=== PATIENT | male | born 1950 | race Two or more races ===

== ENCOUNTER → 2024-11-04 | Outpatient (CLI) | payer MEDICARE, BC, SELFPAY ==
[2024-11-04 09:49] LABS: Collection Type, Urine Clean Catch; RBC,Urine 0 /hpf (0-3); Squamous Epithelial Cell,Urine 0 /hpf (0-5)
[2024-11-04 10:22] LABS: Basophils # (Auto) 0.1 Thou/mm3 (0.0-0.2); Basophils % (Auto) 2 % (0-2.5); Eosinophils # (Auto) 0.3 Thou/mm3 (0.0-0.5); Eosinophils % (Auto) 14 % (0-10); Hemoglobin 11.8 g/dL (13.5-16.0); Immature Granulocytes % (Auto) 2 % (0-0); Immature Granulocytes Auto 0.04 Thou/mm3 (0.00-0.00); Lymphocytes # (Auto) 0.5 Thou/mm3 (1.0-4.8); Lymphocytes % (Auto) 21 % (10-50); Mean Corpuscular HGB Conc 34.7 g/dl (31.0-37.0); Mean Corpuscular Hemoglobin 30.3 pg (25.0-35.0); Mean Corpuscular Volume 87 fL (80-100); Monocytes # (Auto) 0.3 Thou/mm3 (0.0-0.8); Monocytes % (Auto) 12 % (0-12); Neutrophils # (Auto) 1.2 Thou/mm3 (1.8-7.7); Neutrophils % (Auto) 50 % (37-80); Nucleated Red Blood Cell % 0 /100 WBC (0); Platelet Count 92 Thou/mm3 (140-440); RDW Standard Deviation 45.3 fL (35.1-43.9)
[2024-11-04 10:25] LABS: Bacteria,Urine Rare; Bilirubin,Urine Negative (Negative); Blood,Urine Negative (Negative); Clarity,Urine Clear (Clear/Hazy); Color,Urine Lt-Yellow (Lt Yel-Yel); Glucose, Urine 3+ (Negative); Ketones,Urine Negative (Negative); Leukocyte Esterase,Urine Negative (Negative); Nitrite,Urine Negative (Negative); PH,Urine 5.5 (5.0-7.0); Protein,Urine 1+ (Neg - Trace); Specific Gravity,Urine 1.014 (1.001-1.035); Urobilinogen,Urine Negative mg/dL (0.0-1.0); WBC,Urine 1 /hpf (0-5)
[2024-11-04 10:31] LABS: Glucose Estimated Average 146 mg/dL (80-131); Hemoglobin A1C 6.7 % Hgb (4.8-6.0)
[2024-11-04 10:36] LABS: Creatinine MALB Rnd Ur 99 mg/dL (30-125); Microalbumin Creat Ratio 122 mg/gCrea (<30); Microalbumin, Random Urine 121 mg/L (0-300)
[2024-11-04 10:45] LABS: White Blood Count 2.5 Thou/mm3 (3.8-10.6)
[2024-11-04 11:02] LABS: Alanine Aminotransferase 22 U/L (10-49); Albumin, Serum 4.4 gm/dL (3.4-4.8); Albumin/Globulin Ratio 3.4 (1.2-2.2); Alkaline Phosphatase 105 U/L (46-116); Anion Gap 9 (7-16); Aspartate Amino Transferase 14 U/L (0-34); BUN/Creatinine Ratio 10 Ratio (12-20); Bilirubin,Total 0.5 mg/dL (0.3-1.2); Blood Urea Nitrogen 20 mg/dL (9-23); Calcium 9.1 mg/dL (8.3-10.6); Calcium (Corrected) 9.1 mg/dL (8.5-10.1); Carbon Dioxide 27.1 mMol/L (20.0-31.0); Cardiac Risk Estimate 4.2 RATIO (4.0-6.7); Chloride 105 mMol/L (98-107); Cholesterol 101 mg/dL (132-200); Creatinine (Component) 2.1 mg/dL (0.6-1.3); Globulin 1.3 gm/dL (2.3-3.5); Glucose 110 mg/dL (74-106); HDL Cholesterol 24 mg/dL (40-60); LDL Cholesterol,Calculated 42 mg/dL (0-130); Osmolality,Calculated 284 (275-295); Phosphorous 3.7 mg/dL (2.4-5.1); Potassium 4.4 mMol/L (3.4-5.1); Sodium 141 mMol/L (136-145); Total Protein 5.7 gm/dL (5.7-8.2); Triglycerides 176 mg/dL (30-150); eGFR 33 See Note
== END | disposition home or self-care (01) ==
LOC: COPL 08:42
PROVIDERS: PCP Family Medicine; Referring Provider Internal Medicine; Visit Provider Internal Medicine
DX: E11.22 Type 2 diabetes mellitus with diabetic chronic kidney disease (principal); N18.30 Chronic kidney disease, stage 3 unspecified; E11.65 Type 2 diabetes mellitus with hyperglycemia; E78.1 Pure hyperglyceridemia
CPT/HCPCS: 36415; 80053; 80061; 81001; 82043; 82570; 83036; 84100; 85025

== ENCOUNTER → 2025-03-17 | Outpatient (CLI) | payer MEDICARE, BC, SELFPAY ==
[2025-03-17 08:12] LABS: Collection Type, Urine Clean Catch
[2025-03-17 08:36] LABS: Basophils # (Auto) 0.1 Thou/mm3 (0.0-0.2); Basophils % (Auto) 2 % (0-2.5); Eosinophils # (Auto) 0.3 Thou/mm3 (0.0-0.5); Eosinophils % (Auto) 9 % (0-10); Hematocrit 32.9 % (41.0-53.0); Hemoglobin 11.4 g/dL (13.5-16.0); Immature Granulocytes % (Auto) 20 % (0-0); Immature Granulocytes Auto 0.61 Thou/mm3 (0.00-0.00); Lymphocytes # (Auto) 0.5 Thou/mm3 (1.0-4.8); Lymphocytes % (Auto) 16 % (10-50); Mean Corpuscular HGB Conc 34.7 g/dl (31.0-37.0); Mean Corpuscular Hemoglobin 30.8 pg (25.0-35.0); Mean Corpuscular Volume 89 fL (80-100); Monocytes # (Auto) 0.3 Thou/mm3 (0.0-0.8); Monocytes % (Auto) 8 % (0-12); Neutrophils # (Auto) 1.4 Thou/mm3 (1.8-7.7); Neutrophils % (Auto) 45 % (37-80); Nucleated Red Blood Cell % 0 /100 WBC (0); Platelet Count 95 Thou/mm3 (140-440); RDW Standard Deviation 48.5 fL (35.1-43.9); White Blood Count 3.1 Thou/mm3 (3.8-10.6)
[2025-03-17 08:50] LABS: Parathyroid Hormone Intact 122.9 pg/ml (18.5-88.0)
[2025-03-17 08:53] LABS: Creatinine MALB Rnd Ur 58 mg/dL (30-125); Microalbumin Creat Ratio 228 mg/gCrea (<30); Microalbumin, Random Urine 132 mg/L (0-300)
[2025-03-17 08:54] LABS: Albumin, Serum 3.9 gm/dL (3.4-4.8); Anion Gap 7 (7-16); BUN/Creatinine Ratio 11 Ratio (12-20); Blood Urea Nitrogen 27 mg/dL (9-23); Calcium 8.7 mg/dL (8.3-10.6); Calcium (Corrected) 8.8 mg/dL (8.5-10.1); Carbon Dioxide 25.8 mMol/L (20.0-31.0); Chloride 103 mMol/L (98-107); Creatinine (Component) 2.4 mg/dL (0.6-1.3); Glucose 173 mg/dL (74-106); Osmolality,Calculated 281 (275-295); Phosphorous 3.4 mg/dL (2.4-5.1); Potassium 4.1 mMol/L (3.4-5.1); Sodium 136 mMol/L (136-145); eGFR 28 See Note
[2025-03-17 08:55] LABS: Bacteria,Urine Rare; Bilirubin,Urine Negative (Negative); Blood,Urine Trace (Negative); Clarity,Urine Clear (Clear/Hazy); Color,Urine Lt-Yellow (Lt Yel-Yel); Glucose, Urine 3+ (Negative); Ketones,Urine Negative (Negative); Leukocyte Esterase,Urine Negative (Negative); Nitrite,Urine Negative (Negative); Protein,Urine Trace (Neg - Trace); RBC,Urine < 1 /hpf (0-3); Specific Gravity,Urine 1.011 (1.001-1.035); Squamous Epithelial Cell,Urine < 1 /hpf (0-5); Urobilinogen,Urine Negative mg/dL (0.0-1.0); WBC,Urine < 1 /hpf (0-5)
== END | disposition home or self-care (01) ==
LOC: COPL 07:21
PROVIDERS: PCP Family Medicine; Referring Provider Internal Medicine; Visit Provider Internal Medicine
DX: N17.9 Acute kidney failure, unspecified (principal); E11.9 Type 2 diabetes mellitus without complications
CPT/HCPCS: 36415; 80069; 81001; 82043; 82570; 83970; 85025

== ENCOUNTER → 2025-05-18 | Outpatient (CLI) | payer MEDICARE, SELFPAY ==
[2025-05-18 08:06] LABS: Collection Type, Urine Clean Catch
[2025-05-18 08:40] LABS: Basophils % (Auto) 2 % (0-2.5); Eosinophils # (Auto) 0.3 Thou/mm3 (0.0-0.5); Eosinophils % (Auto) 12 % (0-10); Hematocrit 30.2 % (41.0-53.0); Hemoglobin 10.8 g/dL (13.5-16.0); Immature Granulocytes % (Auto) 1 % (0-0); Immature Granulocytes Auto 0.02 Thou/mm3 (0.00-0.00); Lymphocytes # (Auto) 0.6 Thou/mm3 (1.0-4.8); Lymphocytes % (Auto) 28 % (10-50); Mean Corpuscular HGB Conc 35.8 g/dl (31.0-37.0); Mean Corpuscular Hemoglobin 32.3 pg (25.0-35.0); Mean Corpuscular Volume 90 fL (80-100); Monocytes # (Auto) 0.3 Thou/mm3 (0.0-0.8); Monocytes % (Auto) 14 % (0-12); Neutrophils # (Auto) 0.9 Thou/mm3 (1.8-7.7); Neutrophils % (Auto) 43 % (37-80); Nucleated Red Blood Cell % 0 /100 WBC (0); Platelet Count 85 Thou/mm3 (140-440); RDW Standard Deviation 50.3 fL (35.1-43.9); Red Blood Count 3.34 Miln/mm3 (4.50-5.90)
[2025-05-18 08:49] LABS: White Blood Count 2.1 Thou/mm3 (3.8-10.6)
[2025-05-18 08:52] LABS: Glucose Estimated Average 137 mg/dL (80-131); Hemoglobin A1C 6.4 % Hgb (4.8-6.0)
[2025-05-18 08:58] LABS: Parathyroid Hormone Intact 122.2 pg/ml (18.5-88.0)
[2025-05-18 09:00] LABS: Bilirubin,Urine Negative (Negative); Blood,Urine Trace (Negative); Clarity,Urine Clear (Clear/Hazy); Color,Urine Lt-Yellow (Lt Yel-Yel); Glucose, Urine 4+ (Negative); Ketones,Urine Negative (Negative); Leukocyte Esterase,Urine Negative (Negative); Nitrite,Urine Negative (Negative); PH,Urine 6.5 (5.0-7.0); Protein,Urine 1+ (Neg - Trace); RBC,Urine 2 /hpf (0-3); Specific Gravity,Urine 1.019 (1.001-1.035); Squamous Epithelial Cell,Urine 2 /hpf (0-5); Urobilinogen,Urine Negative mg/dL (0.0-1.0); WBC,Urine 1 /hpf (0-5)
[2025-05-18 09:02] LABS: Anion Gap 8 (7-16); BUN/Creatinine Ratio 11 Ratio (12-20); Blood Urea Nitrogen 26 mg/dL (9-23); Calcium 8.7 mg/dL (8.3-10.6); Calcium (Corrected) 8.7 mg/dL (8.5-10.1); Carbon Dioxide 26.8 mMol/L (20.0-31.0); Chloride 106 mMol/L (98-107); Creatinine (Component) 2.4 mg/dL (0.6-1.3); Glucose 262 mg/dL (74-106); Osmolality,Calculated 294 (275-295); Phosphorous 3.2 mg/dL (2.4-5.1); Potassium 4.9 mMol/L (3.4-5.1); Sodium 141 mMol/L (136-145); eGFR 28 See Note
[2025-05-18 09:13] LABS: Creatinine MALB Rnd Ur 66 mg/dL (30-125); Microalbumin Creat Ratio 286 mg/gCrea (<30); Microalbumin, Random Urine 189 mg/L (0-300)
[2025-05-18 12:44] LABS: Path Review Blood Smear Sent to Pathologist
== END | disposition home or self-care (01) ==
PROVIDERS: PCP Family Medicine; Referring Provider Internal Medicine; Visit Provider Internal Medicine
DX: N17.9 Acute kidney failure, unspecified (principal); E11.9 Type 2 diabetes mellitus without complications
CPT/HCPCS: 36415; 80069; 81001; 82043; 82570; 83036; 83970; 85025

== ENCOUNTER → 2025-05-26 | Outpatient (CLI) | payer MEDICARE, BC, SELFPAY ==
--- NOTE | 2025-05-26 14:52 | XR_ITS ---
Examination: Abdomen AP single view Technique: AP portable supine abdomen, single view Exam date and time: May 26, 2025 1354 hours INDICATIONS: Epigastric pain beginning 2 weeks ago. FINDINGS: Abundant stool throughout the colon No free air No abnormal renal or ureteral calculi Severe osteopenia IMPRESSION: Large amounts of stool throughout the colon, no obstruction
== END | disposition home or self-care (01) ==
LOC: CDIM 14:39
PROVIDERS: PCP Family Medicine; Referring Provider Family Medicine; Visit Provider Family Medicine
DX: K59.00 Constipation, unspecified (principal)
CPT/HCPCS: 74018

== ENCOUNTER → 2025-06-10 | Outpatient (CLI) | payer MEDICARE, BC, SELFPAY ==
--- NOTE | 2025-06-10 11:30 | XR_ITS ---
Examination: Abdomen sonogram, complete Date and time of exam: June 10, 2025 1117 hours INDICATIONS: Epigastric pain beginning 3 weeks ago. Technique: Multiple real-time grayscale transabdominal sonographic images of the abdomen have been obtained. Findings: Normal gallbladder Normal common bile duct 0.4 cm Pancreatic head 2.3 cm Aorta not enlarged. Liver 15.8 cm with mildly irregular contour Normal hepatopedal portal venous oh Patent IVC Right kidney 9.3 cm cortex 1.8 cm Left kidney 10.4 cm cortex 2.1 cm Mild renal parenchymal scar formation, no hydronephrosis Splenomegaly 16 cm IMPRESSION: Normal gallbladder Primary hepatocellular disease versus cirrhosis Significant splenomegaly Mild renal parenchymal scar formation
== END | disposition home or self-care (01) ==
PROVIDERS: PCP Family Medicine; Referring Provider Family Medicine; Visit Provider Family Medicine
DX: K76.9 Liver disease, unspecified (principal); R16.1 Splenomegaly, not elsewhere classified; N28.89 Other specified disorders of kidney and ureter
CPT/HCPCS: 76700

== ENCOUNTER → 2025-08-12 | Outpatient (CLI) | payer MEDICARE, BC, SELFPAY ==
[2025-08-12 10:04] LABS: Glucose Estimated Average 134 mg/dL (80-131); Hemoglobin A1C 6.3 % Hgb (4.8-6.0)
[2025-08-12 10:10] LABS: Parathyroid Hormone Intact 127.6 pg/ml (18.5-88.0)
[2025-08-12 10:24] LABS: Albumin, Serum 4.0 gm/dL (3.4-4.8); Anion Gap 9 (7-16); BUN/Creatinine Ratio 9 Ratio (12-20); Blood Urea Nitrogen 20 mg/dL (9-23); Calcium 8.6 mg/dL (8.3-10.6); Calcium (Corrected) 8.6 mg/dL (8.5-10.1); Carbon Dioxide 25.7 mMol/L (20.0-31.0); Chloride 108 mMol/L (98-107); Creatinine (Component) 2.2 mg/dL (0.6-1.3); Glucose 161 mg/dL (74-106); Osmolality,Calculated 290 (275-295); Phosphorous 2.9 mg/dL (2.4-5.1); Potassium 3.6 mMol/L (3.4-5.1); Sodium 143 mMol/L (136-145); eGFR 31 See Note
== END | disposition home or self-care (01) ==
LOC: COPL 08:46
PROVIDERS: PCP Internal Medicine; Referring Provider Internal Medicine; Visit Provider Internal Medicine
DX: I12.9 Hypertensive chronic kidney disease with stage 1 through stage 4 chronic kidney disease, or unspecified chronic kidney disease (principal); E11.22 Type 2 diabetes mellitus with diabetic chronic kidney disease; N18.32 Chronic kidney disease, stage 3b
CPT/HCPCS: 36415; 80069; 83036; 83970

== ENCOUNTER → 2025-10-27 | Outpatient (CLI) | payer MEDICARE, BC, SELFPAY ==
[2025-10-27 09:57] LABS: Basophils # (Auto) 0.1 Thou/mm3 (0.0-0.2); Basophils % (Auto) 2 % (0-2.5); Eosinophils # (Auto) 0.3 Thou/mm3 (0.0-0.5); Eosinophils % (Auto) 7 % (0-10); Hematocrit 30.8 % (41.0-53.0); Hemoglobin 10.6 g/dL (13.5-16.0); Immature Granulocytes Auto 0.26 Thou/mm3 (0.00-0.00); Lymphocytes # (Auto) 0.8 Thou/mm3 (1.0-4.8); Lymphocytes % (Auto) 20 % (10-50); Mean Corpuscular HGB Conc 34.4 g/dl (31.0-37.0); Mean Corpuscular Hemoglobin 33.1 pg (25.0-35.0); Mean Corpuscular Volume 96 fL (80-100); Monocytes # (Auto) 0.3 Thou/mm3 (0.0-0.8); Monocytes % (Auto) 6 % (0-12); Neutrophils # (Auto) 2.4 Thou/mm3 (1.8-7.7); Neutrophils % (Auto) 60 % (37-80); Nucleated Red Blood Cell # 0.00 Thou/mm3 (0.00-0.00); Nucleated Red Blood Cell % 0 /100 WBC (0); Platelet Count 82 Thou/mm3 (140-440); RDW Standard Deviation 53.0 fL (35.1-43.9); Red Blood Count 3.20 Miln/mm3 (4.50-5.90); White Blood Count 4.1 Thou/mm3 (3.8-10.6)
[2025-10-27 10:15] LABS: Parathyroid Hormone Intact 113.5 pg/ml (18.5-88.0)
[2025-10-27 10:17] LABS: Albumin, Serum 4.3 gm/dL (3.4-4.8); Anion Gap 13 (7-16); BUN/Creatinine Ratio 10 Ratio (12-20); Blood Urea Nitrogen 24 mg/dL (9-23); Calcium 8.9 mg/dL (8.3-10.6); Calcium (Corrected) 8.9 mg/dL (8.5-10.1); Carbon Dioxide 23.6 mMol/L (20.0-31.0); Chloride 109 mMol/L (98-107); Creatinine (Component) 2.4 mg/dL (0.6-1.3); Glucose 149 mg/dL (74-106); Osmolality,Calculated 297 (275-295); Phosphorous 3.7 mg/dL (2.4-5.1); Potassium 4.1 mMol/L (3.4-5.1); Sodium 146 mMol/L (136-145); eGFR 28 See Note
[2025-10-27 10:20] LABS: Glucose Estimated Average 131 mg/dL (80-131); Hemoglobin A1C 6.2 % Hgb (4.8-6.0)
[2025-10-27 10:28] LABS: Collection Type, Urine Clean Catch
[2025-10-27 11:07] LABS: Bilirubin,Urine Negative (Negative); Blood,Urine 1+ (Negative); Clarity,Urine Clear (Clear/Hazy); Color,Urine Lt-Yellow (Lt Yel-Yel); Glucose, Urine 2+ (Negative); Ketones,Urine Negative (Negative); Leukocyte Esterase,Urine Negative (Negative); Nitrite,Urine Negative (Negative); PH,Urine 6.0 (5.0-7.0); Protein,Urine 1+ (Neg - Trace); RBC,Urine 2 /hpf (0-3); Specific Gravity,Urine 1.018 (1.001-1.035); Squamous Epithelial Cell,Urine 1 /hpf (0-5); Urobilinogen,Urine Negative mg/dL (0.0-1.0); WBC,Urine 1 /hpf (0-5)
[2025-10-27 11:25] LABS: Creatinine MALB Rnd Ur 93 mg/dL (30-125); Microalbumin Creat Ratio 317 mg/gCrea (<30); Microalbumin, Random Urine 295 mg/L (0-300)
== END | disposition home or self-care (01) ==
LOC: COPL 08:43
PROVIDERS: PCP Family Medicine; Referring Provider Internal Medicine; Visit Provider Internal Medicine
DX: E11.22 Type 2 diabetes mellitus with diabetic chronic kidney disease (principal); I12.9 Hypertensive chronic kidney disease with stage 1 through stage 4 chronic kidney disease, or unspecified chronic kidney disease; N18.32 Chronic kidney disease, stage 3b
CPT/HCPCS: 36415; 80069; 81001; 82043; 82570; 83036; 83970; 85025

== ENCOUNTER → 2025-11-10 | Outpatient (CLI) | payer MEDICARE, BC, SELFPAY ==
--- NOTE | 2025-11-10 12:30 | XR_ITS ---
Examination: MRI abdomen without contrast Date and time of exam: November 10, 2025, 1315 hours INDICATIONS: Epigastric pain abdominal pain discomfort 2 months, abdomen sonogram June 10, 2025 primary parasite or disease versus cirrhosis Technique: Multiple MRI axial and sagittal sections abdomen Sagittal T2-weighted images, TR 3500, TE 118 T1 weighted transverse sections, TR 688 T8.5, T2-weighted sagittal sections T1 weighted sagittal sections TR 621, TE 30 T2 axial sections, TR 4, 190, TE 84. 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
== END | disposition home or self-care (01) ==
PROVIDERS: PCP Family Medicine; Referring Provider Family Medicine; Visit Provider Family Medicine
DX: K76.89 Other specified diseases of liver (principal); R16.1 Splenomegaly, not elsewhere classified
CPT/HCPCS: 74181

== ENCOUNTER 2025-11-13 09:40 | Inpatient (IN) | payer MEDICARE, SELFPAY ==
[2025-11-13] VITALS (70 sets, daily range): BP systolic 77–141; BP diastolic 30–73; PULSE 27–94; RESP 5–29; TEMP 36.4–37.1; O2SAT 80–100; BMI 25.1
--- NOTE | 2025-11-13 09:48 | EDNOTE_ITS ---
ED SOB =RME/HPI General Chief Complaint: Weakness Stated Complaint: WEAKNESS Time Seen by Provider: 11/13/25 09:49 Arrival date/time: 11/13/25 09:40 RME / HPI RME / HPI Narrative: See MDM for Dr. Cristobal's HPI documentation. Related Data Home Medications ?Medication ?Instructions ?Recorded ?Confirmed acyclovir 400 mg tablet 400 mg PO BID 11/14/2211/13 allopurinol 300 mg tablet 300 mg PO QDAY 11/14/2210/25 Held on 11/16/25. Instructions: Resume on 11/30/25. Hold until you see Dr. Lal atorvastatin 40 mg tablet (Lipitor) 40 mg PO .QHS 10/2511/13/25 folic acid 1 mg tablet 1 mg PO QDAY 11/14/22 glipizide 10 mg tablet 10 mg PO BIDAC 11/14/2210/25 pantoprazole 40 mg tablet,delayed 40 mg PO QDAY 11/13/25 release (Protonix) pen needle, diabetic 32 gauge x 11/14/22 11/13/25/ (BD Ultra-Fine Jenny Pen Needle) sennosides 8.6 mg capsule (senna) 8.6 mg PO PRN PRN Co nstipation 11/14/22 11/13/25 benazepril 5 mg tablet 5 mg PO QDAY 11/13/25 Held on 11/16/25. Instructions: Resume on 11/30/25. Hold until you see PCP. You were in ICU with Cardiogenic shock calcitriol 0.25 mcg capsule 0.25 mcg PO QDAY 11/13/25 11/13/25 cholecalciferol (vitamin D3) 10 10 mcg PO QDAY 5 11/13/25 mcg (400 unit) tablet (Vitamin D3) [id number] 300 mcg/0.5 mL 300 mcg .Route .COMPLEX 11/13/25 11/13/25 injection syringe (Zarxio) insulin degludec 100 unit/mL (3 24 unit subcut QAM 11/13/25 mL) subcutaneous pen (Tresiba FlexTouch U-100 insulin) lenalidomide 10 mg capsule 10 mg PO .COMPLEX 11/13/25 11/13/25 (Revlimid) Held on 11/16/25. Instructions: Resume on 11/30/25. Hold until You follow with Dr. Lal multivitamin (Daily Multi-Vitamin 1 tab PO QDAY 11/13/25 tablet) sulfamethoxazole 800 1 tab PO .3x a week 11/13/25 11/13/25 mg-trimethoprim 160 mg tablet Held on 11/16/25. Instructions: Resume on 11/30/25. Hold until You follow with Dr. Lal zanubrutinib 160 mg tablet 320 mg PO QDAY 11/13/25 (Brukinsa) Held on 11/16/25. Instructions: Resume on 11/30/25. Hold until You follow with Dr. Lal Previous Rx's ?Medication ?Instructions ?Recorded aspirin 81 mg capsule 81 mg PO QDAY #30 caps 09/29 amlodipine 5 mg tablet 5 mg PO QDAY 30 days #30 tab s 11/16/25 Allergies Allergy/AdvReac Type Severity Reaction Status Date / Time No Known Allergies Allergy Verified 11/13/25 10:11 Review of Systems Review of Systems Systems Reviewed: All systems reviewed, normal except as documented ED Exam Narrative Physical exam: See MDM for Dr. Cristobal's physical exam documentation. Course Course Course Narrative: CXR is ordered for determining the etiology of shortness of breath. Quality Measures none Orders Category Date Time Status Bedside COVID-19 Antigen Test NOW Care 11/13/25 09:50 Completed Bedside Influenza A&B Antigen Test NOW Care 11/13/25 09:50 Completed Bladder Scan NEEDED Care 11/13/25 11:54 Completed COVID-19 Screening Questionnaire NOW Care 11/13/25 11:45 Completed Decision to Admit X1 Care 11/13/25 11:45 Completed EKG (ED ONLY) *Do not use* NOW Care 11/13/25 09:51 Completed EKG (ED ONLY) *Do not use* NOW Care 11/13/25 11:45 Completed Dugan [Urinary Catheter] QS Care 11/13/25 11:47 Completed Saline [Insert IV] NOW Care 11/13/25 09:50 Completed Straight [In and Out Catheter] X1 Care 11/13/25 09:50 Completed Consult to Cardiology Stat Cons 11/13/25 10:41 Ordered Referral Physical Therapy Stat Cons 11/13/25 09:50 Completed CA echo doppler complete Stat Exams 11/13/25 11:49 Completed EKG (ED Only) Stat Exams 11/13/25 09:51 Draft EKG (ED Only) Stat Exams 11/13/25 11:45 Ordered XR chest 1V portable Stat Exams 11/13/25 09:51 Completed ABG [Arterial Blood Gas] Stat Lab 11/13/25 10:10 Completed Alcohol, Blood Medical Stat Lab 11/13/25 10:05 Completed Ammonia Stat Lab 11/13/25 10:14 Completed Amylase Stat Lab 11/13/25 10:05 Completed BNP [B-Type Natriuretic Peptide] Stat Lab 11/13/25 10:14 Completed Beta Hydroxybutyrate Stat Lab 11/13/25 10:05 Completed Bilirubin,Direct Stat Lab 11/13/25 10:05 Completed Blood Culture (Lab) Stat Lab 11/13/25 10:00 Completed CBC Stat Lab 11/13/25 10:05 Completed CMP [Comprehensive Metabolic Panel] Stat Lab 11/13/25 10:05 Completed CRP [C-Reactive Protein] Stat Lab 11/13/25 10:05 Completed D-Dimer Stat Lab 11/13/25 10:14 Completed Drug Screen,Urine Stat Lab 11/13/25 12:10 Completed ESR [Sed Rate (ESR)] Stat Lab 11/13/25 10:05 Completed Hemoglobin A1C [Glycohemoglobin w (eAG)] Stat Lab 11/13/25 10:14 Completed Lactate (Lactic Acid) Stat Lab 11/13/25 10:05 Completed Lipase Stat Lab 11/13/25 10:05 Completed Magnesium Stat Lab 11/13/25 10:05 Completed Phosphorous Stat Lab 11/13/25 10:14 Completed Procalcitonin Stat Lab 11/13/25 10:05 Completed TSH [Thyroid Stimulating Hormone] Stat Lab 11/13/25 10:05 Completed Troponin I Stat Lab 11/13/25 10:05 Completed UA, C/S IF [Urinalysis, C/S if Indicated] Stat Lab 11/13/25 12:18 Completed Uric Acid Stat Lab 11/13/25 10:14 Completed Albuterol/Ipratr Rt Mariela [Duoneb Rt Mariela] Med 11/13/25 09:50 Discontinued 3 ml INH X1 ONE Azithromycin Inj [Zithromax Inj] 500 mg Med 11/13/25 11:02 Discontinued Sodium Chloride 0.9% 250 ml [Ns] 250 ml IV X1 DOPamine/D5w 400 MG IVPB [Intropin in D5w Ivpb] Med 11/13/25 10:07 Discontinued 400 mg in 250 ml IV 5 mcg/kg/min Furosemide Inj [Lasix Inj] Med 11/13/25 11:31 Discontinued 40 mg IVP X1 ONE Magnesium Sulfate 2 GM Ivpb [Magnesium Sulfate Ivpb] Med 11/13/25 11:19 Discontinued 2 gm in 50 ml IV X1 Magnesium Sulfate 4 GM Ivpb [Magnesium Sulfate Ivpb] Med 11/13/25 11:21 Discontinued 4 gm in 50 ml IV X1 MethylPREDNISolone.* [SoluMEDROL Inj] Med 11/13/25 09:50 Discontinued 125 mg IVP X1 ONE Morphine* Inj Med 11/13/25 11:31 Discontinued 2 mg IV X1 ONE Nitroglycerin Oint 2% [Nitro-paste Oint 2%] Med 11/13/25 11:31 Discontinued 1 inch TOP X1 ONE cefTRIAXone/D5w 1gm IV premix [Rocephin/D5w 1gm IV Med 11/13/25 11:02 Discontinued premix] 1 gm in 50 ml IV X1 BiPAP / CPAP NOW RT 11/13/25 09:50 Completed Vital Signs Vital signs: Vital Signs Temperature 98.7 F 11/13/25 10:05 Pulse Rate 27 L 11/13/25 10:05 Respiratory Rate 14 11/13/25 10:05 Blood Pressure 122/41 L 11/13/25 10:05 Pulse Oximetry (%) 90 L 11/13/25 10:05 Oxygen Delivery Method Oxy Mask 11/13/25 10:05 Oxygen Flow Rate 15 11/13/25 10:05 Shortness of Breath / Dyspnea MDM Narrative MDM Narrative:: This section includes all my notes and documentations, including HPI, PE, and ED course. Luis Cristobal MD HPI: 75-year-old male with lymphoma here with worsening weakness and shortness of breath and cough and fever. ROS: All negative except as documented in HPI. Neuro: Alert and oriented X 3. Physical Exam: General: Alert and oriented. No acute distress. Hypoxia noted. In respiratory distress. Eyes: Conjunctivae and lids clear. EOMI. PERRL. ENT: No nasal congestion. Pharynx normal. Tympanic membrane normal bilaterally. Neck: Supple. No carotid bruit. No JVD. Heart: Severe bradycardia noted. Lungs: No respiratory distress. Decreased air movement with rales. Abdomen: Soft and nontender. Legs: No clubbing, cyanosis, edema. Skin: Warm and dry. Neuro: Alert and oriented X 3. Cranial Nerves II-XII grossly intact. No peripheral motor deficits. Musculoskeletal: All major joints and bones are not tender with no limited ROM. I reviewed EMS notes. I reviewed all diagnostic test results: My interpretation of the EKG: Complete heart block (26 bpm). My interpretation of the chest x-ray is pneumonia in right lower field. Blood tests and urine tests remarkable for D-Dimer 2020, Cr 4.1, Mg 1.4 Glu 281, Trop 0.319, LA 8.2, Procalcitonin 4.62, CRP 6.8, hydroxybutyrate 0.9, and BNP 738. ABG showed pH 7.41, pCO2 25, pHCO3 16. Covid positive. At this point, diagnoses include: Complete heart block Acute respiratory failure with hypoxia Sepsis Pneumonia NSTEMI Hypomagnesemia CHF Treatment here included: BiPAP Dopamine drip DuoNeb Solumedrol 125 mg IV Lasix 40 mg IV Topical NTG Morphine 2 mg IV MgSO4 4 gram IV Zithromax 500 mg IV Rocephin 1 gram IV Patient remained stable. I discussed the case with our ICU team. About the presentation and exam and diagnostics and treatments here. And need of further care in the hospital. Agreed to accept the patient. Luis Cristobal MD Patient data External records reviewed:: [facility] previous records (Per chart review, patient was seen here on 04/13/24 for diffuse large B cell lymphoma.) and EMS form Clinical information provided by:: patient and EMS Social determinants that could affect healthcare access:: none Patient has the following chronic illnesses:: diffuse large B-cell lymphoma status postchemotherapy 2017 in remission, status postcraniotomy 2021, HTN, HLD, DM How is presenting disease/condition affected by chronic disease/condition?: exacerbated by Evaluation data The following diagnostics were reviewed and interpreted by me:: lab results, radiology exam(s) and EKG tracing(s) (My interpretation of the EKG: Complete heart block (26 bpm). Luis Cristobal MD) Lab and/or radiology exams considered but not ordered:: none Interpretation Summary: I reviewed all diagnostic test results: My interpretation of the EKG: Complete heart block (26 bpm). My interpretation of the chest x-ray is pneumonia in right lower field. Blood tests and urine tests remarkable for D-Dimer 2020, Cr 4.1, Mg 1.4 Glu 281, Trop 0.319, LA 8.2, Procalcitonin 4.62, CRP 6.8, hydroxybutyrate 0.9, and BNP 738. ABG showed pH 7.41, pCO2 25, pHCO3 16. Covid positive. Medications / Prescriptions Medications or Prescriptions considered but not ordered:: none Medication administrations:: Medication Administration History Discontinued Medications Acetaminophen (Acetaminophen 325 Mg Tablet) 650 mg PO Q6HR PRN PRN Reason: pain 1-3 or temp>100.2 Stop: 12/13/25 12:18 Albuterol/Ipratropium (Albuterol/Ipratropium (Duoneb) Rt Mariela 3 Ml Nebu) 3 ml INH X1 ONE Stop: 11/13/25 09:51 Last Admin: 11/13/25 10:13 Dose: 3 ml Documented By: MARGOTH Albuterol/Ipratropium (Albuterol/Ipratropium (Duoneb) Rt Mariela 3 Ml Nebu) 3 ml INH Q6HRRT PRN PRN Reason: wheezing or SOB Stop: 12/13/25 18:59 Amlodipine Besylate (Amlodipine Besylate 5 Mg Tablet) 5 mg PO QDAY ANG Stop: 12/16/25 08:59 Last Admin: 11/16/25 09:22 Dose: 5 mg Documented By: NANY Atorvastatin Calcium (Atorvastatin Calcium 20 Mg Tablet) 40 mg PO HS ANG Stop: 12/13/25 20:59 Last Admin: 11/15/25 20:17 Dose: 40 mg Documented By: Admin: 11/14/25 21:59 Dose: 40 mg Documented By: Admin: 11/13/25 20:14 Dose: 40 mg Documented By: Dextrose (Dextrose 50%-Water Inj 50 Ml Syringe) 25 ml IV Q15MIN PRN PRN Reason: BG 50-70 responsive npo pt Stop: 12/13/25 15:04 Dextrose (Dextrose 50%-Water Inj 50 Ml Syringe) 50 ml IV Q15MIN PRN PRN Reason: BG <50 OR BG <70 & pt unresponsive Stop: 12/13/25 15:04 Famotidine (Famotidine Inj 10 Mg/Ml Vial 2 Ml) 20 mg IVP BID ANG Stop: 12/13/25 20:59 Last Admin: 11/16/25 09:22 Dose: 20 mg Documented By: Admin: 11/15/25 20:17 Dose: 20 mg Documented By: Admin: 11/15/25 09:17 Dose: 20 mg Documented By: Admin: 11/14/25 22:01 Dose: 20 mg Documented By: Admin: 11/14/25 08:18 Dose: 20 mg Documented By: Admin: 11/13/25 20:18 Dose: 20 mg Documented By: Furosemide (Furosemide Inj 10 Mg/Ml 4ml Vial) 40 mg IVP X1 ONE Stop: 11/13/25 11:32 Last Admin: 11/13/25 11:56 Dose: Not Given Documented By: MAURICIO Non-Admin Reason: Cancelled by Provider Comments: PER MD AT BEDSIDE Glucagon (Glucagon Inj 1 Mg Vial) 1 mg IM Q15MIN PRN PRN Reason: BG <70, and no IV access Dopamine HCl/Dextrose (Intropin In D5w Ivpb) 400 mg in 250 mls @ 15.309 mls/hr IV .[id number] [facility]; Protocol Stop: 12/13/25 10:06 Last Titration: 11/13/25 19:00 Dose: Infused Documented By: Titration: 11/13/25 18:00 Dose: 8.5 mcg/kg/min, 26.025 mls/hr Documented By: Titration: 11/13/25 17:15 Dose: 8.5 mcg/kg/min, 26.025 mls/hr Documented By: Titration: 11/13/25 17:00 Dose: 7.5 mcg/kg/min, 22.963 mls/hr Documented By: Titration: 11/13/25 16:55 Dose: 7.5 mcg/kg/min, 22.963 mls/hr Documented By: Titration: 11/13/25 16:00 Dose: 10 mcg/kg/min, 30.618 mls/hr Documented By: Titration: 11/13/25 15:30 Dose: 10 mcg/kg/min, 30.618 mls/hr Documented By: Titration: 11/13/25 15:25 Dose: 7.5 mcg/kg/min, 22.963 mls/hr Documented By: Titration: 11/13/25 10:55 Dose: 11 mcg/kg/min, 33.679 mls/hr Documented By: Titration: 11/13/25 10:45 Dose: 11 mcg/kg/min, 33.679 mls/hr Documented By: Titration: 11/13/25 10:35 Dose: 9 mcg/kg/min, 27.556 mls/hr Documented By: Titration: 11/13/25 10:25 Dose: 7 mcg/kg/min, 21.432 mls/hr Documented By: Admin: 11/13/25 10:15 Dose: 5 mcg/kg/min, 15.309 mls/hr Documented By: VL Ceftriaxone Sodium/Dextrose (Rocephin/D5w 1gm Iv Premix) 1 gm in 50 mls @ 100 mls/hr IV X1 ONE Stop: 11/13/25 11:31 Last Infusion: 11/13/25 12:48 Dose: Infused Documented By: Admin: 11/13/25 12:18 Dose: 100 mls/hr Documented By: TM Azithromycin 500 mg/ Sodium (Chloride) 250 mls @ 250 mls/hr IV X1 ONE Stop: 11/13/25 12:01 Last Admin: 11/13/25 12:23 Dose: 250 mls/hr Documented By: TM Magnesium Sulfate (Magnesium Sulfate Ivpb) 2 gm in 50 mls @ 25 mls/hr IV X1 ONE Stop: 11/13/25 13:18 Last Admin: 11/13/25 17:17 Dose: Not Given Documented By: Non-Admin Reason: Discontinued Magnesium Sulfate (Magnesium Sulfate Ivpb) 4 gm in 50 mls @ 12.5 mls/hr IV X1 ONE Stop: 11/13/25 15:20 Last Admin: 11/13/25 12:21 Dose: 12.5 mls/hr Documented By: TM Ceftriaxone Sodium/Dextrose (Rocephin/D5w 1gm Iv Premix) 1 gm in 50 mls @ 100 mls/hr IV QDAY ANG Stop: 11/21/25 08:59 Last Admin: 11/14/25 08:16 Dose: 100 mls/hr Documented By: CONCEPCION Azithromycin 500 mg/ Sodium (Chloride) 250 mls @ 250 mls/hr IV QDAY ANG Stop: 11/15/25 08:59 Last Admin: 11/14/25 08:17 Dose: 250 mls/hr Documented By: CONCEPCION Dopamine HCl/Dextrose (Intropin In D5w Ivpb) 400 mg in 250 mls @ 15.309 mls/hr IV .[id number] ANG; Protocol Stop: 12/13/25 10:06 Last Admin: 11/14/25 20:32 Dose: Not Given Documented By: BELÉN Non-Admin Reason: Discontinued Titration: 11/14/25 07:55 Dose: 0 mcg/kg/min, 0 mls/hr Documented By: Titration: 11/14/25 07:00 Dose: 2.5 mcg/kg/min, 7.654 mls/hr Documented By: Titration: 11/14/25 06:00 Dose: 2.5 mcg/kg/min, 7.654 mls/hr Documented By: Titration: 11/14/25 05:00 Dose: 2.5 mcg/kg/min, 7.654 mls/hr Documented By: Titration: 11/14/25 04:15 Dose: 4.5 mcg/kg/min, 13.778 mls/hr Documented By: Titration: 11/14/25 04:00 Dose: 6.5 mcg/kg/min, 19.901 mls/hr Documented By: Titration: 11/14/25 03:00 Dose: 6.5 mcg/kg/min, 19.901 mls/hr Documented By: Titration: 11/14/25 02:00 Dose: 6.5 mcg/kg/min, 19.901 mls/hr Documented By: Titration: 11/14/25 01:00 Dose: 6.5 mcg/kg/min, 19.901 mls/hr Documented By: Titration: 11/14/25 00:00 Dose: 8.5 mcg/kg/min, 26.025 mls/hr Documented By: Titration: 11/13/25 23:00 Dose: 8.5 mcg/kg/min, 26.025 mls/hr Documented By: Titration: 11/13/25 22:00 Dose: 8.5 mcg/kg/min, 26.025 mls/hr Documented By: Titration: 11/13/25 21:00 Dose: 8.5 mcg/kg/min, 26.025 mls/hr Documented By: Titration: 11/13/25 20:00 Dose: 8.5 mcg/kg/min, 26.025 mls/hr Documented By: Admin: 11/13/25 19:31 Dose: 8.5 mcg/kg/min, 26.025 mls/hr Documented By: Calcium Gluconate/Sodium Chloride (Calcium Gluc/Ns 1000mg Ivpb) 1,000 mg in 50 mls @ 50 mls/hr IV X1 ONE Stop: 11/13/25 18:17 Last Infusion: 11/13/25 19:09 Dose: Infused Documented By: Admin: 11/13/25 18:08 Dose: 50 mls/hr Documented By: CONCEPCION Lactated Ringer's (Lactated Ringers) 1,000 mls @ 80 mls/hr IV .[id number] ONE Stop: 11/14/25 20:44 Last Admin: 11/14/25 08:18 Dose: 80 mls/hr Documented By: CONCEPCION Doxycycline Hyclate 100 mg/ (Sodium Chloride) 100 mls @ 100 mls/hr IV BID ANG Stop: 11/21/25 20:59 Last Admin: 11/16/25 09:22 Dose: 100 mls/hr Documented By: Infusion: 11/15/25 21:17 Dose: Infused Documented By: Admin: 11/15/25 20:17 Dose: 100 mls/hr Documented By: Infusion: 11/15/25 10:16 Dose: Infused Documented By: Admin: 11/15/25 09:16 Dose: 100 mls/hr Documented By: Infusion: 11/14/25 23:00 Dose: Infused Documented By: Admin: 11/14/25 22:00 Dose: 100 mls/hr Documented By: BELÉN Sodium Chloride (Ns) 1,000 mls @ 80 mls/hr IV .[id number] ANG Stop: 12/15/25 10:05 Last Admin: 11/15/25 23:14 Dose: 80 mls/hr Documented By: XIAO Comments: Previous bag was still running. Infusion: 11/15/25 23:14 Dose: Infused Documented By: Admin: 11/15/25 11:21 Dose: 80 mls/hr Documented By: NANY Insulin Degludec (Insulin Degludec 5 Unit/0.05 Ml (Per 5 Units)) 18 unit SC QDAY@0600 [facility] Stop: 12/14/25 05:59 Insulin Degludec (Insulin Degludec 5 Unit/0.05 Ml (Per 5 Units)) 18 unit SC HS ANG Stop: 12/13/25 20:59 Insulin Degludec (Insulin Degludec 5 Unit/0.05 Ml (Per 5 Units)) 18 unit SC HS [facility] Stop: 12/13/25 20:59 Last Admin: 11/13/25 21:17 Dose: 18 unit Documented By: Co-signed By: GERMAN Insulin Degludec (Insulin Degludec 5 Unit/0.05 Ml (Per 5 Units)) 25 unit SC HS [facility] Stop: 12/14/25 20:59 Last Admin: 11/15/25 20:24 Dose: 25 unit Documented By: XIAO Co-signed By: GERMAN Admin: 11/14/25 22:00 Dose: 25 unit Documented By: BELÉN Co-signed By: GERMAN Insulin Degludec (Insulin Degludec 5 Unit/0.05 Ml (Per 5 Units)) 7 unit SC X1 ONE Stop: 11/14/25 07:34 Last Admin: 11/14/25 08:17 Dose: 7 unit Documented By: CONCEPCION Co-signed By: MALGORZATA Insulin Human Lispro (Insulin Lispro (Admelog) 1 Unit/0.01 Ml Unit) 0 unit SC Q6HR [facility]; Protocol Stop: 12/13/25 17:59 Last Admin: 11/15/25 19:58 Dose: Not Given Documented By: XIAO Non-Admin Reason: Discontinued Insulin Human Lispro (Insulin Lispro (Admelog) 1 Unit/0.01 Ml Unit) 0 unit SC Q6HR [facility]; Protocol Stop: 12/13/25 17:59 Insulin Human Lispro (Insulin Lispro (Admelog) 1 Unit/0.01 Ml Unit) 0 unit SC ACHS [facility]; Protocol Stop: 12/13/25 18:44 Last Admin: 11/16/25 12:10 Dose: Not Given Documented By: NANY Non-Admin Reason: Per Protocol Admin: 11/16/25 07:29 Dose: Not Given Documented By: NANY Non-Admin Reason: Per Protocol Admin: 11/15/25 20:25 Dose: 3 unit Documented By: XIAO Co-signed By: GERMAN Admin: 11/15/25 17:49 Dose: Not Given Documented By: NANY Non-Admin Reason: Per Protocol Admin: 11/15/25 11:50 Dose: 3 unit Documented By: NANY Co-signed By: margoth Admin: 11/15/25 07:36 Dose: Not Given Documented By: NANY Non-Admin Reason: Per Protocol Admin: 11/14/25 22:00 Dose: 3 unit Documented By: BELÉN Co-signed By: GERMAN Admin: 11/14/25 17:52 Dose: Not Given Documented By: CONCEPCION Non-Admin Reason: bg 124 Admin: 11/14/25 11:21 Dose: 4 unit Documented By: CONCEPCION Co-signed By: MALGORZATA Admin: 11/14/25 08:17 Dose: 4 unit Documented By: CONCEPCION Co-signed By: MALGORZATA Admin: 11/13/25 21:19 Dose: 6 unit Documented By: Co-signed By: Admin: 11/13/25 18:44 Dose: 1 unit Documented By: CONCEPCION Co-signed By: RH Insulin Human Lispro (Insulin Lispro (Admelog) 1 Unit/0.01 Ml Unit) 8 unit SC AC [facility] Stop: 12/13/25 18:39 Last Admin: 11/15/25 07:36 Dose: Not Given Documented By: NANY Non-Admin Reason: Per Protocol Admin: 11/14/25 17:53 Dose: Not Given Documented By: CONCEPCION Non-Admin Reason: BG 124 Admin: 11/14/25 11:22 Dose: 8 unit Documented By: CONCEPCION Co-signed By: MALGORZATA Admin: 11/14/25 08:34 Dose: Not Given Documented By: CONCEPCION Non-Admin Reason: held per Admin: 11/13/25 18:45 Dose: 8 unit Documented By: CONCEPCION Co-signed By: RH Insulin Human Lispro (Insulin Lispro (Admelog) 1 Unit/0.01 Ml Unit) 5 unit SC TIDWM ANG Stop: 12/15/25 11:59 Last Admin: 11/16/25 12:10 Dose: Not Given Documented By: NANY Non-Admin Reason: Per Protocol Admin: 11/16/25 07:29 Dose: Not Given Documented By: NANY Non-Admin Reason: Per Protocol Admin: 11/15/25 17:49 Dose: Not Given Documented By: NANY Non-Admin Reason: Per Protocol Admin: 11/15/25 11:50 Dose: 5 unit Documented By: NANY Co-signed By: margoth Insulin Human Regular (Insulin Hum Regular 1 Unit/0.01 Ml (Per Unit)) 10 unit IV X1 ONE Stop: 11/13/25 17:12 Last Admin: 11/13/25 17:40 Dose: 10 unit Documented By: CONCEPCION Co-signed By: Melatonin (Melatonin 3 Mg Tablet) 3 mg PO HS [facility] Stop: 12/15/25 20:59 Last Admin: 11/15/25 20:17 Dose: 3 mg Documented By: XIAO Methylprednisolone Sodium Succinate (Methylprednisolone Sod Succ 62.5 Mg/Ml 2ml Vial) 125 mg IVP X1 ONE Stop: 11/13/25 09:51 Last Admin: 11/13/25 10:10 Dose: 125 mg Documented By: MAURICIO Morphine Sulfate (Morphine Sulf Inj 4 Mg/Ml Vial) 2 mg IV X1 ONE Stop: 11/13/25 11:32 Last Admin: 11/13/25 11:56 Dose: Not Given Documented By: MAURICIO Non-Admin Reason: Cancelled by Provider Nitroglycerin (Nitroglycerin Oint 2% 1 Inch Packet) 1 inch TOP X1 ONE Stop: 11/13/25 11:32 Last Admin: 11/13/25 12:17 Dose: Not Given Documented By: TM Non-Admin Reason: Cancelled by Provider Ondansetron HCl (Ondansetron Inj 2 Mg/Ml Inj 2 Ml) 4 mg IVP Q6H PRN; Protocol PRN Reason: NAUSEA OR VOMITING Stop: 12/13/25 12:03 Sennosides (Senna/Docusate Sod 1 Tab Tablet) 1 tab PO QDAY [facility]; Protocol Stop: 12/15/25 08:59 Last Admin: 11/16/25 09:23 Dose: Not Given Documented By: NANY Non-Admin Reason: Patient Refused Admin: 11/15/25 09:17 Dose: 1 tab Documented By: NANY Sodium Chloride (Sodium Chloride Rt 10% 15 Ml Nebu) 5 ml INH X1 ONE Stop: 11/14/25 16:47 Last Admin: 11/14/25 22:18 Dose: Not Given Documented By: BELÉN Non-Admin Reason: previous shift Treatment here ROM ME included: BiPAP Dopamine drip DuoNeb Solumedrol 125 mg IV Lasix 40 mg IV Topical NTG Morphine 2 mg IV MgSO4 4 gram IV Zithromax 500 mg IV Rocephin 1 gram IV Consultations Consultation(s) initiated? (list below): Yes Consultation #1 (Physician, Specialty, Details): I discussed the case with our ICU team. About the presentation and exam and diagnostics and treatments here. And need of further care in the hospital. Will accept the patient. Diagnosis Shortness of Breath Differential Diagnosis: acute exacerbation of chronic obstructive airways disease, congestive heart failure, community acquired pneumonia, asthma with exacerbation and pulmonary embolism Most likely diagnosis given after review of the tests above:: Complete heart block Acute respiratory failure with hypoxia Sepsis Pneumonia NSTEMI Hypomagnesemia CHF Admission Indicated Admission indicated?: indicated Explain why admission is indicated or not indicated:: Complete heart block Acute respiratory failure with hypoxia Sepsis Pneumonia NSTEMI Hypomagnesemia CHF Admission Request Was there a request for admission?: Yes Admission Attestation Admission request attestation: Discussed case with ICU service regarding admission. Discussed patients ED course, exam findings, labs, and radiology results. Agreed to accept the patient for admission. Disposition Plan Disposition Plan: Admit Critical Care Time Critical Care Time Critical Care Time: Yes Total Critical Care Time (min.): 45 Attestation: Due to a high probability of clinically significant, life threatening deterioration, the patient required my highest level of preparedness to intervene emergently and I personally spent this critical care time directly and personally managing the patient. This critical care time included obtaining a history; examining the patient; ordering and review of studies; arranging urgent treatment with development of a management plan; evaluation of patient's response to treatment; frequent reassessment; and discussions with family and other providers. It was exclusive of separately billable procedures and treating other patients and teaching time. Luis Cristobal MD Discharge Plan Plan Patient Disposition: Admit Acute Care w/in Hospital Patient condition on transfer: Stable and Benefits outweigh risks Problem List Clinical Impression: Complete heart block, Acute respiratory failure with hypoxia, Sepsis, Pneumonia, Non-ST elevation myocardial infarction (NSTEMI), Hypomagnesemia, CHF (congestive heart failure)
--- NOTE | 2025-11-13 09:51 | XR_ITS ---
EXAMINATION: AP chest single view TECHNIQUE: Portable sitting AP chest single view Date and time: November 13, 2025, 1019 hours, comparison January 26, 2024 INDICATIONS: Shortness of breath today. FINDINGS: Significant right lung pneumonia Mild associated heart failure with enlarged cardiac contour and prominent vascular congestion Moderate osteopenia IMPRESSION: Significant right lung pneumonia Mild associated heart failure
--- NOTE | 2025-11-13 09:51 | EKG_ITS ---
[facility] Test Date: 2025-11-13 Pat Name: SAIRA ROSSI Department: Room: - Gender: Male Accessioner: : 1950 Requested By: Luis Glover Order Number: [id number] Reading MD: Luis Glover Measurements Intervals Liberty Rate: 26 P: OR: QRS: 37 QRSD: 95 T: 45 QT: 647 QTc: 429 Interpretive Statements SUPRAVENTRICULAR BRADYCARDIA INDETERMINATE AXIS INCOMPLETE RIGHT BUNDLE BRANCH BLOCK [90+ ms QRS DURATION, TERMINAL R IN V1/V2, 40+ ms S IN I/aVL/V4/V5/V6] ST DEPRESSION, CONSIDER SUBENDOCARDIAL INJURY [0.1+ mV ST DEPRESSION] PROLONGED QT INTERVAL CRITICAL TEST RESULT Compared to ECG 09/28/2023 13:38:37 Indeterminate axis now present Incomplete right bundle-branch block now present ST (T wave) deviation now present Prolonged QT interval now present Sinus bradycardia no longer present /store/S0/[id number].pdf
[2025-11-13] MEDS: MethylPREDNISolone SOD SUCC 62.5 MG/ML 2ML VIAL 125 MG IVP (10:10)
[2025-11-13 10:13] LABS: Base Excess -7 (-3-3); HCO3 16 mEq/L (20-26); Inspired O2, VO2 Liters 15 L/min; Inspired Oxygen, FIO2 21 %; O2 Saturation 88 % (91-98); PCO2 25 mmHg (32.0-48.0); pH, Arterial 7.41 (7.35-7.45)
[2025-11-13] MEDS: ALBUTEROL/IPRATROPIUM (Duoneb) RT SOL 3 ML NEBU INH (10:13)
[2025-11-13] MEDS: DOPamine/D5w 400 MG IVPB 400 MG/250 ML BAG 15.309 MG IV (10:15)
[2025-11-13 10:31] LABS: Beta Hydroxybutyrate 0.9 mmol/L (<0.6)
[2025-11-13 10:37] LABS: Basophils # (Auto) 0.1 Thou/mm3 (0.0-0.2); Basophils % (Auto) 1 % (0-2.5); Eosinophils # (Auto) 0.0 Thou/mm3 (0.0-0.5); Eosinophils % (Auto) 0 % (0-10); Hematocrit 36.8 % (41.0-53.0); Hemoglobin 12.4 g/dL (13.5-16.0); Immature Granulocytes Auto 0.36 Thou/mm3 (0.00-0.00); Lymphocytes # (Auto) 1.1 Thou/mm3 (1.0-4.8); Lymphocytes % (Auto) 11 % (10-50); Mean Corpuscular HGB Conc 33.7 g/dl (31.0-37.0); Mean Corpuscular Hemoglobin 32.3 pg (25.0-35.0); Mean Corpuscular Volume 96 fL (80-100); Monocytes # (Auto) 0.9 Thou/mm3 (0.0-0.8); Monocytes % (Auto) 9 % (0-12); Neutrophils # (Auto) 7.9 Thou/mm3 (1.8-7.7); Neutrophils % (Auto) 76 % (37-80); Nucleated Red Blood Cell # 0.00 Thou/mm3 (0.00-0.00); Nucleated Red Blood Cell % 0 /100 WBC (0); Platelet Count 104 Thou/mm3 (140-440); RDW Standard Deviation 53.5 fL (35.1-43.9); Red Blood Count 3.84 Miln/mm3 (4.50-5.90); White Blood Count 10.4 Thou/mm3 (3.8-10.6)
[2025-11-13 10:50] LABS: Ammonia < 10 uMol/L (11-32)
[2025-11-13 10:51] LABS: D-Dimer 2020 ng/mL (<600)
[2025-11-13 10:52] LABS: Allen Test Performed/OK; PO2 53 mmHg (83-108); Puncture Site Right Radial
[2025-11-13 10:55] LABS: Lactate (Lactic Acid) 8.2 mMol/L (0.4-2.0)
[2025-11-13 11:01] LABS: Sed Rate (ESR) 3 mm/hr (0-20)
[2025-11-13 11:10] LABS: Alanine Aminotransferase 37 U/L (10-49); Albumin, Serum 4.5 gm/dL (3.4-4.8); Albumin/Globulin Ratio 2.5 (1.2-2.2); Alcohol, Blood Medical < 3.0 mg/dL (0-10.0); Alkaline Phosphatase 85 U/L (46-116); Amylase 48 U/L (30-118); Anion Gap 19 (7-16); Aspartate Amino Transferase 33 U/L (0-34); BUN/Creatinine Ratio 8 Ratio (12-20); Bilirubin,Direct 0.6 mg/dL (0.0-0.3); Bilirubin,Total 1.4 mg/dL (0.3-1.2); Blood Urea Nitrogen 32 mg/dL (9-23); C-Reactive Protein 6.8 mg/dL (0.0-0.9); Calcium 8.9 mg/dL (8.3-10.6); Calcium (Corrected) 8.9 mg/dL (8.5-10.1); Carbon Dioxide 17.2 mMol/L (20.0-31.0); Chloride 103 mMol/L (98-107); Creatinine (Component) 4.1 mg/dL (0.6-1.3); Estimated Creatinine Clearance 17.1 mL/min (>60); Globulin 1.8 gm/dL (2.3-3.5); Glucose 281 mg/dL (74-106); Lipase 24 U/L (12-53); Magnesium 1.4 mg/dL (1.6-2.6); Osmolality,Calculated 294 (275-295); Potassium 4.8 mMol/L (3.4-5.1); Procalcitonin 4.62 ng/ml (0.0-0.49); Sodium 139 mMol/L (136-145); Thyroid Stimulating Hormone 1.92 uIU/mL (0.55-4.78); Total Protein 6.3 gm/dL (5.7-8.2); eGFR 15 See Note
[2025-11-13 11:13] LABS: Troponin I 0.319 ng/mL (0.0-0.045)
[2025-11-13 11:24] LABS: B-Type Natriuretic Peptide 738 pg/mL (0-100)
--- NOTE | 2025-11-13 11:49 | ECHO_ITS ---
Patient Info Name: Geremias Melendrez Age: 75 years : 1950 Gender: Male Ht: 180 cm Wt: 82 kg BSA: 2.03 m2 BP: 110 / 53 mmHg Exam Date: 11/13/2025 5:08 PM Admit Date: 11/13/2025 Site: [facility] Patient Status: I Exam Type: CA echo doppler complete Rail Car Repairman: Gladys Yee Ordering Physician: Jesus Brannon Study Info Indications HF - Primary Location: S2SX Left Ventricular Outflow Tract Name Value Normal LVOT 2D LVOT Diameter 2.0 cm LVOT Doppler LVOT Peak Velocity 100 cm/s LVOT Mean Gradient 2 mmHg LVOT VTI 19 cm LVOT VTI/AV VTI Ratio 0.7 LVOT Stroke Volume 60 ml Pulmonic Valve Name Value Normal PV Doppler PV Peak Velocity 157 cm/s Mitral Valve Name Value Normal MV Doppler MV Mean Gradient 1 mmHg MV Area (Cont Eq VTI) 2.5 cm2 MV Annular TDI MV Septal e' Velocity 5.0 cm/s MV Lateral e' Velocity 6.0 cm/s MV e' Average 5.49 cm/s Tricuspid Valve Name Value Normal TV Regurgitation Doppler TR Peak Velocity 202 cm/s Estimated PAP/RSVP RA Pressure 3 mmHg <=5 PA Systolic Pressure 19 mmHg <36 RV Systolic Pressure 19 mmHg <36 Aortic Valve Name Value Normal AV 2D/MM AV Cusp Sep (MM) 1.5 cm AV Doppler AV Peak Velocity 141 cm/s AV Mean Gradient 5 mmHg AV VTI 27 cm AV Area (Cont Eq VTI) 2.3 cm2 >=3.0 AV Area (Cont Eq Ino) 2.2 cm2 AV DI (Ino) 0.71 AV Regurgitation 2D LVOT Area 3.1 cm2 Ventricles Name Value Normal LV Dimensions 2D/MM IVS Diastolic Thickness (2D) 1.1 cm 0.6-1.0 LVID Diastole (2D) 4.1 cm 4.2-5.8 LVIW Diastolic Thickness (2D) 1.5 cm 0.6-1.0 LVID Systole (2D) 2.5 cm 2.5-4.0 LVOT Diameter 2.0 cm LV Mass (2D Cubed) 193.49 g 88.00-224.00 LV Mass Index (2D Cubed) 95 g/m2 49-115 Relative Wall Thickness (2D) 0.73 <=0.42 IVS/LVIW Diastolic Thickness (2D) 0.73 0.00-1.50 LV Fractional Shortening/Ejection Fraction 2D/MM LV Fractional Shortening (2D) 39 % 25-43 LV EF (2D Teichholz) 70 % Atria Name Value Normal LA Dimensions LA Volume (4C A-L) 43 ml LA Volume (BP A-L) 44 ml Left Ventricle Left ventricular chamber dimension is normal. Left ventricular systolic function is normal with visually estimated ejection fraction of 55-60%. There is mild concentric hypertrophy noted in the left ventricle. Left ventricular segmental wall motion is normal. There is grade I diastolic dysfunction in the left ventricle. Right Ventricle Right ventricular chamber dimension is normal. Right ventricular systolic function is normal. Left Atrium Left atrial chamber dimension is normal. Right Atrium Right atrial chamber dimension is normal. Aortic Valve The aortic valve is trileaflet. There is mild aortic valve sclerosis. There is no aortic valve stenosis with a peak velocity of 141 cm/s, mean gradient of 5 mmHg, and aortic valve area of 2.3 cm2. There is mild aortic valve regurgitation. Pulmonic Valve The pulmonic valve is normal. There is no pulmonic valve stenosis. There is no pulmonic regurgitation. Mitral Valve The mitral valve has thickened leaflets. There is no mitral valve stenosis. There is trace mitral valve regurgitation. Tricuspid Valve The tricuspid valve leaflets are normal. There is no tricuspid valve stenosis. There is trace tricuspid valve regurgitation. No pulmonary hypertension, estimated pulmonary arterial systolic pressure is 19 mmHg and systemic blood pressure of 110 mmHg in systole. Pericardium/Pleural There is trivial pericardial effusion with no tamponade. Pleural effusion visualized. Inferior Vena Cava Not well visualized inferior vena cava with >50% collapse upon inspiration consistent with normal right atrial pressure, 3 mmHg. Aorta The aortic measurements are indexed to age and body surface area. The aortic root at the sinus of Valsalva is not well visualized. The prox ascending aorta is not well visualized. Summary 1. Left ventricle size is normal and systolic function is normal. Estimated ejection fraction is 55-60%. There is grade I diastolic dysfunction. There is mild concentric hypertrophy noted. 2. Right ventricle chamber size is normal and systolic function is normal. Estimated RVSP is 19 mmHg. 3. There is mild aortic valve sclerosis with no stenosis and mild regurgitation. 4. There is trace mitral and tricuspid valve regurgitation. Mild MAC. 5. There is trivial pericardial effusion with no tamponade. 6. Pleural effusion visualized. Report Signatures Finalized by Lino Collins on 11/13/2025 07:51 PM
[2025-11-13] MEDS: cefTRIAXone/D5w 1gm IV premix 1 GM/50 ML BAG IV (12:18)
--- NOTE | 2025-11-13 12:18 | ESHP_ITS ---
<Statement entered by Ady Wang MD - 11/13/25 18:51> I have reviewed the note and agree with the resident's assessment & plan with exceptions as below. I have personally reviewed labs, imaging, home meds/prior records, examined the patient, formulated and discussed management plan with the IM team. Patient examined at bedside today. Patient coming in for evaluation of generalized weakness and fever. It was noted that patient was recently started with Bactrim, reason unknown at this time, However unsure if it is prophylactic medicine or for antibiotic purposes. Transformer Tester is Dr. Rico. 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 Lal. Takes Brukinsa, Acyclovir (prophylaxis), Lenalidoamide. Unsure why patient went into cardiogenic shock, could mediation induced, however, there may be cardiomyopathy related to chemo medicines. Patient may have 3rd degree heart block, however, will continue with Dopamine drip 7.5 for now. Lactic acidosis likely related to type A, perfusion related, decreased from 8 to ~2 with dopamine drip. Expected PCO2 to be 35-39, Delta Delta ~0.4 could have underlying NAGMA. Will maintain SBP above 90 with dopamine drip. Will order repeat Echo, cardiology consulted. Pt remains to have 50 cc/hr UOP, however patient may need hemodialysis if patient becomes anuric. Pt given hyperkalemic cocktail. Given patient additional insulin for hyperglycemia, resumed home long acting Tresiba, and also ordered step III sliding scale. Ordered FeUrea and Cr, shows 36.2 -> Intrinsic Renal Disease. Pt could have ATN likely related to shock. Continue with serial renal panels and Lactate. Repeat hematology and chemistry in AM. Morning ABG ordered. Will perform Vexus scan and NICOM. #Cardiogenic Shock #? 3rd degree heart block #CHF Exacerbation #NSTEMI type II, likaly related to demand ischemia #CAP #Tachypnea 2/2 respiratory alkalosis #Hyperbilirubinemia #Acute renal failure #Hx of CKD #? 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 He states that he had some nausea and vomiting and was unable to keep the food that he ate yesterday down. He reports having some small amounts of diarrhea, and night sweats. he states that his feeling of weakness is what prompted him to come to the ED with his daughter in law. MEDS: apap 325, amlodipine 5 mg, asa 81, allopurinol 300mg qd, acyclovir, atorvastatin 40, folic acid 1mg , glipizide 10 mg , degludec 36 units qam, lenalidomide 10 mg, multivitamin , pantoprazole 40 mg, bactrim 800-160 three times a week, Zanubrutinib 320mg qd ED Course: patient was hypotensive, started on dopamine drip, cards was consulted, louis, labs notable for trop 0.3, hgb 12.4, wbc 10.4 (patient takes filgastram), d dimer 2020, hco3 17, Cr 4.4 with baseline 2.4, Lactic acid 8 downtrended to 2.4, uric acid 4.6, Phos wnl, mag 1.4, T miri 1.4, D miri 0.6, uncongugated miri 0.8, BNP 738,, UA with proteinuria, and glucosuria, otherwise bland, utox negative, Betahydroxybuyrate 0.9. Tx given solumedrol 125, nitroglycerine was started, 5 gm magnesium, 40 IV lasix, 2 iv morphine, ceftriaxone and azythromycin. Exam Vital Signs Temp Pulse Resp BP Pulse Ox O2 Del Method O2 Flow Rate 98.7 F 62 29 H 141/46 H 95 Oxy Mask 15 11/13/25 10:05 11/13/25 10:55 11/13/25 10:34 11/13/25 10:55 11/13/25 10:34 11/13/25 10:05 11/13/25 10:14 FiO2 60 12/21/25 10:34 Narrative Exam GENERAL: no acute distress, AAO x3, comfortably laying in bed HEENT: Head AT/ NC. Mucous membranes moist. PERRL. NECK: Supple, no lymphadenopathy, no carotid bruits. CARDIOVASCULAR: RRR. Normal S1/S2, No m/r/g. trace edema bilaterally . RESPIRATORY: decreased breath sounds on the R mid lung aceves and, right mid to low lung aceves with crackles. no wheezing noted on exam , on bipap during exam satting well GASTROINTESTINAL: Abdomen soft, non tender no palpable masses. Bowel sounds present MUSCULOSKELETAL:? No cyanosis or edema, no visible joint swelling. NEUROLOGICAL: CN II-XII grossly intact. No focal deficits. Sensation intact, symmetric. PSYCHIATRIC: Awake and alert, not agitated, normal mood and affect. SKIN: No obvious rashes, no jaundice, normal turgor. Lines R radial A line , PIV, fuller catheter, Results: Labs 11/14/25 05:41 11/14/25 09:04 Labs: Short CBC 11/13/25 Range/Units 10:05 WBC 10.4 (3.8-10.6) Thou/mm3 Hgb 12.4 L (13.5-16.0) g/dL Hct 36.8 L (41.0-53.0) % Plt Count 104 L D (140-440) Thou/mm3 BMP 11/13/25 10:05 Sodium 139 Potassium 4.8 Chloride 103 Carbon Dioxide 17.2 L BUN 32 H Creatinine 4.1 H* Glucose 281 H Calcium 8.9 Cardiac Enzymes 11/13/25 Range/Units 10:05 Troponin I 0.319 H* (0.0-0.045) ng/mL Liver Function 11/13/25 Range/Units 10:05 Total Bilirubin 1.4 H (0.3-1.2) mg/dL Direct Bilirubin 0.6 H (0.0-0.3) mg/dL AST 33 (0-34) U/L ALT 37 (10-49) U/L Alkaline Phosphatase 85 (46-116) U/L Albumin 4.5 (3.4-4.8) gm/dL ABG Interpretation ABG results: 11/13/25 10:10 ABG pH 7.41 ABG pCO2 25 L ABG pO2 53 L* ABG HCO3 16 L ABG O2 Saturation 88 L ABG Base Excess -7 L Quality Measures Quality Measures VTE prophylaxis Advance care planning discussed with:: patient Medications Home Medications and Allergies Home Medications ?Medication ?Instructions ?Recorded ?Confirmed ?Type acyclovir 400 mg tablet 400 mg PO BID 11/14/2211/13 History allopurinol 300 mg tablet 300 mg PO QDAY 11/14/2210/25 History atorvastatin 40 mg tablet (Lipitor) 40 mg PO .QHS 10/2511/13/25 History folic acid 1 mg tablet 1 mg PO QDAY 11/14/22 History glipizide 10 mg tablet 10 mg PO BIDAC 11/14/2210/25 History pantoprazole 40 mg tablet,delayed 40 mg PO QDAY 11/13/25 History release (Protonix) pen needle, diabetic 32 gauge x 11/14/22 11/13/25 His tory (BD Ultra-Fine Jenny Pen Needle) sennosides 8.6 mg capsule (senna) 8.6 mg PO PRN PRN Co nstipation 11/14/22 11/13/25 History enalapril maleate 10 mg tablet 10 mg PO BID 09/29/23 1 01/14/25 History (Vasotec) amlodipine 10 mg tablet 10 mg PO QDAY 11/13/2511/13 History benazepril 5 mg tablet 5 mg PO QDAY 11/13/25 History calcitriol 0.25 mcg capsule 0.25 mcg PO QDAY 11/13/25 11/13/25 History cholecalciferol (vitamin D3) 10 10 mcg PO QDAY 5 11/13/25 History mcg (400 unit) tablet (Vitamin D3) filgrastim-sndz 300 mcg/0.5 mL 300 mcg .Route .COMPLEX 11/13/25 11/13/25 History injection syringe (Zarxio) insulin degludec 100 unit/mL (3 24 unit subcut QAM 11/13/25 History mL) subcutaneous pen (Tresiba FlexTouch U-100 insulin) lenalidomide 10 mg capsule 10 mg PO .COMPLEX 11/13/25 11/13/25 History (Revlimid) multivitamin (Daily Multi-Vitamin 1 tab PO QDAY 11/13/25 History tablet) sulfamethoxazole 800 1 tab PO .3x a week 11/13/25 11/13/25 History mg-trimethoprim 160 mg tablet zanubrutinib 160 mg tablet 320 mg PO QDAY 11/13/25 History (Brukinsa) Allergies Allergy/AdvReac Type Severity Reaction Status Date / Time No Known Allergies Allergy Verified 11/13/25 10:11 Visit Medications Dopamine HCl/Dextrose (Intropin In D5w Ivpb) 400 mg in 250 mls @ 15.309 mls/hr IV .[id number] ANG; Protocol Stop: 12/13/25 10:06 Last Titration: 11/13/25 10:55 Dose: 11 mcg/kg/min, 33.679 mls/hr Magnesium Sulfate (Magnesium Sulfate Ivpb) 4 gm in 50 mls @ 12.5 mls/hr IV X1 ONE Stop: 11/13/25 15:20 Ceftriaxone Sodium/Dextrose (Rocephin/D5w 1gm Iv Premix) 1 gm in 50 mls @ 100 mls/hr IV QDAY ANG Stop: 11/21/25 08:59 Azithromycin 500 mg/ Sodium (Chloride) 250 mls @ 250 mls/hr IV QDAY ANG Stop: 11/21/25 08:59 Ondansetron HCl (Ondansetron Inj 2 Mg/Ml Inj 2 Ml) 4 mg IVP Q6H PRN; Protocol PRN Reason: NAUSEA OR VOMITING Stop: 12/13/25 12:03 Discontinued Medications Albuterol/Ipratropium (Albuterol/Ipratropium (Duoneb) Rt Mariela 3 Ml Nebu) 3 ml INH X1 ONE Stop: 11/13/25 09:51 Last Admin: 11/13/25 10:13 Dose: 3 ml Furosemide (Furosemide Inj 10 Mg/Ml 4ml Vial) 40 mg IVP X1 ONE Stop: 11/13/25 11:32 Ceftriaxone Sodium/Dextrose (Rocephin/D5w 1gm Iv Premix) 1 gm in 50 mls @ 100 mls/hr IV X1 ONE Stop: 11/13/25 11:31 Azithromycin 500 mg/ Sodium (Chloride) 250 mls @ 250 mls/hr IV X1 ONE Stop: 11/13/25 12:01 Magnesium Sulfate (Magnesium Sulfate Ivpb) 2 gm in 50 mls @ 25 mls/hr IV X1 ONE Stop: 11/13/25 13:18 Methylprednisolone Sodium Succinate (Methylprednisolone Sod Succ 62.5 Mg/Ml 2ml Vial) 125 mg IVP X1 ONE Stop: 11/13/25 09:51 Last Admin: 11/13/25 10:10 Dose: 125 mg Morphine Sulfate (Morphine Sulf Inj 4 Mg/Ml Vial) 2 mg IV X1 ONE Stop: 11/13/25 11:32 Nitroglycerin (Nitroglycerin Oint 2% 1 Inch Packet) 1 inch TOP X1 ONE Stop: 11/13/25 11:32 Assessment & Plan Plan Mr Melendrez is a 75 year old gentleman with a history of diffuse large B-cell lymphoma status postchemotherapy 2017 in remission, status postcraniotomy 2021, hypertension, hyperlipidemia, type 2 diabetes insulin-dependent who presented with hypotension, who was admitted to the ICU for cardiogenic shock, on dopamine drip. Neuro No active problems CV Shock Ddx Cardiogenic shock Dx not fluid responsive on nicom. patient perfusion is improved with the dopamine, lactic acid downtrending, Consider cardiogenic toxic meds, ie BTK inhibitors are associated with a >4-fold increase in AF and other arrhythmias when compared with patients not exposed to BTK inhibitor therapy, with some unique cardiotoxic mechanisms, patient takes zanubrutinib, for his lymphoma maintenance. Rx dopamine drip (goal maintain sbp > 90) will continue to monitor perfusion status with regular capillary refill checks, if > 3 sec, notify . Pulm Acute hypoxic Resporatory Failure 2/2 Pneumonia Ddx CAP Dx patient may not be able to mount a big immune response given his hx of lymphoma his wbc 10 (he takes filgastrim injections every week), Rx Azithro 500 for 3 day course IV (11/13- ) Cefriaxone 1 gm 5 day course ( 11/13- ) Rxx GI Nausea and vomiting - Zofran PRN No active problems Renal Metabolic Acidosis Lactic Acidosis Mildly elevated Betahydroxybutrate Ddx lactic acidosis in setting of cardiogenic shock Dx Lactic 8 on admission, downtrending to 2.4, bhb 0.9 and he did not take his insulin this morning. Consider saturnino tinoco, Abg on admission with pco2 25 and bicarb 19, Rx treat underlying infection, on dopamine drip for cardiogenic shock, GRADY on CKD stage IV Oliguria Ddx: prerenal vs intrarenal Dx: Cr 4.4 from baseline 2.4. suspect in setting of cardiogenic shock and poor perfusion. his urine output is 50cc/hr and fuller catheter is in place. despite lasix 40 given in the ed. Nephrology consulted, Trisha, follows outpatient, consider intrarenal given patient takes protonix, allopurinol, and was on a chronic course of bactrim. Rx: fluid restriction, received 40 lasix x1 in the ED, and treat cardiogenic shock. Avoid nephrotoxic agents, strict ins and outs, fuller cath placed. Rxx: if renal fxn worsens and decreased urine function consider HD. ENDO Insulin dependent Type 2 DM- well controlled Hyperglycemia Glucosuria Dx A1c 5.7, glucosuria 2/2 ckd, Rx Insulin SSI step 3, Q6hr blood sugar checks, restart degludec 1/2 his home dose of 36 at 18 units q hs . gave 10 units regular insulin for hyperglycemia 400s, and sliding scale on top. Rxx Consider insulin drip if refractory to short acting vs regular insulin. HEME/ONC Diffuse B cell Lymphoma in remission Home meds: allopurinol 300mg qd (to prevent tumor lysis), acyclovir 400 (to prevent for CMV), lenalidomide 10 mg, Zanubrutinib 320mg qd Rx: monitor renal panel for signs of tumor lysis syndrome, ie elevated K and phos and mag, and elevated uric acid. MSK No active problems. Dispo:Admitted to ICU for cardiogenic shock, on dopamine drip with goal sbp>90. Diet: cardiac diet, with fluid restriction 1000 Lines: R a line, fuller catheter VTE ppx: heparin 5000 q12 GI ppx: famotidine 20 bid, Bowel Reg: holding for diarrhea Code status: FULL Case disclosed with my senior resident Dr. Wang and my Attending Dr. Kathrin Crawford MD PGY1 Attending Provider Attestation/Addendum Patient seen and examined with above resident, Sarita Crawford MD. I agree with the findings, assessment, and plan of care as document except for any differences below. Patient seen in emergency department, notably in cardiogenic shock with bradycardia arrhythmia. Cardiology also assessed the patient at the same time. In agreement that this is likely related to electro abnormalities in the setting of acute kidney injury. Chest imaging suggestive of potential pneumonia though favor development of pulmonary edema. Patient placed on BiPAP appropriately for ventilatory support and oxygenation. With initiation of dopamine patient was placed on high dose, this was titrated back down to ensure adequate beta agonism without stimulating alpha receptors and leading to increased afterload. Patient was given Lasix by emergency department with brisk urine output over the first 2 hours. Patient with significant acute kidney injury likely in setting of shock, and expect LFTs to be elevated tomorrow in the setting of shock/ischemic hepatitis. Patient given antibiotic dosing x 1 now. Will reassess need for continued antibiotic course based on clinical status. I favor elevation in lactate due to poor perfusion from cardiac dysfunction not related to distributive shock. Will remain fluid conservative at this point. Notably after arterial line placement there is no pulse pressure variation suggest the patient will not be responsive to volume along with confirmatory minutes of cardiac output by bioimpedance testing using the [place]et[place]. Fuller is in place continue to monitor output along with his mentation. Capillary refill is normal now. Repeat lactic acidosis as drop down to 2. No need to target MAP at this point. Systolic blood pressure above 90 along with clinical signs of adequate perfusion will remain getting light overnight. Patient and family were updated on plan of care at bedside. Total critical care time: Personally spent 50 minutes for review of physiologic parameters, directing plan of care for today, coordination of care with other specialist, and counseling the patient and his family at bedside. This is exclusive of time spent teaching on staff performing a separate billable procedures. Patient required critical care services for cardiogenic shock, acute kidney injury failure, hyperkalemia, acute hypoxic respiratory failure, and community-acquired pneumonia. Patient remains at significant risk for further morbidity and mortality warranting care only available in the ICU.
[2025-11-13] MEDS: Magnesium Sulfate 4 GM Ivpb 4 GM/50 ML BAG IV (12:21)
[2025-11-13] MEDS: AZITHROMYCIN INJ 500 MG in SODIUM CHLORIDE 0.9% 250 ML 250 ML 250 MG IV (12:23)
[2025-11-13 12:43] LABS: Collection Type, Urine Clean Catch
[2025-11-13 12:52] LABS: Phosphorous 3.8 mg/dL (2.4-5.1); Uric Acid 4.6 mg/dL (3.7-9.2)
--- NOTE | 2025-11-13 12:54 | ESCONSULT_ITS ---
<Statement entered by Herber Álvarez MD - 11/14/25 08:22> Patient was seen and examined by me personally. I have reviewed the below documentation by the team resident and agree with its findings. Mr. Melendrez is a 75-year-old male with past medical history of large B-cell lymphoma status postchemotherapy 2018 currently on IVIG treatments at [facility] follows Dr. Lal, lymphoma of brain status post craniotomy 2021, hypertension, hyperlipidemia, insulin-dependent type 2 diabetes mellitus and TIA who presented to [facility] emergency department with a chief complaint of malaise and weakness, patient has been receiving IVIG at [facility], last treatment was on November 02: Patient has been having flulike symptoms since November 10, using acetaminophen for the same, eventually last night patient had episodes of nausea and vomiting with some diarrhea and night sweats: Was seen by [id number] noted to have SpO2 ~80s and heart rate in 30s when she called the EMS. EKG in ER shows complete heart block, dissociation between P waves and QRS noted, rate 26 bradycardic, atrial rate faster than ventricular rate. Patient was placed on pads and started on dopamine gtt. electrolytes revealed severe acute kidney injury on CKD with creatinine 4.1, magnesium 1.4. MAP greater than 65 at bedside on dopamine gtt. Underlying etiology of patient's shock likely cardiogenic versus distributive vs less likely hypovolemic, patient started on IV antibiotics suspicion of pneumonia, Pro-Bruce 4.62, nephrology consulted. Patient's underlying conduction disturbance thought to be secondary to acute kidney injury, is on Bactrim prophylaxis versus prerenal, management of GRADY per nephrology/critical care team. Patient does have underlying CKD, follows nephrology outpatient. Continue dopamine gtt., treat underlying infection and electrolyte abnormalities, place pads, continue monitoring closely. Will follow echocardiogram results. Previous echo showed EF 55 to 60% mild LVH from September 2023. Thank you for the consult and allowing to participate in the care of the patient. Cardiology will continue to follow. Case discussed with Attending Physician Dr. Lino Álvarez MD Internal Medicine PGY-2 Disclaimer: This note was dictated by speech recognition. Minor errors in transit clerk may be present due to voice recognition software. HPI Data of Consult Requesting Physician: Jack Pinon MD Admitting Provider: Jack Pinon MD Attending Provider: Jack Pinon MD Primary Care Provider: Chivo Julio MD Consult Narrative History of present illness: History of Present Illness: Mr Geremias Melendrez is 75yM with PMH of diffuse large B-cell lymphoma status postchemotherapy 2017 in remission, status postcraniotomy 2021, hypertension, hyperlipidemia, type 2 diabetes insulin-dependent, presented to the ED on 11/13/2025 due to progressive malaise and generalized weakness. According to the patient, he developed flu like symptoms on friday (11/11), including myalgias and low grade fever. He took tylenol at home with minimal relief. His symptoms subsequently progressed to include nausea, muntiple episodes of vomiting, and several episodes of diarrhea. He also reports an episode of hypoxia at home during which is O2sat dropped to 79% and HR 70s. Patient received IVIG at [facility] last week friday. 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 In the ED, patient's HI dropped to 27, RR 29, and BP dropped to 77/45 and Oxymask of 15L to maintain 90%O2 sat. Patient was admitted to ICU for possibility of cardiogenic shock and Cardiology consulted complete AV block. In ED: Vitals: Temp: 98.7F, HI:27, RR:14, BP:122/41, O2sat 90% on Oxymask 15L Labs: WBC: 4.1, Hgb:10.6, Hct:30.8, Plt: 82, D-Dimer: 2020, ABG pH: 7.41, ABG pCO2: 25, A, BUN: 32, Cr: 4.1, eGFR:15, Glucose 281, Lactic acid: 8.2, Troponin 0.319, CRP: 6.8, BNP: 738, Procal: 4.62 CXR: Significant right lung pneumonia, Mild associated heart failure In ED, patient received Duoneb 3ml INH x1, Dopamine drip, IV Methylprednisolone 125 mg x1, Medical history: As stated above Surgical history: Craniotomy in 2021 at [facility] Allergies: NKDA Medications: apap 325, amlodipine 5 mg, asa 81, allopurinol 300mg qd, acyclovir, atorvastatin 40, folic acid 1mg , glipizide 10 mg , degludec 36 units qam, lenalidomide 10 mg, multivitamin , pantoprazole 40 mg, bactrim 800-160 three times a week, Zanubrutinib 320mg qd Family history: Noncontributory Social history: Denies smoking cigarettes, drinking alcohol or using other illicit drugs, 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 Patient has symptomatic bradycardia with EKG showing complete heart block. In the ED, patient's HI dropped to 27, RR 29, and BP dropped to 77/45 and Oxymask of 15L to maintain 90%O2 sat. Received dopamin drip in ED. Current BP is 110/52, HI:88. Pt has underlying metabolite imbalance, including hypomagnesemia. Correct electrolyte abnormalities. Ordered repeat EKG, and keep pads on patient, continue to monitor rhythm. ECHO is taken pending read. cc:: cc: Jack Pinon MD Review of Systems Review of Systems Narrative Review of Systems: All 12 systems assessed and the patient denies unless otherwise stated in HPI Exam Vital Signs Temp Pulse Resp BP Pulse Ox O2 Del Method O2 Flow Rate 98.7 F 74 24 H 90/34 L 98 Oxy Mask 15 11/13/25 10:05 11/13/25 12:40 11/13/25 12:40 11/13/25 12:40 11/13/25 12:40 11/13/25 10:05 11/13/25 10:14 FiO2 60 11/13/25 10:34 Narrative Exam General: No acute distress, well nourished, AAO x3 Eye: PERRL, EOMI, normal conjunctiva, no scleral icterus HENT: Normocephalic, atraumatic, hearing intact to conversation at normal volume, moist oral mucosa Neck: Supple, non-tender, no JVD, no lymphadenopathy Lungs: Non-labored respirations, symmetric chest rise, Clear to auscultate bilaterally, No wheezing, rhonchi, crackles Heart: Peripheral pulses intact bilaterally, Regular Rate and Rhythm. Abdomen: Soft, non-tender, non-distended, no palpable masses Musculoskeletal: No cyanosis or edema, No visible joint swelling Skin: Skin is warm, dry, no rashes or lesions. Psychiatric: Cooperative, appropriate mood and affect, Awake and alert, not agitated Neuro: Cranial nerves II-XII grossly intact. Sensations intact to light touch. Results Labs 11/15/25 05:13 11/15/25 05:13 Labs: Short CBC 11/13/25 Range/Units 10:05 WBC 10.4 (3.8-10.6) Thou/mm3 Hgb 12.4 L (13.5-16.0) g/dL Hct 36.8 L (41.0-53.0) % Plt Count 104 L D (140-440) Thou/mm3 BMP 11/13/25 10:05 Sodium 139 Potassium 4.8 Chloride 103 Carbon Dioxide 17.2 L BUN 32 H Creatinine 4.1 H* Glucose 281 H Calcium 8.9 Cardiac Enzymes 11/13/25 Range/Units 10:05 Troponin I 0.319 H* (0.0-0.045) ng/mL Liver Function 11/13/25 Range/Units 10:05 Total Bilirubin 1.4 H (0.3-1.2) mg/dL Direct Bilirubin 0.6 H (0.0-0.3) mg/dL AST 33 (0-34) U/L ALT 37 (10-49) U/L Alkaline Phosphatase 85 (46-116) U/L Albumin 4.5 (3.4-4.8) gm/dL ABG Interpretation ABG results: 11/13/25 10:10 ABG pH 7.41 ABG pCO2 25 L ABG pO2 53 L* ABG HCO3 16 L ABG O2 Saturation 88 L ABG Base Excess -7 L Quality Measures Quality Measures VTE prophylaxis Advance care planning discussed with:: patient and other Medications Home Medications and Allergies Home Medications ?Medication ?Instructions ?Recorded ?Confirmed ?Type acyclovir 400 mg tablet 400 mg PO BID 11/14/2211/13 History allopurinol 300 mg tablet 300 mg PO QDAY 11/14/2210/25 History atorvastatin 40 mg tablet (Lipitor) 40 mg PO .QHS 10/2511/13/25 History folic acid 1 mg tablet 1 mg PO QDAY 11/14/22 History glipizide 10 mg tablet 10 mg PO BIDAC 11/14/2210/25 History pantoprazole 40 mg tablet,delayed 40 mg PO QDAY 11/13/25 History release (Protonix) pen needle, diabetic 32 gauge x 11/14/22 11/13/25 His tory (BD Ultra-Fine Jenny Pen Needle) sennosides 8.6 mg capsule (senna) 8.6 mg PO PRN PRN Co nstipation 11/14/22 11/13/25 History enalapril maleate 10 mg tablet 10 mg PO BID 09/29/23 1 01/14/25 History (Vasotec) amlodipine 10 mg tablet 10 mg PO QDAY 11/13/2511/13 History benazepril 5 mg tablet 5 mg PO QDAY 11/13/25 History calcitriol 0.25 mcg capsule 0.25 mcg PO QDAY 11/13/25 11/13/25 History cholecalciferol (vitamin D3) 10 10 mcg PO QDAY 5 11/13/25 History mcg (400 unit) tablet (Vitamin D3) [id number] 300 mcg/0.5 mL 300 mcg .Route .COMPLEX 11/13/25 11/13/25 History injection syringe (Zarxio) insulin degludec 100 unit/mL (3 24 unit subcut QAM 11/13/25 History mL) subcutaneous pen (Tresiba FlexTouch U-100 insulin) lenalidomide 10 mg capsule 10 mg PO .COMPLEX 11/13/25 11/13/25 History (Revlimid) multivitamin (Daily Multi-Vitamin 1 tab PO QDAY 11/13/25 History tablet) sulfamethoxazole 800 1 tab PO .3x a week 11/13/25 11/13/25 History mg-trimethoprim 160 mg tablet zanubrutinib 160 mg tablet 320 mg PO QDAY 11/13/25 History (Brukinsa) Allergies Allergy/AdvReac Type Severity Reaction Status Date / Time No Known Allergies Allergy Verified 11/13/25 10:11 Visit Medications Acetaminophen (Acetaminophen 325 Mg Tablet) 650 mg PO Q6HR PRN PRN Reason: pain 1-3 or temp>100.2 Stop: 12/13/25 12:18 Famotidine (Famotidine Inj 10 Mg/Ml Vial 2 Ml) 20 mg IVP BID ANG Stop: 12/13/25 20:59 Dopamine HCl/Dextrose (Intropin In D5w Ivpb) 400 mg in 250 mls @ 15.309 mls/hr IV .[id number] [facility]; Protocol Stop: 12/13/25 10:06 Last Titration: 11/13/25 10:55 Dose: 11 mcg/kg/min, 33.679 mls/hr Magnesium Sulfate (Magnesium Sulfate Ivpb) 4 gm in 50 mls @ 12.5 mls/hr IV X1 ONE Stop: 11/13/25 15:20 Last Admin: 11/13/25 12:21 Dose: 12.5 mls/hr Ceftriaxone Sodium/Dextrose (Rocephin/D5w 1gm Iv Premix) 1 gm in 50 mls @ 100 mls/hr IV QDAY [facility] Stop: 11/21/25 08:59 Azithromycin 500 mg/ Sodium (Chloride) 250 mls @ 250 mls/hr IV QDAY [facility] Stop: 11/21/25 08:59 Ondansetron HCl (Ondansetron Inj 2 Mg/Ml Inj 2 Ml) 4 mg IVP Q6H PRN; Protocol PRN Reason: NAUSEA OR VOMITING Stop: 12/13/25 12:03 Discontinued Medications Albuterol/Ipratropium (Albuterol/Ipratropium (Duoneb) Rt Mariela 3 Ml Nebu) 3 ml INH X1 ONE Stop: 11/13/25 09:51 Last Admin: 11/13/25 10:13 Dose: 3 ml Furosemide (Furosemide Inj 10 Mg/Ml 4ml Vial) 40 mg IVP X1 ONE Stop: 11/13/25 11:32 Last Admin: 11/13/25 11:56 Dose: Not Given Ceftriaxone Sodium/Dextrose (Rocephin/D5w 1gm Iv Premix) 1 gm in 50 mls @ 100 mls/hr IV X1 ONE Stop: 11/13/25 11:31 Last Admin: 11/13/25 12:18 Dose: 100 mls/hr Azithromycin 500 mg/ Sodium (Chloride) 250 mls @ 250 mls/hr IV X1 ONE Stop: 11/13/25 12:01 Last Admin: 11/13/25 12:23 Dose: 250 mls/hr Magnesium Sulfate (Magnesium Sulfate Ivpb) 2 gm in 50 mls @ 25 mls/hr IV X1 ONE Stop: 11/13/25 13:18 Methylprednisolone Sodium Succinate (Methylprednisolone Sod Succ 62.5 Mg/Ml 2ml Vial) 125 mg IVP X1 ONE Stop: 11/13/25 09:51 Last Admin: 11/13/25 10:10 Dose: 125 mg Morphine Sulfate (Morphine Sulf Inj 4 Mg/Ml Vial) 2 mg IV X1 ONE Stop: 11/13/25 11:32 Last Admin: 11/13/25 11:56 Dose: Not Given Nitroglycerin (Nitroglycerin Oint 2% 1 Inch Packet) 1 inch TOP X1 ONE Stop: 11/13/25 11:32 Last Admin: 11/13/25 12:17 Dose: Not Given Assessment & Plan Plan Mr Geremias Melendrez is 75yM with PMH of diffuse large B-cell lymphoma status postchemotherapy 2017 in remission, status postcraniotomy 2021, hypertension, hyperlipidemia, type 2 diabetes insulin-dependent, presented to the ED on 11/13/2025 due to progressive malaise and generalized weakness. Patient was admitted to ICU for possibility of cardiogenic shock and Cardiology consulted for EKG showing complete AV block. #Symptomatic Bradycardia #Third Degree AV block - transient -Ddx: GRADY 2/2 CKD 2/2 Bactrim VS Extensive Pnuemonia -Patient has active infection -CXR showing active pneumonia. -Procal: 4.62, Lactic acid: 8.2 -Possible shock secondary to bradycardia. In the ED, patient's HI dropped to 27, RR 29, and BP dropped to 77/45 and Oxymask of 15L to maintain 90%O2 sat. -Metabolic workup showed pt has acute on CKD with Cr elevated to 4.1 -Patient was on dopamin drip in ED. Current BP is 110/52, HI:88 -Pt has underlying metabolite imbalance, including hypomagnesemia. -On EKG, HR was 26. Severe bradycardia AV dissociation on EKG. Pt has complete 3rd degree heart block on EKG with Atrial rate faster than ventricle rate. -Past ECHO (09/28/2023) showed: Normal LV size and function. Mild LVH. Estimated EF 55-60%, Normal RV size and function. Mild MAC. Trace MR. Mild AV sclerosis without stenosis. Moderate AI Trace TR. Negative bubble study. No evidence of PFO or ASD. Plan: -Patient presented with severe bradycardia with heart rate of 26 bpm with A-V dissociation on the EKG concerning for complete heart block with a narrow complex junctional escape rhythm. Possible etiology mostly secondary to the acute kidney injury with BUN in the 80s and creatinine of greater than 4 in the setting of lactic acidosis, infection as well as Bactrim. -Started the patient on dopamine drip as patient was also hypotensive and patient heart rate did improve to 88 and expect the patient to improve secondary to the reversible causes mentioned above. -No need of any urgent pacemaker unless patient is hemodynamically unstable and would continue to treat the primary cause -Correct electrolyte abnormalities, Mg>2, K>4 -Ordered repeat EKG -ECHO taken pending read -Keep pads on patient #Mild Vascular congestion-rule out CHF -CXR showed mild vascular congestion -On examination, No Lower extremity edema noted -Troponin 0.319, CRP: 6.8, BNP: 738 -Past ECHO (09/28/2023) showed: Normal LV size and function. Mild LVH. Estimated EF 55-60%, Normal RV size and function. Mild MAC. Trace MR. Mild AV sclerosis without stenosis. Moderate AI Trace TR. Negative bubble study. No evidence of PFO or ASD. -patient does not have chest pain or palpation Plan: -Continue to monitor BNP. If elevated, consider dieurisis depending on ECHO result. -ECHO taken pending read -Trend troponin -Keep pads on -Continue to monitor rhyhm -Consider resuming dopamine drip as needed. #CAP #Tachypnea 2/2 respiratory alkalosis #Hyperbilirubinemia #Acute renal failure #Hx of CKD #? 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 Geremias Melendrez. Cardiology will continue to follow Assessment and plan discussed with my attending physician Dr. Collins and Dr. Álvarez (PGY-2) Dr. Brannon (PGY-1) - Internal medicine resident There is a high probability of sudden, clinically significant or life threatening deterioration in the patient condition which required the highest level of physician preparedness to intervene urgently. I have personally spent 65 minutes of critical care time, exclusive of time spent on any procedures, in evaluation and management of this critically ill patient. Attending Provider Attestation/Addendum I have personally seen and examined the patient separately on the above date of service and discussed the plan of care with the resident. I reviewed the resident Dr. Jesus Brannon / Herber Álvarez consultation progress note and agree with the resident findings and plan in the note above and have also edited the documentation to reflect my findings and plan. Lino Collins M.D. Interventional Cardiology
[2025-11-13 13:11] LABS: Bilirubin,Urine Negative (Negative); Blood,Urine 2+ (Negative); Clarity,Urine Clear (Clear/Hazy); Color,Urine Yellow (Lt Yel-Yel); Culture Indicated,Urine Not Indicated; Glucose, Urine 3+ (Negative); Ketones,Urine Negative (Negative); Leukocyte Esterase,Urine Negative (Negative); Nitrite,Urine Negative (Negative); PH,Urine 6.0 (5.0-7.0); Protein,Urine 2+ (Neg - Trace); RBC,Urine 4 /hpf (0-3); Specific Gravity,Urine 1.020 (1.001-1.035); Squamous Epithelial Cell,Urine < 1 /hpf (0-5); Urobilinogen,Urine Negative mg/dL (0.0-1.0); WBC,Urine 3 /hpf (0-5)
[2025-11-13 13:18] LABS: Glucose Estimated Average 117 mg/dL (80-131); Hemoglobin A1C 5.7 % Hgb (4.8-6.0)
[2025-11-13 13:19] LABS: Reflex Lactate? Y
[2025-11-13 14:49] LABS: Amphetamine/Methamp Scrn,U Negative (Negative); Barbiturate Screen,Urine Negative (Negative); Benzodiazepines Screen,Urine Negative (Negative); Benzoylecgonine Screen, Ur Negative (Negative); Fentanyl Screen,Urine Negative (Negative); Opiate Screen,Urine Negative (Negative); THC Screen,Urine Negative (Negative)
[2025-11-13 15:04] LABS: Lactic Acid, 3 HR 2.4 mMol/L (0.4-2.0)
[2025-11-13 15:36] LABS: Creatinine,Random Urine 120 mg/dL (30-125); Urea Nitrogen, Random Urine 474.0 mg/dL (350.0-1000.0)
--- NOTE | 2025-11-13 15:42 | PC.NURSE ---
pt transferred upstairs by this rn w/RT and DIVISION CHIEF w/o issue connected to tele. ICU RNs at bedside to assume care.
[2025-11-13 16:10] LABS: Base Excess -4 (-3-3); HCO3 20 mEq/L (20-26); Inspired O2, VO2 Liters 4 L/min; Inspired Oxygen, FIO2 21 %; O2 Saturation 95 % (91-98); PCO2 32 mmHg (32.0-48.0); PO2 87 mmHg (83-108); pH, Arterial 7.40 (7.35-7.45)
[2025-11-13 16:12] LABS: Puncture Site Arterial Line
[2025-11-13 16:36] LABS: Albumin, Serum 4.1 gm/dL (3.4-4.8); Anion Gap 14 (7-16); BUN/Creatinine Ratio 11 Ratio (12-20); Blood Urea Nitrogen 48 mg/dL (9-23); Calcium 8.3 mg/dL (8.3-10.6); Calcium (Corrected) 8.3 mg/dL (8.5-10.1); Carbon Dioxide 19.2 mMol/L (20.0-31.0); Chloride 103 mMol/L (98-107); Creatinine (Component) 4.4 mg/dL (0.6-1.3); Estimated Creatinine Clearance 15.9 mL/min (>60); Magnesium 1.7 mg/dL (1.6-2.6); Phosphorous 2.7 mg/dL (2.4-5.1); Potassium 5.8 mMol/L (3.4-5.1); Sodium 136 mMol/L (136-145); eGFR 13 See Note
[2025-11-13 16:39] LABS: Glucose 398 mg/dL (74-106); Osmolality,Calculated 301 (275-295); Troponin I 0.304 ng/mL (0.0-0.045)
[2025-11-13] MEDS: INSULIN HUM REGULAR 1 UNIT/0.01 ML (PER UNIT) 10 UNIT IV (17:40)
[2025-11-13] MEDS: CALCIUM GLUC/NS 1000MG IVPB 1,000 MG/50 ML BAG 50 MG IV (18:08)
[2025-11-13 18:20] LABS: Albumin, Serum 4.0 gm/dL (3.4-4.8); Anion Gap 13 (7-16); BUN/Creatinine Ratio 9 Ratio (12-20); Blood Urea Nitrogen 41 mg/dL (9-23); Calcium 8.8 mg/dL (8.3-10.6); Calcium (Corrected) 8.8 mg/dL (8.5-10.1); Carbon Dioxide 20.7 mMol/L (20.0-31.0); Chloride 102 mMol/L (98-107); Creatinine (Component) 4.5 mg/dL (0.6-1.3); Estimated Creatinine Clearance 15.6 mL/min (>60); Magnesium 1.8 mg/dL (1.6-2.6); Osmolality,Calculated 301 (275-295); Phosphorous 2.9 mg/dL (2.4-5.1); Potassium 5.0 mMol/L (3.4-5.1); Sodium 136 mMol/L (136-145); eGFR 13 See Note
[2025-11-13 18:21] LABS: Glucose 434 mg/dL (74-106)
[2025-11-13] MEDS: INSULIN LISPRO (AdmeLOG) 1 UNIT/0.01 ML UNIT SC ×2 (18:44→21:19)
[2025-11-13] MEDS: INSULIN LISPRO (AdmeLOG) 1 UNIT/0.01 ML UNIT 8 UNIT SC (18:45)
[2025-11-13] MEDS: DOPamine/D5w 400 MG IVPB 400 MG/250 ML BAG 26.025 MG IV (19:31)
[2025-11-13] MEDS: ATORVASTATIN CALCIUM 20 MG TABLET 40 MG PO (20:14)
[2025-11-13] MEDS: FAMOTIDINE INJ 10 MG/ML VIAL 2 ML 20 MG IVP (20:18)
[2025-11-13 20:40] LABS: Albumin, Serum 4.1 gm/dL (3.4-4.8); Anion Gap 13 (7-16); BUN/Creatinine Ratio 11 Ratio (12-20); Blood Urea Nitrogen 50 mg/dL (9-23); Calcium 9.2 mg/dL (8.3-10.6); Calcium (Corrected) 9.2 mg/dL (8.5-10.1); Carbon Dioxide 20.5 mMol/L (20.0-31.0); Chloride 103 mMol/L (98-107); Creatine Kinase 301 U/L (34-171); Creatinine (Component) 4.4 mg/dL (0.6-1.3); Estimated Creatinine Clearance 15.9 mL/min (>60); Glucose 365 mg/dL (74-106); Magnesium 1.8 mg/dL (1.6-2.6); Osmolality,Calculated 300 (275-295); Phosphorous 2.5 mg/dL (2.4-5.1); Potassium 4.2 mMol/L (3.4-5.1); Sodium 136 mMol/L (136-145); eGFR 13 See Note
[2025-11-13] MEDS: INSULIN DEGLUDEC 5 UNIT/0.05 ML (PER 5 UNITS) 18 UNIT SC (21:17)
[2025-11-13 23:07] LABS: Lactate (Lactic Acid) 2.0 mMol/L (0.4-2.0)
[2025-11-14] VITALS (79 sets, daily range): BP systolic 83–147; BP diastolic 36–69; PULSE 53–67; RESP 13–181; TEMP 36.1–36.3; O2SAT 82–100; BMI 25.4
[2025-11-14 00:43] LABS: Sodium,Urine Random 28.1 mMol/L (20.0-110.0)
[2025-11-14 00:59] LABS: Albumin, Serum 4.2 gm/dL (3.4-4.8); Anion Gap 12 (7-16); BUN/Creatinine Ratio 11 Ratio (12-20); Blood Urea Nitrogen 45 mg/dL (9-23); Calcium 8.9 mg/dL (8.3-10.6); Calcium (Corrected) 8.9 mg/dL (8.5-10.1); Carbon Dioxide 21.7 mMol/L (20.0-31.0); Chloride 103 mMol/L (98-107); Creatinine (Component) 4.0 mg/dL (0.6-1.3); Estimated Creatinine Clearance 17.5 mL/min (>60); Glucose 275 mg/dL (74-106); Magnesium 1.8 mg/dL (1.6-2.6); Osmolality,Calculated 295 (275-295); Phosphorous 2.6 mg/dL (2.4-5.1); Potassium 4.4 mMol/L (3.4-5.1); Sodium 137 mMol/L (136-145); eGFR 15 See Note
[2025-11-14 04:30] LABS: Base Excess -2 (-3-3); HCO3 22 mEq/L (20-26); Inspired Oxygen, FIO2 21 %; PCO2 36 mmHg (32.0-48.0); PO2 148 mmHg (83-108); pH, Arterial 7.40 (7.35-7.45)
[2025-11-14 04:45] LABS: Allen Test Performed/OK; O2 Saturation 100 % (91-98); Puncture Site Arterial Line
[2025-11-14 06:01] LABS: Lactate (Lactic Acid) 0.9 mMol/L (0.4-2.0)
[2025-11-14 06:33] LABS: Basophils # (Auto) 0.0 Thou/mm3 (0.0-0.2); Basophils % (Auto) 1 % (0-2.5); Eosinophils # (Auto) 0.0 Thou/mm3 (0.0-0.5); Eosinophils % (Auto) 0 % (0-10); Hematocrit 29.6 % (41.0-53.0); Hemoglobin 10.5 g/dL (13.5-16.0); Immature Granulocytes Auto 0.32 Thou/mm3 (0.00-0.00); Lymphocytes # (Auto) 0.4 Thou/mm3 (1.0-4.8); Lymphocytes % (Auto) 8 % (10-50); Mean Corpuscular HGB Conc 35.5 g/dl (31.0-37.0); Mean Corpuscular Hemoglobin 33.0 pg (25.0-35.0); Mean Corpuscular Volume 93 fL (80-100); Monocytes # (Auto) 0.4 Thou/mm3 (0.0-0.8); Monocytes % (Auto) 9 % (0-12); Neutrophils # (Auto) 3.3 Thou/mm3 (1.8-7.7); Neutrophils % (Auto) 75 % (37-80); Nucleated Red Blood Cell # 0.00 Thou/mm3 (0.00-0.00); Nucleated Red Blood Cell % 0 /100 WBC (0); Platelet Count 91 Thou/mm3 (140-440); RDW Standard Deviation 50.6 fL (35.1-43.9); Red Blood Count 3.18 Miln/mm3 (4.50-5.90); White Blood Count 4.4 Thou/mm3 (3.8-10.6)
[2025-11-14 06:40] LABS: Alanine Aminotransferase 29 U/L (10-49); Albumin, Serum 3.8 gm/dL (3.4-4.8); Albumin/Globulin Ratio 1.8 (1.2-2.2); Alkaline Phosphatase 65 U/L (46-116); Anion Gap 13 (7-16); Aspartate Amino Transferase 29 U/L (0-34); BUN/Creatinine Ratio 13 Ratio (12-20); Bilirubin,Total 0.5 mg/dL (0.3-1.2); Blood Urea Nitrogen 52 mg/dL (9-23); Calcium 9.2 mg/dL (8.3-10.6); Calcium (Corrected) 9.4 mg/dL (8.5-10.1); Carbon Dioxide 20.3 mMol/L (20.0-31.0); Chloride 104 mMol/L (98-107); Creatinine (Component) 4.0 mg/dL (0.6-1.3); Estimated Creatinine Clearance 17.5 mL/min (>60); Globulin 2.1 gm/dL (2.3-3.5); Glucose 230 mg/dL (74-106); Magnesium 1.9 mg/dL (1.6-2.6); Osmolality,Calculated 294 (275-295); Phosphorous 3.9 mg/dL (2.4-5.1); Potassium 4.4 mMol/L (3.4-5.1); Sodium 137 mMol/L (136-145); Total Protein 5.9 gm/dL (5.7-8.2); eGFR 15 See Note
--- NOTE | 2025-11-14 07:07 | PD.NEPHCONS ---
History of Present Illness Data of Consult Consult date: 11/14/25 Requesting Physician: Jack Pinon MD Primary Care Provider: Chivo Julio MD Consult Narrative Reason for consult: GRADY History of present illness: Mr Melendrez is a 75 year old gentleman with a history of diffuse large B-cell lymphoma status postchemotherapy 2017( at [facility]-currently on acyclovir, allopurinol,zarxio, folic acid, Revlimid, Bactrim, Brukinsa, IV IG qm) status postcraniotomy 2021, hypertension, hyperlipidemia, type 2 diabetes insulin-dependent, presented to the emergency department with nausea, vomiting, malaise and weakness. Has decreased p.o. intake for the last couple of days along with diarrhea. Patient was brought by his . In the ED he was noted to be very hypotensive, heart rate in less than 30. Patient was started on dopamine drip and transferred to ICU. HOME MEDS: apap 325, amlodipine 5 mg, asa 81, allopurinol 300mg qd, acyclovir, atorvastatin 40, folic acid 1mg , glipizide 10 mg , degludec 36 units qam, lenalidomide 10 mg, multivitamin , pantoprazole 40 mg, bactrim 800-160 three times a week, Zanubrutinib 320mg qd ED Course: patient was hypotensive, started on dopamine drip, cards was consulted, louis, labs notable for trop 0.3, hgb 12.4, wbc 10.4 (patient takes filgastram), d dimer 2020, hco3 17, Cr 4.4 with baseline 2.4, Lactic acid 8 downtrended to 2.4, uric acid 4.6, Phos wnl, mag 1.4, T miri 1.4, D miri 0.6, uncongugated miri 0.8, BNP 738,, UA with proteinuria, and glucosuria, otherwise bland, utox negative, Betahydroxybuyrate 0.9. Tx given solumedrol 125, nitroglycerine was started, 5 gm magnesium, 40 IV lasix, 2 iv morphine, ceftriaxone and azythromycin. 11/14/2025 renal consultation requested for GRADY. Patient is one of my CKD patients. PCP-Dr. Julio Currently seen in ICU. On dopamine drip. Denies any chest pain, shortness of breath. Did receive 1 dose of IV Lasix. ICU team at bedside cc:: cc: Jack Pinon MD Review of Systems Review of Systems Narrative Review of Systems: CONSTITUTIONAL: Patient denies any fever, chills. Complaining of fatigue HEENT: Denies any visual disturbances or hearing problems. CARDIOVASCULAR: Patient denies any chest pain, shortness of breath, swelling in the lower extremities. PULMONARY: Patient denies any shortness of breath, cough. GASTROINTESTINAL: Patient denies any abdominal pain, constipation, nausea, vomiting, diarrhea. Decreased p.o. intake GENITOURINARY: Patient denies any urinary symptoms of burning or frequency or hematuria, denies any form in the urine. SKIN: Denies any rash. MUSCULOSKELETAL: Denies any muscular skeletal problems of joint pains. NEUROLOGICAL: Denies any neurological problems of strokes, seizures or confusion. Denies any memory problems. PSYCHIATRIC: Denies any depression or anxiety. LYMPHATICS : No lymphadenopathy Past Medical History Past Medical History NEUROLOGIC: Negative Neurological Disorders, Cerebrovascular Accident, Transient Ischemic Attacks (TIA), Dementia, Seizures or Paralysis CARDIAC: Positive Hypercholesterolemia and Hypertension; Negative Cardiac Disorders, Myocardial Infarction, Cardiac Arrhythmia, Atrial Fibrillation, Congestive Heart Failure, Edema, Cellulitis or Varicose Veins RESPIRATORY: Positive Pneumonia; Negative Chronic Obstructive Pulmonary Disease (COPD), Asthma or Bronchitis GASTROINTESTINAL: Positive Gastroesophageal Reflux Disease; Negative Gastrointestinal Disorders, Hepatitis, Gastrointestinal Bleed, Ulcer or Hemorrhoids GENITOURINARY: Positive Kidney Stones; Negative Genitourinary Disorders or Renal Disease REPRODUCTIVE: Negative Breast Cancer or Testicular Cancer MUSCULOSKELETAL: Positive Musculoskeletal Disorders, Bone Cancer, Gout and Fractures; Negative Arthritis, Osteoporosis or Fibromyalgia ENT: Positive Cataracts and Deafness; Negative Glaucoma, Blind or Ear Infection ENDOCRINE: Positive Endocrine Disorders and Diabetes Mellitus Type 2; Negative Diabetes Mellitus Type 1, Hyperthyroidism or Hypothyroidism HEMATOLOGIC: Negative Blood Disorders, Anemia, Leukemia, Hemophilia, Thalassemia, Sickle Cell Disease or Clotting Problems PSYCHO/SOCIAL: Negative Recreational Drug Use, Depression or Anxiety OTHER HISTORY: Positive Chemotherapy and Cancer; Negative Hospitalization, Autoimmune Disease, Shingles, Falls, Blood Transfusions, Anesthesia Reactions, Organ Transplant, Radiation Therapy, MRSA, Human Immunodeficiency Virus (HIV), Chicken Pox, Measles, Mumps, Rubella ([place] Measles), Pertussis, Clostridium Difficile, Breast Cancer or Testicular Cancer Family History FAMILY HISTORY: Positive Family Cardiac Disorders, Family Cancer, Family Surgery and Family Anesthesia Reaction; Negative Family Psychiatric Problems, Family Respiratory Disorders or Family Gastrointestinal Problems Surgical History SURGICAL: Negative Cardiac Surgery, Pacemaker, Endocrine Surgery, Ear Surgery, Abdominal Surgery, Nephrectomy, Joint Replacement, Neurologic Surgery or Organ Transplant Social History SMOKING STATUS: Never smoker Meds Home Medications and Allergies Home Medications ?Medication ?Instructions ?Recorded ?Confirmed ?Type acyclovir 400 mg tablet 400 mg PO BID 11/14/22 11/13/25 History allopurinol 300 mg tablet 300 mg PO QDAY 11/14/22 11/13/25 History atorvastatin 40 mg tablet (Lipitor) 40 mg PO .QHS 11/14/22 11/13/25 History folic acid 1 mg tablet 1 mg PO QDAY 11/14/22 11/13/25 History glipizide 10 mg tablet 10 mg PO BIDAC 11/14/22 11/13/25 History pantoprazole 40 mg tablet,delayed 40 mg PO QDAY 11/14/22 11/13/25 History release (Protonix) pen needle, diabetic 32 gauge x 11/14/22 11/13/25 History (BD Ultra-Fine Jenny Pen Needle) sennosides 8.6 mg capsule (senna) 8.6 mg PO PRN PRN Constipation 11/14/22 11/13/25 History enalapril maleate 10 mg tablet 10 mg PO BID 09/29/23 11/13/25 History (Vasotec) amlodipine 10 mg tablet 10 mg PO QDAY 11/13/25 11/13/25 History benazepril 5 mg tablet 5 mg PO QDAY 11/13/25 11/13/25 History calcitriol 0.25 mcg capsule 0.25 mcg PO QDAY 11/13/25 11/13/25 History cholecalciferol (vitamin D3) 10 10 mcg PO QDAY 11/13/25 11/13/25 History mcg (400 unit) tablet (Vitamin D3) filgrastim-sndz 300 mcg/0.5 mL 300 mcg .Route .COMPLEX 11/13/25 11/13/25 History injection syringe (Zarxio) insulin degludec 100 unit/mL (3 24 unit subcut QAM 11/13/25 11/13/25 History mL) subcutaneous pen (Tresiba FlexTouch U-100 insulin) lenalidomide 10 mg capsule 10 mg PO .COMPLEX 11/13/25 11/13/25 History (Revlimid) multivitamin (Daily Multi-Vitamin 1 tab PO QDAY 11/13/25 11/13/25 History tablet) sulfamethoxazole 800 1 tab PO .3x a week 11/13/25 11/13/25 History mg-trimethoprim 160 mg tablet zanubrutinib 160 mg tablet 320 mg PO QDAY 11/13/25 11/13/25 History (Brukinsa) Allergies Allergy/AdvReac Type Severity Reaction Status Date / Time No Known Allergies Allergy Verified 11/13/25 10:11 Exam Vital Signs Temp Pulse Resp BP Pulse Ox O2 Del Method O2 Flow Rate 36.2 C 61 16 123/59 L 100 BiPAP 2 11/14/25 04:00 11/14/25 06:00 11/14/25 06:00 11/14/25 06:00 11/14/25 06:00 11/14/25 04:00 11/13/25 20:00 FiO2 45 11/14/25 04:00 Narrative Exam GENERAL APPEARANCE: Patient seems to be comfortable, adequately hydrated and nourished. HEENT: EOMI, PERRLA NECK: Neck supple, no JVD or bruit CARDIOVASCULAR: Heart regular, no murmurs LUNGS/CHEST: Chest clear to auscultation. No rales, rhonchi, wheezing ABDOMEN: Soft, nontender, nondistended. No masses. Normal bowel sounds. EXTREMITIES: No edema, clubbing or cyanosis. SKIN: Skin exam normal without any rashes MUSCULOSKELETAL: Musculoskeletal exam normal PSYCHIATRIC: Normal mood, affect LYMPHATICS: No lymphadenopathy noted NEUROLOGICAL : No neurological deficits Results Labs 11/15/25 05:13 11/15/25 05:13 Labs: Short CBC 11/13/25 11/14/25 Range/Units 10:05 05:41 WBC 10.4 4.4 D (3.8-10.6) Thou/mm3 Hgb 12.4 L 10.5 L (13.5-16.0) g/dL Hct 36.8 L 29.6 L (41.0-53.0) % Plt Count 104 L D 91 L (140-440) Thou/mm3 BMP 11/13/25 11/13/25 11/13/25 10:05 14:55 17:28 Sodium 139 136 136 Potassium 4.8 5.8 H D 5.0 D Chloride 103 103 102 Carbon Dioxide 17.2 L 19.2 L 20.7 BUN 32 H 48 H 41 H Creatinine 4.1 H* 4.4 H* 4.5 H* Glucose 281 H 398 H D 434 H* Calcium 8.9 8.3 8.8 11/13/25 11/14/25 11/14/25 19:57 00:15 05:41 Sodium 136 137 137 Potassium 4.2 D 4.4 4.4 Chloride 103 103 104 Carbon Dioxide 20.5 21.7 20.3 BUN 50 H 45 H 52 H Creatinine 4.4 H* 4.0 H 4.0 H Glucose 365 H D 275 H D 230 H Calcium 9.2 8.9 9.2 Cardiac Enzymes 11/13/25 11/13/25 11/13/25 Range/Units 10:05 14:55 19:57 Total Creatine Kinase 301 H (34-171) U/L Troponin I 0.319 H* 0.304 H* (0.0-0.045) ng/mL Liver Function 11/13/25 11/13/25 11/13/25 Range/Units 10:05 14:55 17:28 Total Bilirubin 1.4 H (0.3-1.2) mg/dL Direct Bilirubin 0.6 H (0.0-0.3) mg/dL AST 33 (0-34) U/L ALT 37 (10-49) U/L Alkaline Phosphatase 85 (46-116) U/L Albumin 4.5 4.1 4.0 (3.4-4.8) gm/dL 11/13/25 11/14/25 11/14/25 Range/Units 19:57 00:15 05:41 Total Bilirubin 0.5 D (0.3-1.2) mg/dL Direct Bilirubin (0.0-0.3) mg/dL AST 29 (0-34) U/L ALT 29 (10-49) U/L Alkaline Phosphatase 65 D (46-116) U/L Albumin 4.1 4.2 3.8 (3.4-4.8) gm/dL Urine 11/13/25 Range/Units 12:18 Urine Color Yellow (Lt Yel-Yel) Urine Clarity Clear (Clear/Hazy) Urine pH 6.0 (5.0-7.0) Ur Specific [place] 1.020 (1.001-1.035) Urine Protein 2+ A (Neg - Trace) Urine Glucose (UA) 3+ A (Negative) ABG Interpretation ABG results: 11/13/25 11/13/25 11/14/25 10:10 16:04 04:22 ABG pH 7.41 7.40 7.40 ABG pCO2 25 L 32 36 ABG pO2 53 L* 87 D 148 H D ABG HCO3 16 L 20 22 ABG O2 Saturation 88 L 95 100 H ABG Base Excess -7 L -4 L -2 Assessment & Plan Assessment and plan (1) GRADY (acute kidney injury): Status: Acute Assessment and plan: GRADY on CKD stage III. Most likely related to prerenal azotemia from decreased p.o. intake versus med related. Patient also noted to have hypotension and complete heart block on admission. Question related to viral illness. Clinically patient looks rather hypovolemic. Will give gentle IV fluids today. Heart rate in 59. Hold off on all nephrotoxic medications. Underlying CKD-probably related to the chemotherapy which she received and also IVIG which she has been getting q. monthly. Did talk to [facility] leukemia specialist-Dr. Lal-will hold off on current medications for now. She will follow him as an outpatient. Renal ultrasound showed no hydronephrosis (2) Sepsis: Status: Acute Assessment and plan: Low blood pressure, low heart rate rule out sepsis. Pending cultures. On antibiotics. (3) Complete heart block: Status: Acute Assessment and plan: Probably related to a viral illness. Recovered with a dopamine drip (4) B-cell lymphoma: Status: Acute Assessment and plan: High-grade B-cell lymphoma-underwent [facility] clinical trial. Multiple medications. Mets to brain. Patient currently on Brukinsa, IVIG, Revlimid (5) Diabetes mellitus: Status: Acute Assessment and plan: 1. Check blood sugars twice daily, log them and bring them back with the next visit. 2. is blood sugars above 400 or less than 80, call M.D. 3. Stay active and physically fit 4. Comply with diet and medications 5. Low carbohydrate diet Additional Assessment & Plan Additional Plan: Care discussed with ICU team Thank you Dr. Pinon for allowing me to participate in the care of Mr. Melendrez
[2025-11-14] MEDS: cefTRIAXone/D5w 1gm IV premix 1 GM/50 ML BAG IV (08:16)
[2025-11-14] MEDS: INSULIN LISPRO (AdmeLOG) 1 UNIT/0.01 ML UNIT SC ×3 (08:17→22:00)
[2025-11-14] MEDS: INSULIN DEGLUDEC 5 UNIT/0.05 ML (PER 5 UNITS) 7 UNIT SC (08:17)
[2025-11-14] MEDS: AZITHROMYCIN INJ 500 MG in SODIUM CHLORIDE 0.9% 250 ML 250 ML 250 MG IV (08:17)
[2025-11-14] MEDS: RINGERS LACTATED 1000 ML 1,000 ML 80 ML IV (08:18)
[2025-11-14] MEDS: FAMOTIDINE INJ 10 MG/ML VIAL 2 ML 20 MG IVP ×2 (08:18→22:01)
--- NOTE | 2025-11-14 09:21 | PD.RESPROC ---
PROCEDURES: Procedure Date / Time 11/13/25 1030 Procedure Narrative Procedure Narrative: Attending Attestation: I was present for entire procedure. Patient tolerated procedure well with no immediate complications. Minimal blood loss. Line was sutured in place. Arterial Line Indication(s): frequent arterial line sampling and shock Informed consent obtained: from patient Time out done, and the following verified: correct patient, side and site, procedure, patient position and implants and/or equipment Size (Gauge): 18 Technique used: direct puncture technique Post-Procedure: line sutured into place and dry sterile dressing placed Patient tolerated procedure: well and no complications EBL(ml): 5 Complications: none Site: right and radial Procedure comment: A time-out was completed verifying correct patient, procedure, site, positioning, and special equipment if applicable. Michael?s test was performed to ensure adequate perfusion. The patient?s right wrist was prepped and draped in sterile fashion. 1%?Lidocaine was used to anesthetize the area.?A?18G [place] arterial line was introduced into the radial artery. The catheter was threaded over the guide wire and the needle was removed with appropriate pulsatile?blood return. The catheter was then sutured in place to the skin and a sterile dressing applied. Perfusion to the extremity distal to the point of catheter insertion was checked and found to be adequate. Attending was present for the entire procedure. Case disclosed with my Attending Dr. Kathrin Crawford MD PGY1
--- NOTE | 2025-11-14 09:29 | ESPR_ITS ---
<Statement entered by Ady Wang MD - 11/14/25 15:03> I have reviewed the note and agree with the resident's assessment & plan with exceptions as below. I have personally reviewed labs, imaging, home meds/prior records, examined the patient, formulated and discussed management plan with the IM team. Pt examined at bedside today. No acute overnight events. Patient weaned down to 2.5 of dopamine which would not be a cardiogenic shock dose and would just provide renal perfusion. Turned off dopamine drip and patient's MAP and heart rate maintaining. Patient's urine output remains to be 15 to 20 cc an hour at this time. Kidney function with creatinine downtrending and slightly improving however is still 4. Nephrology on consult, Dr. Rico. At this time GRADY looking like a prerenal picture despite FEUrea indicating there may be intrinsic disease. Will give patient 1 L of lactated Ringer's for improvement. Patient does appear to be clinically dry on physical exam. It is unsure if there was GRADY with multiple nephrotoxic agents including Bactrim, acyclovir, allopurinol, however it was discovered that patient is on IVIG, however this was slightly reduced recently to 25 on their last visit. Patient's blood sugars continue to improve, however will add additional 7 units of Tresiba now and will give new adjusted dose. Spoke with cardiology, no plans for pacemaker at this time as this was all likely related to GRADY and okay with downgrade at this time. Patient did have concern for pneumonia on the right side, was on ceftriaxone and azithromycin, however with repeat chest x-ray today, x-ray does look improved, patient likely does not have pneumonia at this time. Will keep azithromycin on and will discontinue ceftriaxone. Removed patient's arterial line. Patient cleared for downgrade to hospitalist team. #Cardiogenic shock, resolved #Third degree heart block, ruled out #Acute Hypoxic Respiratory Failure - improved #2/2 Pneumonia #Nausea and vomiting - resolved #GRADY on CKD stage IV- improving #Oliguria, resolved #Metabolic Acidosis - resolved #Lactic Acidosis - resolved #Mildly elevated Betahydroxybutrate- resolved #Insulin dependent Type 2 DM- well controlled #Hyperglycemia, improving #Glucosuria #Diffuse B cell Lymphoma in remission #Tumor lysis syndrome, resolved Ady Wang, PGY-2 Internal Medicine Documentation for date of: 11/14/25 Subjective Subjective Interval history: History of present illness: Mr Melendrez is a 75 year old gentleman with a history of diffuse large B-cell lymphoma status postchemotherapy 2017 in remission, status postcraniotomy 2021, hypertension, hyperlipidemia, type 2 diabetes insulin-dependent, who came to the emergency department with a chief complaint of malaise and weakness, he reports that on 11/11 he felt fluish for which he took apap. He states that he had some nausea and vomiting and was unable to keep the food that he ate yesterday down. He reports having some small amounts of diarrhea, and night sweats. he states that his feeling of weakness is what prompted him to come to the ED with his daughter in law. 11/13/2025: Patient admitted to the ICU for cardiogenic shock, Cardiology was consulted with Dr. Collins, he was initiated on dopamine drip, with goal of SBP>90, Art line was placed. Nephrology was consulted given GRADY on CKD, follows closely with [facility]rew outpatient, was seen 1 week ago and was at his baseline, but on presntation cr 4.5. 11/14/2025: Patient seen and examined at bedside. In the AM dopamine drip was discontinued given his good perfusion and maintained sbp, Nephrology assessed patient and recommended 1 bag LR given concern for prerenal etiology of GRADY, he continues to make urine 25-50cc, and fluid restriction was removed, Cr downtrending to 3.8 will reasess post 1 bag of LR. CXR shows decreased vascular congestion (patient recieved x1 lasix in the ED), and R sided PNA, on exam he has ronchi more notable in the R lung aceves. Exam Vital Signs Temp Pulse Resp BP Pulse Ox O2 Del Method O2 Flow Rate 97.2 F 58 L 18 123/59 L 100 BiPAP 2 11/14/25 04:00 11/14/25 07:20 11/14/25 07:20 11/14/25 06:00 11/14/25 07:20 11/14/25 04:00 11/13/25 20:00 FiO2 45 11/14/25 07:20 Narrative Exam GENERAL: no acute distress, AAO x3, comfortably laying in bed HEENT: Head AT/ NC. Mucous membranes moist. PERRL. NECK: Supple, no lymphadenopathy, no carotid bruits. CARDIOVASCULAR: RRR. Normal S1/S2, No m/r/g. trace edema bilaterally . RESPIRATORY: decreased breath sounds on the R mid lung aceves and, right mid to low lung aceves with coarse ronchi, intermittent coughing. satting well on NC. GASTROINTESTINAL: Abdomen soft, non tender no palpable masses. Bowel sounds present MUSCULOSKELETAL:? No cyanosis or edema, no visible joint swelling. NEUROLOGICAL: CN II-XII grossly intact. No focal deficits. Sensation intact, symmetric. PSYCHIATRIC: Awake and alert, not agitated, normal mood and affect. SKIN: No obvious rashes, no jaundice, normal turgor. Lines R radial A line , PIV, fuller catheter, Objective Labs 11/16/25 04:53 11/16/25 04:53 Labs: Laboratory Results - last 24 hr 11/13/25 11/13/25 11/13/25 10:05 10:10 10:14 WBC 10.4 RBC 3.84 L Hgb 12.4 L Hct 36.8 L MCV 96 MCH 32.3 MCHC 33.7 RDW Std Deviation 53.5 H Plt Count 104 L D Neut % (Auto) 76 Lymph % (Auto) 11 [place] % (Auto) 9 Eos % (Auto) 0 Baso % (Auto) 1 Neut # (Auto) 7.9 H Lymph # (Auto) 1.1 [place] # (Auto) 0.9 H Eos # (Auto) 0.0 Baso # (Auto) 0.1 Immature Gran # (Auto) 0.36 H Absolute Nucleated RBC 0.00 Immature Gran % 4 H Nucleated RBC % 0 ESR 3 D-Dimer 2020 H Puncture Site Right Radial ABG pH 7.41 ABG pCO2 25 L ABG pO2 53 L* ABG HCO3 16 L ABG O2 Saturation 88 L ABG Base Excess -7 L Oxygen Liter Flow 15 FiO2 21 Sodium 139 Potassium 4.8 Chloride 103 Carbon Dioxide 17.2 L Anion Gap 19 H BUN 32 H Creatinine 4.1 H* Estim Creat Clear Calc 17.1 L eGFR 15 L BUN/Creatinine Ratio 8 L Glucose [address] Glu mg/dL 117 Hemoglobin A1c 5.7 Calculated Osmolality 294 Lactic Acid 8.2 H* Uric Acid 4.6 Calcium 8.9 Corrected Calcium 8.9 Phosphorus 3.8 Magnesium 1.4 L Total Bilirubin 1.4 H Direct Bilirubin 0.6 H AST 33 ALT 37 Alkaline Phosphatase 85 Ammonia < 10 L Total Creatine Kinase Troponin I 0.319 H* C-Reactive Prot, Quant 6.8 H B-Natriuretic Peptide 738 H* Total Protein 6.3 Albumin 4.5 Globulin 1.8 L Albumin/Globulin Ratio 2.5 H Amylase 48 Lipase 24 Beta-Hydroxybutyrate/Acetoacetate 0.9 H Procalcitonin 4.62 H TSH 1.92 Ur Collection Type Urine Color Urine Clarity Urine pH Ur Specific [place] Urine Protein Urine Glucose (UA) Urine Ketones Urine Blood Urine Nitrite Urine Bilirubin Urine Urobilinogen (Auto) Ur Leukocyte Esterase Urine RBC Urine WBC Ur Squamous Epith Cells Urine Bacteria Ur Culture Indicated? Ur Random Creatinine Ur Random Sodium Ur Random Urea Nitrogn Urine Opiates Screen Urine Fentanyl Screen Ur Barbiturates Screen U Amphetamin/Meth Scrn U Benzodiazepines Scrn U Cocaine Metab Screen U Marijuana (THC) Screen Ethyl Alcohol < 3.0 11/13/25 11/13/25 11/13/25 12:10 12:18 14:55 WBC RBC Hgb Hct MCV MCH MCHC RDW Std Deviation Plt Count Neut % (Auto) Lymph % (Auto) [place] % (Auto) Eos % (Auto) Baso % (Auto) Neut # (Auto) Lymph # (Auto) [place] # (Auto) Eos # (Auto) Baso # (Auto) Immature Gran # (Auto) Absolute Nucleated RBC Immature Gran % Nucleated RBC % ESR D-Dimer Puncture Site ABG pH ABG pCO2 ABG pO2 ABG HCO3 ABG O2 Saturation ABG Base Excess Oxygen Liter Flow FiO2 Sodium 136 Potassium 5.8 H D Chloride 103 Carbon Dioxide 19.2 L Anion Gap 14 BUN 48 H Creatinine 4.4 H* Estim Creat Clear Calc 15.9 L eGFR 13 L* BUN/Creatinine Ratio 11 L Glucose [address] Glu mg/dL Hemoglobin A1c Calculated Osmolality 301 H Lactic Acid 2.4 H Uric Acid Calcium 8.3 Corrected Calcium 8.3 L Phosphorus 2.7 Magnesium 1.7 Total Bilirubin Direct Bilirubin AST ALT Alkaline Phosphatase Ammonia Total Creatine Kinase Troponin I 0.304 H* C-Reactive Prot, Quant B-Natriuretic Peptide Total Protein Albumin 4.1 Globulin Albumin/Globulin Ratio Amylase Lipase Beta-Hydroxybutyrate/Acetoacetate Procalcitonin TSH Ur Collection Type Clean Catch Urine Color Yellow Urine Clarity Clear Urine pH 6.0 Ur Specific [place] 1.020 Urine Protein 2+ A Urine Glucose (UA) 3+ A Urine Ketones Negative Urine Blood 2+ A Urine Nitrite Negative Urine Bilirubin Negative Urine Urobilinogen (Auto) Negative Ur Leukocyte Esterase Negative Urine RBC 4 H Urine WBC 3 Ur Squamous Epith Cells < 1 Urine Bacteria None Ur Culture Indicated? Not Indicated Ur Random Creatinine 120 Ur Random Sodium Ur Random Urea Nitrogn 474.0 Urine Opiates Screen Negative Urine Fentanyl Screen Negative Ur Barbiturates Screen Negative U Amphetamin/Meth Scrn Negative U Benzodiazepines Scrn Negative U Cocaine Metab Screen Negative U Marijuana (THC) Screen Negative Ethyl Alcohol 11/13/25 11/13/25 11/13/25 16:04 17:28 19:57 WBC RBC Hgb Hct MCV MCH MCHC RDW Std Deviation Plt Count Neut % (Auto) Lymph % (Auto) [place] % (Auto) Eos % (Auto) Baso % (Auto) Neut # (Auto) Lymph # (Auto) [place] # (Auto) Eos # (Auto) Baso # (Auto) Immature Gran # (Auto) Absolute Nucleated RBC Immature Gran % Nucleated RBC % ESR D-Dimer Puncture Site Arterial Line ABG pH 7.40 ABG pCO2 32 ABG pO2 87 D ABG HCO3 20 ABG O2 Saturation 95 ABG Base Excess -4 L Oxygen Liter Flow 4 FiO2 21 Sodium 136 136 Potassium 5.0 D 4.2 D Chloride 102 103 Carbon Dioxide 20.7 20.5 Anion Gap 13 13 BUN 41 H 50 H Creatinine 4.5 H* 4.4 H* Estim Creat Clear Calc 15.6 L 15.9 L eGFR 13 L* 13 L* BUN/Creatinine Ratio 9 L 11 L Glucose 434 H* [address] Glu mg/dL Hemoglobin A1c Calculated Osmolality 301 H 300 H Lactic Acid Uric Acid Calcium 8.8 9.2 Corrected Calcium 8.8 9.2 Phosphorus 2.9 2.5 Magnesium 1.8 1.8 Total Bilirubin Direct Bilirubin AST ALT Alkaline Phosphatase Ammonia Total Creatine Kinase 301 H Troponin I C-Reactive Prot, Quant B-Natriuretic Peptide Total Protein Albumin 4.0 4.1 Globulin Albumin/Globulin Ratio Amylase Lipase Beta-Hydroxybutyrate/Acetoacetate Procalcitonin TSH Ur Collection Type Urine Color Urine Clarity Urine pH Ur Specific [place] Urine Protein Urine Glucose (UA) Urine Ketones Urine Blood Urine Nitrite Urine Bilirubin Urine Urobilinogen (Auto) Ur Leukocyte Esterase Urine RBC Urine WBC Ur Squamous Epith Cells Urine Bacteria Ur Culture Indicated? Ur Random Creatinine Ur Random Sodium Ur Random Urea Nitrogn Urine Opiates Screen Urine Fentanyl Screen Ur Barbiturates Screen U Amphetamin/Meth Scrn U Benzodiazepines Scrn U Cocaine Metab Screen U Marijuana (THC) Screen Ethyl Alcohol 11/13/25 11/13/25 11/14/25 21:00 22:50 00:15 WBC RBC Hgb Hct MCV MCH MCHC RDW Std Deviation Plt Count Neut % (Auto) Lymph % (Auto) [place] % (Auto) Eos % (Auto) Baso % (Auto) Neut # (Auto) Lymph # (Auto) [place] # (Auto) Eos # (Auto) Baso # (Auto) Immature Gran # (Auto) Absolute Nucleated RBC Immature Gran % Nucleated RBC % ESR D-Dimer Puncture Site ABG pH ABG pCO2 ABG pO2 ABG HCO3 ABG O2 Saturation ABG Base Excess Oxygen Liter Flow FiO2 Sodium 137 Potassium 4.4 Chloride 103 Carbon Dioxide 21.7 Anion Gap 12 BUN 45 H Creatinine 4.0 H Estim Creat Clear Calc 17.5 L eGFR 15 L BUN/Creatinine Ratio 11 L Glucose [address] Glu mg/dL Hemoglobin A1c Calculated Osmolality 295 Lactic Acid 2.0 Uric Acid Calcium 8.9 Corrected Calcium 8.9 Phosphorus 2.6 Magnesium 1.8 Total Bilirubin Direct Bilirubin AST ALT Alkaline Phosphatase Ammonia Total Creatine Kinase Troponin I C-Reactive Prot, Quant B-Natriuretic Peptide Total Protein Albumin 4.2 Globulin Albumin/Globulin Ratio Amylase Lipase Beta-Hydroxybutyrate/Acetoacetate Procalcitonin TSH Ur Collection Type Urine Color Urine Clarity Urine pH Ur Specific [place] Urine Protein Urine Glucose (UA) Urine Ketones Urine Blood Urine Nitrite Urine Bilirubin Urine Urobilinogen (Auto) Ur Leukocyte Esterase Urine RBC Urine WBC Ur Squamous Epith Cells Urine Bacteria Ur Culture Indicated? Ur Random Creatinine Ur Random Sodium 28.1 Ur Random Urea Nitrogn Urine Opiates Screen Urine Fentanyl Screen Ur Barbiturates Screen U Amphetamin/Meth Scrn U Benzodiazepines Scrn U Cocaine Metab Screen U Marijuana (THC) Screen Ethyl Alcohol 11/14/25 11/14/25 04:22 05:41 WBC 4.4 D RBC 3.18 L Hgb 10.5 L Hct 29.6 L MCV 93 MCH 33.0 MCHC 35.5 RDW Std Deviation 50.6 H Plt Count 91 L Neut % (Auto) 75 Lymph % (Auto) 8 L [place] % (Auto) 9 Eos % (Auto) 0 Baso % (Auto) 1 Neut # (Auto) 3.3 Lymph # (Auto) 0.4 L [place] # (Auto) 0.4 Eos # (Auto) 0.0 Baso # (Auto) 0.0 Immature Gran # (Auto) 0.32 H Absolute Nucleated RBC 0.00 Immature Gran % 7 H Nucleated RBC % 0 ESR D-Dimer Puncture Site Arterial Line ABG pH 7.40 ABG pCO2 36 ABG pO2 148 H D ABG HCO3 22 ABG O2 Saturation 100 H ABG Base Excess -2 Oxygen Liter Flow FiO2 21 Sodium 137 Potassium 4.4 Chloride 104 Carbon Dioxide 20.3 Anion Gap 13 BUN 52 H Creatinine 4.0 H Estim Creat Clear Calc 17.5 L eGFR 15 L BUN/Creatinine Ratio 13 Glucose [address] Glu mg/dL Hemoglobin A1c Calculated Osmolality 294 Lactic Acid 0.9 Uric Acid Calcium 9.2 Corrected Calcium 9.4 Phosphorus 3.9 Magnesium 1.9 Total Bilirubin 0.5 D Direct Bilirubin AST 29 ALT 29 Alkaline Phosphatase 65 D Ammonia Total Creatine Kinase Troponin I C-Reactive Prot, Quant B-Natriuretic Peptide Total Protein 5.9 Albumin 3.8 Globulin 2.1 L Albumin/Globulin Ratio 1.8 Amylase Lipase Beta-Hydroxybutyrate/Acetoacetate Procalcitonin TSH Ur Collection Type Urine Color Urine Clarity Urine pH Ur Specific [place] Urine Protein Urine Glucose (UA) Urine Ketones Urine Blood Urine Nitrite Urine Bilirubin Urine Urobilinogen (Auto) Ur Leukocyte Esterase Urine RBC Urine WBC Ur Squamous Epith Cells Urine Bacteria Ur Culture Indicated? Ur Random Creatinine Ur Random Sodium Ur Random Urea Nitrogn Urine Opiates Screen Urine Fentanyl Screen Ur Barbiturates Screen U Amphetamin/Meth Scrn U Benzodiazepines Scrn U Cocaine Metab Screen U Marijuana (THC) Screen Ethyl Alcohol ABG Interpretation ABG results: 11/13/25 11/13/25 11/14/25 10:10 16:04 04:22 ABG pH 7.41 7.40 7.40 ABG pCO2 25 L 32 36 ABG pO2 53 L* 87 D 148 H D ABG HCO3 16 L 20 22 ABG O2 Saturation 88 L 95 100 H ABG Base Excess -7 L -4 L -2 Quality Measures Quality Measures VTE prophylaxis Advance care planning discussed with:: patient and spouse Assessment & Plan Assessment Current Active Medications: Generic Name Dose Route Start Last Admin Trade Name Freq PRN Reason Stop Dose Admin Acetaminophen 650 mg 11/13/25 12:19 Acetaminophen 325 Mg Tablet PO 12/13/25 12:18 Q6HR PRN pain 1-3 or temp>100.2 Albuterol/Ipratropium 3 ml 11/13/25 18:45 Albuterol/Ipratropium (Duoneb) Rt Mariela 3 Ml Nebu INH 12/13/25 18:59 Q6HRRT PRN wheezing or SOB Atorvastatin Calcium 40 mg 11/13/25 21:00 11/13/25 20:14 Atorvastatin Calcium 20 Mg Tablet PO 12/13/25 20:59 40 mg HS ANG Administration Dextrose 25 ml 11/13/25 15:05 Dextrose 50%-Water Inj 50 Ml Syringe IV 12/13/25 15:04 Q15MIN PRN BG 50-70 responsive npo pt Dextrose 50 ml 11/13/25 15:05 Dextrose 50%-Water Inj 50 Ml Syringe IV 12/13/25 15:04 Q15MIN PRN BG <50 OR BG <70 & pt unresponsive Famotidine 20 mg 11/13/25 21:00 11/14/25 08:18 Famotidine Inj 10 Mg/Ml Vial 2 Ml IVP 12/13/25 20:59 20 mg BID ANG Administration Glucagon 1 mg 11/13/25 15:05 Glucagon Inj 1 Mg Vial IM Q15MIN PRN BG <70, and no IV access Ceftriaxone Sodium/Dextrose 1 gm in 50 mls @ 100 mls/hr 11/14/25 09:00 11/14/25 08:16 Rocephin/D5w 1gm Iv Premix IV 11/21/25 08:59 100 mls/hr QDAY ANG Administration Azithromycin 500 mg/ Sodium 250 mls @ 250 mls/hr 11/14/25 09:00 11/14/25 08:17 Chloride IV 11/15/25 08:59 250 mls/hr QDAY ANG Administration Dopamine HCl/Dextrose 400 mg in 250 mls @ 15.309 mls/hr 11/13/25 16:47 11/14/25 06:00 Intropin In D5w Ivpb IV 12/13/25 10:06 2.5 mcg/kg/min .[id number] ANG 7.654 mls/hr Protocol Titration 5 MCG/KG/MIN Lactated Ringer's 1,000 mls @ 80 mls/hr 11/14/25 08:15 11/14/25 08:18 Lactated Ringers IV 11/14/25 20:44 80 mls/hr .[id number] ONE Administration Insulin Degludec 25 unit 11/14/25 21:00 Insulin Degludec 5 Unit/0.05 Ml (Per 5 Units) SC 12/14/25 20:59 HS ANG Insulin Human Lispro 0 unit 11/13/25 18:45 11/14/25 08:17 Insulin Lispro (Admelog) 1 Unit/0.01 Ml Unit SC 12/13/25 18:44 4 unit ACHS ANG Administration Protocol Insulin Human Lispro 8 unit 11/13/25 18:40 11/14/25 08:34 Insulin Lispro (Admelog) 1 Unit/0.01 Ml Unit SC 12/13/25 18:39 Not Given On Hold: 11/14/25 09:13 AC ANG Ondansetron HCl 4 mg 11/13/25 12:04 Ondansetron Inj 2 Mg/Ml Inj 2 Ml IVP 12/13/25 12:03 Q6H PRN NAUSEA OR VOMITING Protocol Plan Mr Melendrez is a 75 year old gentleman with a history of diffuse large B-cell lymphoma status postchemotherapy 2017 in remission, status postcraniotomy 2021, hypertension, hyperlipidemia, type 2 diabetes insulin-dependent who presented with hypotension, who was admitted to the ICU for cardiogenic shock, on dopamine drip. dopamine drip d/c on 11/14. Neuro No active problems CV IVC is Shock - resolved Sinus Braydcardia Ddx Cardiogenic shock Dx lactic resolved, and cap refill <3 sec, dopamine was discontinued, and able to self sustain his pressures Pulm Acute Hypoxic Respiratory Failure - improved 2/2 Pneumonia Ddx CAP Dx patient may not be able to mount a big immune response given his hx of lymphoma his wbc 10 (he takes filgastrim injections every week), patient remains afebrile, able to expectorate yellow sputum, MRSA Nares pending, Rx Azithro 500 for 3 day course IV (11/13- ) Cefriaxone 1 gm 5 day course ( 11/13- 11/14) Rxx GI No active problems Nausea and vomiting - resolved - Zofran PRN Renal GRADY on CKD stage IV- improving Oliguria Ddx: prerenal (more likely) vs intrarenal Dx: Cr 4.4-->3.8 (today), baseline Cr: 2.4. suspect in setting of cardiogenic shock and poor perfusion likely prerenal, Consider nephrotoxicity of IVIG, however last infusion of ivig was about 2 weeks ago. Rx: encourage PO intake, give 1 L LR at 80cc/hr. CTM renal fuction BID. Avoid nephrotoxic agents, strict ins and outs, fuller cath placed. Rxx: if renal fxn worsens and decreased urine function consider HD. Metabolic Acidosis - resolved Lactic Acidosis - resolved Mildly elevated Betahydroxybutrate- resolved Ddx lactic acidosis in setting of cardiogenic shock ENDO Insulin dependent Type 2 DM- well controlled Hyperglycemia Glucosuria Dx A1c 5.7, glucosuria 2/2 ckd, Rx Insulin SSI step 3, ACHS finger checks, Degludec 25 qhs, and Lispro scheduled with meals 8 units, Q6hr blood sugar checks, restart degludec 1/2 his home dose of 36 at 18 units q hs . gave 10 units regular insulin for hyperglycemia 400s, and sliding scale on top. Rxx Consider insulin drip if refractory to short acting vs regular insulin. HEME/ONC Diffuse B cell Lymphoma in remission ?concern for tumor lysis Home meds: allopurinol 300mg qd (to prevent tumor lysis), acyclovir 400 (to prevent for CMV), lenalidomide 10 mg, Zanubrutinib 320mg qd Rx: monitor renal panel for signs of tumor lysis syndrome, thus far, no signs of tumor lysis thus far on electrolytes which were being checked q4, will transition to BID renal panels with mag. MSK No active problems. Dispo:Admitted to ICU for cardiogenic shock, on dopamine drip with goal sbp>90. Diet: cardiac diet, with fluid restriction 1000 Lines: R a line, fuller catheter VTE ppx: heparin 5000 q12 GI ppx: famotidine 20 bid, Bowel Reg: docusate+ senna for constipation. Code status: FULL Case disclosed with my senior resident Dr. Wang and my Attending Dr. Kathrin Crawford MD PGY1 Attending Provider Attestation/Addendum Patient seen and examined with the above resident, Sarita Crawford MD. I agree with the findings, assessment, and plan of care as documented. Patient doing well with dopamine infusion for optimization of cardiac output. Weaned off Bipap support to NC. Favor volume as etiology of respiratory failure. Prompt improvement n lactic acidosis through the day and overnight . Patient's renal function is lagging but did respond to lasix partially, but may have been inotropes leading to renal recovery more than diuretics. He is well known to [facility] as they are also PCP. Patient will need to maintain adequate perfusion pressure to help with renal recovery. Imaging shows edema improved and doubtful true pneumonia based on clinical course. No other indication emergently for HD at this time. Resume diet and will optimize prior to transfer to the floor. Bipap overnight still will help form non-pulmonary perspective in CHF. Total critical care time: I personally spent 40 minutes for review of physiologic parameters, directing plan of care, coordination of care with other subspecialists, and counseling patient and his at the bedside. This is exclusive of time spent teaching housestaff or performing any separate billable procedures. Patient remained at risk for further morbidity and mortality warranting close monitoring and care only available in the ICU. Critical care services required for heart failure, acute on chronic renal failure, hyperkalemia, and acute hypoxic respiratory failure.
[2025-11-14 10:04] LABS: Albumin, Serum 3.9 gm/dL (3.4-4.8); Anion Gap 12 (7-16); BUN/Creatinine Ratio 14 Ratio (12-20); Blood Urea Nitrogen 55 mg/dL (9-23); Calcium 8.8 mg/dL (8.3-10.6); Calcium (Corrected) 8.9 mg/dL (8.5-10.1); Carbon Dioxide 21.4 mMol/L (20.0-31.0); Chloride 106 mMol/L (98-107); Creatinine (Component) 3.8 mg/dL (0.6-1.3); Estimated Creatinine Clearance 18.4 mL/min (>60); Glucose 204 mg/dL (74-106); Magnesium 1.9 mg/dL (1.6-2.6); Osmolality,Calculated 298 (275-295); Phosphorous 4.0 mg/dL (2.4-5.1); Potassium 4.4 mMol/L (3.4-5.1); Sodium 139 mMol/L (136-145); eGFR 16 See Note
[2025-11-14] MEDS: INSULIN LISPRO (AdmeLOG) 1 UNIT/0.01 ML UNIT 8 UNIT SC (11:22)
--- NOTE | 2025-11-14 12:00 | XR_ITS ---
AP portable semiupright chest film on 11/14/2025 at 8:36 a.m. INDICATION: Pneumonia and vascular congestion, status post IV fluids Comparison study 11/13/2025 FINDINGS: Heart size is normal and the hilar regions and mediastinum appear all right no pleural effusion is seen on either the right or left sides. There appear to be several director of casino leads and/or pacemaker overlying the heart shadow. Today's film is taken with a moderately better inspiration than yesterday's. There does appear to be mild cardiomegaly although this can be falsely accentuated by the AP film technique There is definite patchy alveolar infiltrate throughout the basal segments of the right lower lobe. The left lung appears clear. IMPRESSION: 1. Probable mild cardiomegaly, and better inspiration on today's film suggests that the heart size was magnified on the previous film due to poor inspiration Tube patchy alveolar infiltrate throughout the basal segments right lower lobe most consistent with pneumonia. On the films this appears about 30% improved from yesterday's study, however again, the better inspiration might account for this apparent improvement.
--- NOTE | 2025-11-14 14:29 | PC.RT ---
Pt placed on RA by nursing, tolerating well, o2 sats maintaining above 92%, no respiratory distress noted.
[2025-11-14 16:51] LABS: Albumin, Serum 3.7 gm/dL (3.4-4.8); Anion Gap 11 (7-16); BUN/Creatinine Ratio 15 Ratio (12-20); Blood Urea Nitrogen 54 mg/dL (9-23); Calcium 8.5 mg/dL (8.3-10.6); Calcium (Corrected) 8.7 mg/dL (8.5-10.1); Carbon Dioxide 23.0 mMol/L (20.0-31.0); Chloride 105 mMol/L (98-107); Creatinine (Component) 3.6 mg/dL (0.6-1.3); Estimated Creatinine Clearance 19.5 mL/min (>60); Glucose 106 mg/dL (74-106); Magnesium 1.9 mg/dL (1.6-2.6); Osmolality,Calculated 292 (275-295); Phosphorous 3.9 mg/dL (2.4-5.1); Potassium 4.4 mMol/L (3.4-5.1); Sodium 139 mMol/L (136-145); eGFR 17 See Note
--- NOTE | 2025-11-14 17:31 | PC.RT ---
RT notified that md was able to collect sputum sample.
--- NOTE | 2025-11-14 17:47 | PC.NURSE ---
pt has not voided since fuller catheter being removed at 1315 , bladder scanned pt at 1745 pt had 342 mls of urine on scan made aware no new orders given at this time
--- NOTE | 2025-11-14 18:31 | ESPR_ITS ---
Documentation for date of: 11/14/25 Subjective Subjective Interval history: Mr Melendrez is a 75 year old gentleman with a history of diffuse large B-cell lymphoma status postchemotherapy 2017 in remission, status postcraniotomy 2021, hypertension, hyperlipidemia, type 2 diabetes insulin-dependent, who came to the emergency department with a chief complaint of malaise and weakness, he reports that on 11/11 he felt fluish for which he took apap. Endorsed diarrhea, night sweats, and weakness which prompted him to come to the ED. Admitted to the ICU for cardiogenic shock, initiated on dopamine drip, with goal of SBP>90, Art line was placed. Nephrology was consulted given GRADY on CKD, presntation cr 4.5, follows closely with andrew outpatient. In the Am dopamine drip was discontinued given his good perfusion and maintained sbp. 1 bag LR given concern for prerenal etiology of grady, he continues to make urine 25-50cc, Cr downtrending to 3.8. CXR shows decreased vascular congestion (patient recieved x1 lasix in the ED), and R sided PNA, on exam he has ronchi more notable in the R lung aceves. On 11/04 Cr downtrending, 3.6, and patient states that his weakness and SOB have improved. Exam Vital Signs Temp Pulse Resp BP Pulse Ox O2 Del Method O2 Flow Rate 97.2 F 55 L 29 H 132/56 H 99 BiPAP 4 11/14/25 04:00 11/14/25 16:47 11/14/25 16:47 11/14/25 16:47 11/14/25 16:47 11/14/25 04:00 11/14/25 10:19 FiO2 45 11/14/25 07:20 Narrative Exam GENERAL: no acute distress, AAO x3, comfortably laying in bed HEENT: Head AT/ NC. Mucous membranes moist. PERRL. NECK: Supple, no lymphadenopathy, no carotid bruits. CARDIOVASCULAR: RRR. Normal S1/S2, No m/r/g. trace edema bilaterally . RESPIRATORY: decreased breath sounds on the R mid lung aceves and, right mid to low lung aceves with coarse ronchi, intermittent coughing. satting well on NC. GASTROINTESTINAL: Abdomen soft, non tender no palpable masses. Bowel sounds present MUSCULOSKELETAL:? No cyanosis or edema, no visible joint swelling. NEUROLOGICAL: CN II-XII grossly intact. No focal deficits. Sensation intact, symmetric. PSYCHIATRIC: Awake and alert, not agitated, normal mood and affect. SKIN: No obvious rashes, no jaundice, normal turgor. Lines R radial A line , PIV, fuller catheter, Objective Labs 11/15/25 05:13 11/15/25 05:13 Labs: Laboratory Results - last 24 hr 11/13/25 11/13/25 11/13/25 19:57 21:00 22:50 WBC RBC Hgb Hct MCV MCH MCHC RDW Std Deviation Plt Count Neut % (Auto) Lymph % (Auto) Bladen % (Auto) Eos % (Auto) Baso % (Auto) Neut # (Auto) Lymph # (Auto) Bladen # (Auto) Eos # (Auto) Baso # (Auto) Immature Gran # (Auto) Absolute Nucleated RBC Immature Gran % Nucleated RBC % Puncture Site ABG pH ABG pCO2 ABG pO2 ABG HCO3 ABG O2 Saturation ABG Base Excess FiO2 Sodium 136 Potassium 4.2 D Chloride 103 Carbon Dioxide 20.5 Anion Gap 13 BUN 50 H Creatinine 4.4 H* Estim Creat Clear Calc 15.9 L eGFR 13 L* BUN/Creatinine Ratio 11 L Glucose 365 H D Calculated Osmolality 300 H Lactic Acid 2.0 Calcium 9.2 Corrected Calcium 9.2 Phosphorus 2.5 Magnesium 1.8 Total Bilirubin AST ALT Alkaline Phosphatase Total Creatine Kinase 301 H Total Protein Albumin 4.1 Globulin Albumin/Globulin Ratio Ur Random Sodium 28.1 11/14/25 11/14/25 11/14/25 00:15 04:22 05:41 WBC 4.4 D RBC 3.18 L Hgb 10.5 L Hct 29.6 L MCV 93 MCH 33.0 MCHC 35.5 RDW Std Deviation 50.6 H Plt Count 91 L Neut % (Auto) 75 Lymph % (Auto) 8 L Bladen % (Auto) 9 Eos % (Auto) 0 Baso % (Auto) 1 Neut # (Auto) 3.3 Lymph # (Auto) 0.4 L Bladen # (Auto) 0.4 Eos # (Auto) 0.0 Baso # (Auto) 0.0 Immature Gran # (Auto) 0.32 H Absolute Nucleated RBC 0.00 Immature Gran % 7 H Nucleated RBC % 0 Puncture Site Arterial Line ABG pH 7.40 ABG pCO2 36 ABG pO2 148 H D ABG HCO3 22 ABG O2 Saturation 100 H ABG Base Excess -2 FiO2 21 Sodium 137 137 Potassium 4.4 4.4 Chloride 103 104 Carbon Dioxide 21.7 20.3 Anion Gap 12 13 BUN 45 H 52 H Creatinine 4.0 H 4.0 H Estim Creat Clear Calc 17.5 L 17.5 L eGFR 15 L 15 L BUN/Creatinine Ratio 11 L 13 Glucose 275 H D 230 H Calculated Osmolality 295 294 Lactic Acid 0.9 Calcium 8.9 9.2 Corrected Calcium 8.9 9.4 Phosphorus 2.6 3.9 Magnesium 1.8 1.9 Total Bilirubin 0.5 D AST 29 ALT 29 Alkaline Phosphatase 65 D Total Creatine Kinase Total Protein 5.9 Albumin 4.2 3.8 Globulin 2.1 L Albumin/Globulin Ratio 1.8 Ur Random Sodium 11/14/25 11/14/25 09:04 16:14 WBC RBC Hgb Hct MCV MCH MCHC RDW Std Deviation Plt Count Neut % (Auto) Lymph % (Auto) Bladen % (Auto) Eos % (Auto) Baso % (Auto) Neut # (Auto) Lymph # (Auto) Bladen # (Auto) Eos # (Auto) Baso # (Auto) Immature Gran # (Auto) Absolute Nucleated RBC Immature Gran % Nucleated RBC % Puncture Site ABG pH ABG pCO2 ABG pO2 ABG HCO3 ABG O2 Saturation ABG Base Excess FiO2 Sodium 139 139 Potassium 4.4 4.4 Chloride 106 105 Carbon Dioxide 21.4 23.0 Anion Gap 12 11 BUN 55 H 54 H Creatinine 3.8 H 3.6 H Estim Creat Clear Calc 18.4 L 19.5 L eGFR 16 L 17 L BUN/Creatinine Ratio 14 15 Glucose 204 H 106 D Calculated Osmolality 298 H 292 Lactic Acid Calcium 8.8 8.5 Corrected Calcium 8.9 8.7 Phosphorus 4.0 3.9 Magnesium 1.9 1.9 Total Bilirubin AST ALT Alkaline Phosphatase Total Creatine Kinase Total Protein Albumin 3.9 3.7 Globulin Albumin/Globulin Ratio Ur Random Sodium ABG Interpretation ABG results: 11/13/25 11/13/25 11/14/25 10:10 16:04 04:22 ABG pH 7.41 7.40 7.40 ABG pCO2 25 L 32 36 ABG pO2 53 L* 87 D 148 H D ABG HCO3 16 L 20 22 ABG O2 Saturation 88 L 95 100 H ABG Base Excess -7 L -4 L -2 Quality Measures Quality Measures VTE prophylaxis Advance care planning discussed with:: patient and spouse Assessment & Plan Assessment Current Active Medications: Generic Name Dose Route Start Last Admin Trade Name Freq PRN Reason Stop Dose Admin Acetaminophen 650 mg 11/13/25 12:19 Acetaminophen 325 Mg Tablet PO 12/13/25 12:18 Q6HR PRN pain 1-3 or temp>100.2 Albuterol/Ipratropium 3 ml 11/13/25 18:45 Albuterol/Ipratropium (Duoneb) Rt Mariela 3 Ml Nebu INH 12/13/25 18:59 Q6HRRT PRN wheezing or SOB Atorvastatin Calcium 40 mg 11/13/25 21:00 11/13/25 20:14 Atorvastatin Calcium 20 Mg Tablet PO 12/13/25 20:59 40 mg HS ANG Administration Dextrose 25 ml 11/13/25 15:05 Dextrose 50%-Water Inj 50 Ml Syringe IV 12/13/25 15:04 Q15MIN PRN BG 50-70 responsive npo pt Dextrose 50 ml 11/13/25 15:05 Dextrose 50%-Water Inj 50 Ml Syringe IV 12/13/25 15:04 Q15MIN PRN BG <50 OR BG <70 & pt unresponsive Famotidine 20 mg 11/13/25 21:00 11/14/25 08:18 Famotidine Inj 10 Mg/Ml Vial 2 Ml IVP 12/13/25 20:59 20 mg BID ANG Administration Glucagon 1 mg 11/13/25 15:05 Glucagon Inj 1 Mg Vial IM Q15MIN PRN BG <70, and no IV access Lactated Ringer's 1,000 mls @ 80 mls/hr 11/14/25 08:15 11/14/25 08:18 Lactated Ringers IV 11/14/25 20:44 80 mls/hr .[id number] ONE Administration Doxycycline Hyclate 100 mg/ 100 mls @ 100 mls/hr 11/14/25 21:00 Sodium Chloride IV 11/21/25 20:59 BID ANG Insulin Degludec 25 unit 11/14/25 21:00 Insulin Degludec 5 Unit/0.05 Ml (Per 5 Units) SC 12/14/25 20:59 HS ANG Insulin Human Lispro 0 unit 11/13/25 18:45 11/14/25 17:52 Insulin Lispro (Admelog) 1 Unit/0.01 Ml Unit SC 12/13/25 18:44 Not Given ACHS [facility] Protocol Insulin Human Lispro 8 unit 11/13/25 18:40 11/14/25 17:53 Insulin Lispro (Admelog) 1 Unit/0.01 Ml Unit SC 12/13/25 18:39 Not Given AC ANG Ondansetron HCl 4 mg 11/13/25 12:04 Ondansetron Inj 2 Mg/Ml Inj 2 Ml IVP 12/13/25 12:03 Q6H PRN NAUSEA OR VOMITING Protocol Sennosides 1 tab 11/15/25 09:00 Senna/Docusate Sod 1 Tab Tablet PO 12/15/25 08:59 QDAY [facility] Protocol Plan Mr Melendrez is a 75 year old gentleman with a history of diffuse large B-cell lymphoma status postchemotherapy 2017 in remission, status postcraniotomy 2021, hypertension, hyperlipidemia, type 2 diabetes insulin-dependent who presented with hypotension, who was admitted to the ICU for cardiogenic shock, on dopamine drip. dopamine drip d/c on 11/14. GRADY on CKD stage IV- improving Oliguria Ddx: prerenal (more likely) vs intrarenal Dx: Cr 4.4-->3.8 --> 3.6 (today), baseline Cr: 2.4. suspect in setting of cardiogenic shock and poor perfusion likely prerenal, Consider nephrotoxicity of IVIG, however last infusion of ivig was about 2 weeks ago. Rx: encourage PO intake, give 1 L LR at 80cc/hr. CTM renal fuction BID. Avoid nephrotoxic agents, strict ins and outs, fuller cath placed. Rxx: if renal fxn worsens and decreased urine function consider HD. GPC bacteremia Preliminary blood cultures grew GPC resembling staph in 1 out of 2 bottles. Patient afebrile and vital signs remarkable for RR 27 and HR 55. started doxycycline IV 100mg BID Azithro 500 for 3 day course IV (11/13- ) Cefriaxone 1 gm 5 day course ( 11/13- 11/14) Repeat B ctx Acute Hypoxic Respiratory Failure - improved 2/2 Pneumonia Ddx CAP Dx patient may not be able to mount a big immune response given his hx of lymphoma his wbc 10 (he takes filgastrim injections every week), patient remains afebrile, able to expectorate yellow sputum, MRSA Nares pending, Rx Azithro 500 for 3 day course IV (11/13- ) Cefriaxone 1 gm 5 day course ( 11/13- 11/14) Rxx Insulin dependent Type 2 DM- well controlled Hyperglycemia Glucosuria Dx A1c 5.7, glucosuria 2/2 ckd, Rx Insulin SSI step 3, ACHS finger checks, Degludec 25 qhs, and Lispro scheduled with meals 8 units, Q6hr blood sugar checks, restart degludec 1/2 his home dose of 36 at 18 units q hs . gave 10 units regular insulin for hyperglycemia 400s, and sliding scale on top. Rxx Consider insulin drip if refractory to short acting vs regular insulin. Diffuse B cell Lymphoma in remission ?concern for tumor lysis Home meds: allopurinol 300mg qd (to prevent tumor lysis), acyclovir 400 (to prevent for CMV), lenalidomide 10 mg, Zanubrutinib 320mg qd Rx: monitor renal panel for signs of tumor lysis syndrome, thus far, no signs of tumor lysis thus far on electrolytes which were being checked q4, will transition to BID renal panels with mag. Sinus Braydcardia Ddx Cardiogenic shock Dx lactic resolved, and cap refill <3 sec, dopamine was discontinued, and able to self sustain his pressures Shock - resolved Metabolic Acidosis - resolved Lactic Acidosis - resolved Mildly elevated Betahydroxybutrate- resolved Ddx lactic acidosis in setting of cardiogenic shock Nausea and vomiting - resolved - Zofran PRN Dispo: Downgraded to Telemetry Diet: cardiac diet, with fluid restriction 1000 Lines: R a line, fuller catheter VTE ppx: heparin 5000 q12 GI ppx: famotidine 20 bid, Bowel Reg: docusate+ senna for constipation. Code status: FULL This case was discussed with my attending physician, Dr. Reilly, and senior resident, Dr Peres. Even though this this note was carefully revised there may still be minor errors in leather toggler due to voice recognition software. Joaquin Solano, DO PGY I Senior Resident Attestation: The patient was downgraded yesterday from ICU, and was treated for cardiogenic shock, and later still continues to be on GRADY, likely prerenal due to cardiogenic shock, and will continue to watch for improvement in renal function, and he also had GPC growing in 1 out of 2 bottles, was started on doxycycline, and we will get another blood culture repeat done today. I discussed with and supervised the paid internship physician involved in the care of this patient. I personally saw and examined the patient and discussed the assessment and plan with the entire medicine team, including my attending. I agree with the assessment and plan as documented above. Hipolito Peres MD PGY3 Internal Medicine Attending Provider Attestation/Addendum I have seen and examined the patient. I was physically present for the fox portions of the services provided including history, physical exam, diagnosis, treatment plans and orders. I agree with assessment and plan of care as documented by residents. Even though this this note was carefully revised there may still be minor errors in leather toggler due to voice recognition software. Crystal Reilly MD
--- NOTE | 2025-11-14 19:54 | PD.RESPRO ---
Documentation for date of: 11/14/25 Subjective Subjective Interval history: History of Present Illness: Mr Geremias Melendrez is 75yM with PMH of diffuse large B-cell lymphoma status postchemotherapy 2017 in remission, status postcraniotomy 2021, hypertension, hyperlipidemia, type 2 diabetes insulin-dependent, presented to the ED on 11/13/2025 due to progressive malaise and generalized weakness. According to the patient, he developed flu like symptoms on friday (11/11), including myalgias and low grade fever. He took tylenol at home with minimal relief. His symptoms subsequently progressed to include nausea, muntiple episodes of vomiting, and several episodes of diarrhea. He also reports an episode of hypoxia at home during which is O2sat dropped to 79% and HR 70s. Patient received IVIG at [facility] last week friday. 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 In the ED, patient's VA dropped to 27, RR 29, and BP dropped to 77/45 and Oxymask of 15L to maintain 90%O2 sat. Patient was admitted to ICU for possibility of cardiogenic shock and Cardiology consulted complete AV block. In ED: Vitals: Temp: 98.7F, VA:27, RR:14, BP:122/41, O2sat 90% on Oxymask 15L Labs: WBC: 4.1, Hgb:10.6, Hct:30.8, Plt: 82, D-Dimer: 2020, ABG pH: 7.41, ABG pCO2: 25, A, BUN: 32, Cr: 4.1, eGFR:15, Glucose 281, Lactic acid: 8.2, Troponin 0.319, CRP: 6.8, BNP: 738, Procal: 4.62 CXR: Significant right lung pneumonia, Mild associated heart failure In ED, patient received Duoneb 3ml INH x1, Dopamine drip, IV Methylprednisolone 125 mg x1, Medical history: As stated above Surgical history: Craniotomy in 2021 at [facility] Allergies: NKDA Medications: apap 325, amlodipine 5 mg, asa 81, allopurinol 300mg qd, acyclovir, atorvastatin 40, folic acid 1mg , glipizide 10 mg , degludec 36 units qam, lenalidomide 10 mg, multivitamin , pantoprazole 40 mg, bactrim 800-160 three times a week, Zanubrutinib 320mg qd Family history: Noncontributory Social history: Denies smoking cigarettes, drinking alcohol or using other illicit drugs, 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 Patient has symptomatic bradycardia with EKG showing complete heart block. In the ED, patient's VA dropped to 27, RR 29, and BP dropped to 77/45 and Oxymask of 15L to maintain 90%O2 sat. Received dopamin drip in ED. Current BP is 110/52, VA:88. Pt has underlying metabolite imbalance, including hypomagnesemia. Correct electrolyte abnormalities. Ordered repeat EKG, and keep pads on patient, continue to monitor rhythm. ECHO is taken pending read. 11/14/2025: Patient' underlying conduction disturbances likely secondary to GRADY. Patient was on multiple nephrotoxic agents (Bactrim, acyclovir, allopurinol and IVIG). Recommend avoiding beta-blockers, Diltiazem, ACEi/ARBs for BP managment for now. If needs BP managment, recommend using amlodipine and hydralazine. Exam Vital Signs Temp Pulse Resp BP Pulse Ox O2 Del Method O2 Flow Rate 97.2 F 60 19 132/56 H 97 BiPAP 4 11/14/25 04:00 11/14/25 18:54 11/14/25 18:54 11/14/25 16:47 11/14/25 18:54 11/14/25 04:00 11/14/25 10:19 FiO2 45 11/14/25 07:20 Narrative Exam General: No acute distress, well nourished, AAO x3 Eye: PERRL, EOMI, normal conjunctiva, no scleral icterus HENT: Normocephalic, atraumatic, hearing intact to conversation at normal volume, moist oral mucosa Neck: Supple, non-tender, no JVD, no lymphadenopathy Lungs: Non-labored respirations, symmetric chest rise, Clear to auscultate bilaterally, No wheezing, rhonchi, crackles Heart: Peripheral pulses intact bilaterally, Regular Rate and Rhythm. Abdomen: Soft, non-tender, non-distended, no palpable masses Musculoskeletal: No cyanosis or edema, No visible joint swelling Skin: Skin is warm, dry, no rashes or lesions. Psychiatric: Cooperative, appropriate mood and affect, Awake and alert, not agitated Neuro: Cranial nerves II-XII grossly intact. Sensations intact to light touch. Objective Labs 11/15/25 05:13 11/15/25 05:13 Labs: Laboratory Results - last 24 hr 11/13/25 11/13/25 11/13/25 19:57 21:00 22:50 WBC RBC Hgb Hct MCV MCH MCHC RDW Std Deviation Plt Count Neut % (Auto) Lymph % (Auto) [place] % (Auto) Eos % (Auto) Baso % (Auto) Neut # (Auto) Lymph # (Auto) [place] # (Auto) Eos # (Auto) Baso # (Auto) Immature Gran # (Auto) Absolute Nucleated RBC Immature Gran % Nucleated RBC % Puncture Site ABG pH ABG pCO2 ABG pO2 ABG HCO3 ABG O2 Saturation ABG Base Excess FiO2 Sodium 136 Potassium 4.2 D Chloride 103 Carbon Dioxide 20.5 Anion Gap 13 BUN 50 H Creatinine 4.4 H* Estim Creat Clear Calc 15.9 L eGFR 13 L* BUN/Creatinine Ratio 11 L Glucose 365 H D Calculated Osmolality 300 H Lactic Acid 2.0 Calcium 9.2 Corrected Calcium 9.2 Phosphorus 2.5 Magnesium 1.8 Total Bilirubin AST ALT Alkaline Phosphatase Total Creatine Kinase 301 H Total Protein Albumin 4.1 Globulin Albumin/Globulin Ratio Ur Random Sodium 28.1 11/14/25 11/14/25 11/14/25 00:15 04:22 05:41 WBC 4.4 D RBC 3.18 L Hgb 10.5 L Hct 29.6 L MCV 93 MCH 33.0 MCHC 35.5 RDW Std Deviation 50.6 H Plt Count 91 L Neut % (Auto) 75 Lymph % (Auto) 8 L [place] % (Auto) 9 Eos % (Auto) 0 Baso % (Auto) 1 Neut # (Auto) 3.3 Lymph # (Auto) 0.4 L [place] # (Auto) 0.4 Eos # (Auto) 0.0 Baso # (Auto) 0.0 Immature Gran # (Auto) 0.32 H Absolute Nucleated RBC 0.00 Immature Gran % 7 H Nucleated RBC % 0 Puncture Site Arterial Line ABG pH 7.40 ABG pCO2 36 ABG pO2 148 H D ABG HCO3 22 ABG O2 Saturation 100 H ABG Base Excess -2 FiO2 21 Sodium 137 137 Potassium 4.4 4.4 Chloride 103 104 Carbon Dioxide 21.7 20.3 Anion Gap 12 13 BUN 45 H 52 H Creatinine 4.0 H 4.0 H Estim Creat Clear Calc 17.5 L 17.5 L eGFR 15 L 15 L BUN/Creatinine Ratio 11 L 13 Glucose 275 H D 230 H Calculated Osmolality 295 294 Lactic Acid 0.9 Calcium 8.9 9.2 Corrected Calcium 8.9 9.4 Phosphorus 2.6 3.9 Magnesium 1.8 1.9 Total Bilirubin 0.5 D AST 29 ALT 29 Alkaline Phosphatase 65 D Total Creatine Kinase Total Protein 5.9 Albumin 4.2 3.8 Globulin 2.1 L Albumin/Globulin Ratio 1.8 Ur Random Sodium 11/14/25 11/14/25 09:04 16:14 WBC RBC Hgb Hct MCV MCH MCHC RDW Std Deviation Plt Count Neut % (Auto) Lymph % (Auto) [place] % (Auto) Eos % (Auto) Baso % (Auto) Neut # (Auto) Lymph # (Auto) [place] # (Auto) Eos # (Auto) Baso # (Auto) Immature Gran # (Auto) Absolute Nucleated RBC Immature Gran % Nucleated RBC % Puncture Site ABG pH ABG pCO2 ABG pO2 ABG HCO3 ABG O2 Saturation ABG Base Excess FiO2 Sodium 139 139 Potassium 4.4 4.4 Chloride 106 105 Carbon Dioxide 21.4 23.0 Anion Gap 12 11 BUN 55 H 54 H Creatinine 3.8 H 3.6 H Estim Creat Clear Calc 18.4 L 19.5 L eGFR 16 L 17 L BUN/Creatinine Ratio 14 15 Glucose 204 H 106 D Calculated Osmolality 298 H 292 Lactic Acid Calcium 8.8 8.5 Corrected Calcium 8.9 8.7 Phosphorus 4.0 3.9 Magnesium 1.9 1.9 Total Bilirubin AST ALT Alkaline Phosphatase Total Creatine Kinase Total Protein Albumin 3.9 3.7 Globulin Albumin/Globulin Ratio Ur Random Sodium ABG Interpretation ABG results: 11/13/25 11/13/25 11/14/25 10:10 16:04 04:22 ABG pH 7.41 7.40 7.40 ABG pCO2 25 L 32 36 ABG pO2 53 L* 87 D 148 H D ABG HCO3 16 L 20 22 ABG O2 Saturation 88 L 95 100 H ABG Base Excess -7 L -4 L -2 Quality Measures Quality Measures VTE prophylaxis Advance care planning discussed with:: patient and other Assessment & Plan Assessment Current Active Medications: Generic Name Dose Route Start Last Admin Trade Name Freq PRN Reason Stop Dose Admin Acetaminophen 650 mg 11/13/25 12:19 Acetaminophen 325 Mg Tablet PO 12/13/25 12:18 Q6HR PRN pain 1-3 or temp>100.2 Albuterol/Ipratropium 3 ml 11/13/25 18:45 Albuterol/Ipratropium (Duoneb) Rt Mariela 3 Ml Nebu INH 12/13/25 18:59 Q6HRRT PRN wheezing or SOB Atorvastatin Calcium 40 mg 11/13/25 21:00 11/13/25 20:14 Atorvastatin Calcium 20 Mg Tablet PO 12/13/25 20:59 40 mg HS ANG Administration Dextrose 25 ml 11/13/25 15:05 Dextrose 50%-Water Inj 50 Ml Syringe IV 12/13/25 15:04 Q15MIN PRN BG 50-70 responsive npo pt Dextrose 50 ml 11/13/25 15:05 Dextrose 50%-Water Inj 50 Ml Syringe IV 12/13/25 15:04 Q15MIN PRN BG <50 OR BG <70 & pt unresponsive Famotidine 20 mg 11/13/25 21:00 11/14/25 08:18 Famotidine Inj 10 Mg/Ml Vial 2 Ml IVP 12/13/25 20:59 20 mg BID ANG Administration Glucagon 1 mg 11/13/25 15:05 Glucagon Inj 1 Mg Vial IM Q15MIN PRN BG <70, and no IV access Lactated Ringer's 1,000 mls @ 80 mls/hr 11/14/25 08:15 11/14/25 08:18 Lactated Ringers IV 11/14/25 20:44 80 mls/hr .[id number] ONE Administration Doxycycline Hyclate 100 mg/ 100 mls @ 100 mls/hr 11/14/25 21:00 Sodium Chloride IV 11/21/25 20:59 BID ANG Insulin Degludec 25 unit 11/14/25 21:00 Insulin Degludec 5 Unit/0.05 Ml (Per 5 Units) SC 12/14/25 20:59 HS ANG Insulin Human Lispro 0 unit 11/13/25 18:45 11/14/25 17:52 Insulin Lispro (Admelog) 1 Unit/0.01 Ml Unit SC 12/13/25 18:44 Not Given ACHS [facility] Protocol Insulin Human Lispro 8 unit 11/13/25 18:40 11/14/25 17:53 Insulin Lispro (Admelog) 1 Unit/0.01 Ml Unit SC 12/13/25 18:39 Not Given AC ANG Ondansetron HCl 4 mg 11/13/25 12:04 Ondansetron Inj 2 Mg/Ml Inj 2 Ml IVP 12/13/25 12:03 Q6H PRN NAUSEA OR VOMITING Protocol Sennosides 1 tab 11/15/25 09:00 Senna/Docusate Sod 1 Tab Tablet PO 12/15/25 08:59 QDAY ANG Protocol Plan Mr Geremias Melendrez is 75yM with PMH of diffuse large B-cell lymphoma status postchemotherapy 2017 in remission, status postcraniotomy 2021, hypertension, hyperlipidemia, type 2 diabetes insulin-dependent, presented to the ED on 11/13/2025 due to progressive malaise and generalized weakness. Patient was admitted to ICU for possibility of cardiogenic shock and Cardiology consulted for EKG showing complete AV block. #Symptomatic Bradycardia #Third Degree AV block-Ruled out -Ddx: GRADY 2/2 CKD 2/2 Bactrim VS Extensive Pnuemonia -Patient has active infection -CXR showing active pneumonia. -Procal: 4.62, Lactic acid: 8.2 -Possible shock secondary to bradycardia. In the ED, patient's VA dropped to 27, RR 29, and BP dropped to 77/45 and Oxymask of 15L to maintain 90%O2 sat. -Metabolic workup showed pt has acute on CKD with Cr elevated to 4.1 -Patient was on dopamin drip in ED. Current BP is 110/52, VA:88 -Pt has underlying metabolite imbalance, including hypomagnesemia. -On EKG, HR was 26. Severe bradycardia AV dissociation on EKG. Pt has complete 3rd degree heart block on EKG with Atrial rate faster than ventricle rate. -Past ECHO (09/28/2023) showed: Normal LV size and function. Mild LVH. Estimated EF 55-60%, Normal RV size and function. Mild MAC. Trace MR. Mild AV sclerosis without stenosis. Moderate AI Trace TR. Negative bubble study. No evidence of PFO or ASD. -ECHO (11/13/2025) showed: 1. Left ventricle size is normal and systolic function is normal. Estimated ejection fraction is 55-60%. There is grade I diastolic dysfunction. There is mild concentric hypertrophy noted. 2. Right ventricle chamber size is normal and systolic function is normal. Estimated RVSP is 19 mmHg. 3. There is mild aortic valve sclerosis with no stenosis and mild regurgitation. 4. There is trace mitral and tricuspid valve regurgitation. Mild MAC. 5. There is trivial pericardial effusion with no tamponade. 6. Pleural effusion visualized. Plan: -Patient' underlying conduction disturbances likely secondary to GRADY with lactic acidosis. -Patient presented with severe bradycardia with heart rate of 26 bpm with A-V dissociation on the EKG concerning for complete heart block with a narrow complex junctional escape rhythm. Possible etiology mostly secondary to the acute kidney injury with BUN in the 80s and creatinine of greater than 4 in the setting of lactic acidosis, infection as well as Bactrim. Patient was on multiple nephrotoxic agents (Bactrim, acyclovir, allopurinol and IVIG). -Started the patient on dopamine drip as patient was also hypotensive and patient heart rate did improve to 88 and expect the patient to improve secondary to the reversible causes mentioned above. -No need of any urgent pacemaker unless patient is hemodynamically unstable and would continue to treat the primary cause -Plan to titrate the patient off dopamine drip this morning. -Recommend avoiding beta-blockers, Diltiazem, ACEi/ARBs for BP managment for now. -If needs BP managment, recommend using amlodipine and hydralazine. -Correct electrolyte abnormalities, Mg>2, K>4 #Mild Vascular congestion in the setting of transient complete heart block -CXR showed mild vascular congestion -On examination, No Lower extremity edema noted -Troponin 0.319, CRP: 6.8, BNP: 738 -Past ECHO (09/28/2023) showed: Normal LV size and function. Mild LVH. Estimated EF 55-60%, Normal RV size and function. Mild MAC. Trace MR. Mild AV sclerosis without stenosis. Moderate AI Trace TR. Negative bubble study. No evidence of PFO or ASD. -patient does not have chest pain or palpation Plan: -Continue to monitor and start diuretics if patient is fluid overloaded. #CAP #Tachypnea 2/2 respiratory alkalosis #Hyperbilirubinemia #Acute renal failure #Hx of CKD #? 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 Geremias Melendrez. Cardiology will continue to follow Assessment and plan discussed with my attending physician Dr. Karina Brannon (PGY-1) - Internal medicine resident There is a high probability of sudden, clinically significant or life threatening deterioration in the patient condition which required the highest level of physician preparedness to intervene urgently. I have personally spent 65 minutes of critical care time, exclusive of time spent on any procedures, in evaluation and management of this critically ill patient. Attending Provider Attestation/Addendum I have personally seen and examined the patient separately on the above date of service and discussed the plan of care with the resident. I reviewed the resident Dr. Jesus Brannon consultation progress note and agree with the resident findings and plan in the note above and have also edited the documentation to reflect my findings and plan. Lino Collins M.D. Interventional Cardiology
--- NOTE | 2025-11-14 20:54 | PC.RT ---
scant amount of sputum collected. sputum sent to lab
[2025-11-14] MEDS: ATORVASTATIN CALCIUM 20 MG TABLET 40 MG PO (21:59)
[2025-11-14] MEDS: DOXYCYCLINE INJ 100 MG in SODIUM CHLORIDE 0.9% (POP) 100 ML IV (22:00)
[2025-11-14] MEDS: INSULIN DEGLUDEC 5 UNIT/0.05 ML (PER 5 UNITS) 25 UNIT SC (22:00)
[2025-11-15] VITALS (10 sets, daily range): BP systolic 120–155; BP diastolic 56–67; PULSE 51–67; RESP 16–97; TEMP 36.4–36.9; O2SAT 95–99; BMI 26.9
[2025-11-15 06:27] LABS: Basophils # (Auto) 0.0 Thou/mm3 (0.0-0.2); Basophils % (Auto) 1 % (0-2.5); Eosinophils # (Auto) 0.1 Thou/mm3 (0.0-0.5); Eosinophils % (Auto) 3 % (0-10); Hematocrit 26.1 % (41.0-53.0); Hemoglobin 9.3 g/dL (13.5-16.0); Immature Granulocytes Auto 0.15 Thou/mm3 (0.00-0.00); Lymphocytes # (Auto) 0.5 Thou/mm3 (1.0-4.8); Lymphocytes % (Auto) 17 % (10-50); Mean Corpuscular HGB Conc 35.6 g/dl (31.0-37.0); Mean Corpuscular Hemoglobin 33.3 pg (25.0-35.0); Mean Corpuscular Volume 94 fL (80-100); Monocytes # (Auto) 0.3 Thou/mm3 (0.0-0.8); Monocytes % (Auto) 9 % (0-12); Neutrophils # (Auto) 1.9 Thou/mm3 (1.8-7.7); Neutrophils % (Auto) 65 % (37-80); Nucleated Red Blood Cell # 0.00 Thou/mm3 (0.00-0.00); Nucleated Red Blood Cell % 0 /100 WBC (0); RDW Standard Deviation 51.0 fL (35.1-43.9); Red Blood Count 2.79 Miln/mm3 (4.50-5.90); White Blood Count 3.0 Thou/mm3 (3.8-10.6)
[2025-11-15 06:43] LABS: Alanine Aminotransferase 83 U/L (10-49); Albumin, Serum 3.4 gm/dL (3.4-4.8); Albumin/Globulin Ratio 1.9 (1.2-2.2); Alkaline Phosphatase 57 U/L (46-116); Anion Gap 10 (7-16); Aspartate Amino Transferase 70 U/L (0-34); BUN/Creatinine Ratio 18 Ratio (12-20); Bilirubin,Total 0.5 mg/dL (0.3-1.2); Blood Urea Nitrogen 55 mg/dL (9-23); Calcium 8.5 mg/dL (8.3-10.6); Calcium (Corrected) 9.0 mg/dL (8.5-10.1); Carbon Dioxide 22.6 mMol/L (20.0-31.0); Chloride 106 mMol/L (98-107); Creatinine (Component) 3.1 mg/dL (0.6-1.3); Estimated Creatinine Clearance 22.6 mL/min (>60); Globulin 1.8 gm/dL (2.3-3.5); Glucose 113 mg/dL (74-106); Magnesium 2.0 mg/dL (1.6-2.6); Osmolality,Calculated 293 (275-295); Phosphorous 4.0 mg/dL (2.4-5.1); Potassium 3.9 mMol/L (3.4-5.1); Sodium 139 mMol/L (136-145); Total Protein 5.2 gm/dL (5.7-8.2); eGFR 20 See Note
[2025-11-15 07:22] LABS: Platelet Count 77 Thou/mm3 (140-440)
[2025-11-15] MEDS: DOXYCYCLINE INJ 100 MG in SODIUM CHLORIDE 0.9% (POP) 100 ML IV ×2 (09:16→20:17)
[2025-11-15] MEDS: SENNA/DOCUSATE SOD 1 TAB TABLET PO (09:17)
[2025-11-15] MEDS: FAMOTIDINE INJ 10 MG/ML VIAL 2 ML 20 MG IVP ×2 (09:17→20:17)
--- NOTE | 2025-11-15 09:20 | PD.NEPHPROG ---
Documentation for date of: 11/15/25 Subjective Subjective Interval history: Mr Melendrez is a 75 year old gentleman with a history of diffuse large B-cell lymphoma status postchemotherapy 2017( at [facility]-currently on acyclovir, allopurinol,zarxio, folic acid, Revlimid, Bactrim, Brukinsa, IV IG qm) status postcraniotomy 2021, hypertension, hyperlipidemia, type 2 diabetes insulin-dependent, presented to the emergency department with nausea, vomiting, malaise and weakness. Has decreased p.o. intake for the last couple of days along with diarrhea. Patient was brought by his . In the ED he was noted to be very hypotensive, heart rate in less than 30. Patient was started on dopamine drip and transferred to ICU. HOME MEDS: apap 325, amlodipine 5 mg, asa 81, allopurinol 300mg qd, acyclovir, atorvastatin 40, folic acid 1mg , glipizide 10 mg , degludec 36 units qam, lenalidomide 10 mg, multivitamin , pantoprazole 40 mg, bactrim 800-160 three times a week, Zanubrutinib 320mg qd ED Course: patient was hypotensive, started on dopamine drip, cards was consulted, shaunumandltopher, labs notable for trop 0.3, hgb 12.4, wbc 10.4 (patient takes filgastram), d dimer 2019, hco3 17, Cr 4.4 with baseline 2.4, Lactic acid 8 downtrended to 2.4, uric acid 4.6, Phos wnl, mag 1.4, T miri 1.4, D miri 0.6, uncongugated miri 0.8, BNP 738,, UA with proteinuria, and glucosuria, otherwise bland, utox negative, Betahydroxybuyrate 0.9. Tx given solumedrol 125, nitroglycerine was started, 5 gm magnesium, 40 IV lasix, 2 iv morphine, ceftriaxone and azythromycin. 11/14/2025 renal consultation requested for GRADY. Patient is one of my CKD patients. PCP-Dr. Julio Currently seen in ICU. On dopamine drip. Denies any chest pain, shortness of breath. Did receive 1 dose of IV Lasix. ICU team at bedside 11/15/2025 patient currently seen in ICU. On telemetry status. Labs and medications have been reviewed. Creatinine tad better. I spoke to Dr. Lal at [facility]-recommended to hold off on IVIG, Brukinsa, Revlimid. Will see him in the outpatient setting. Agree with continuing gentle IV fluids. Blood pressure 130/67, heart rate 56, blood sugar 122. WBC 3, hemoglobin 9.3, platelets 77. Creatinine 3.1, GFR 20, AST 70, ALT 83, albumin 3.4 echocardiogram showed normal ejection fraction. MRI abdomen showed no hydronephrosis Review of Systems Review of Systems Narrative Review of Systems: CONSTITUTIONAL: Patient denies any fever, chills. Complaining of fatigue HEENT: Denies any visual disturbances or hearing problems. CARDIOVASCULAR: Patient denies any chest pain, shortness of breath, swelling in the lower extremities. PULMONARY: Patient denies any shortness of breath, cough. GASTROINTESTINAL: Patient denies any abdominal pain, constipation, nausea, vomiting, diarrhea. Decreased p.o. intake GENITOURINARY: Patient denies any urinary symptoms of burning or frequency or hematuria, denies any form in the urine. SKIN: Denies any rash. MUSCULOSKELETAL: Denies any muscular skeletal problems of joint pains. NEUROLOGICAL: Denies any neurological problems of strokes, seizures or confusion. Denies any memory problems. PSYCHIATRIC: Denies any depression or anxiety. LYMPHATICS : No lymphadenopathy Exam Vital Signs Temp Pulse Resp BP Pulse Ox O2 Del Method O2 Flow Rate 36.6 C 56 L 19 135/67 H 99 BiPAP 4 11/15/25 12:00 11/15/25 16:01 11/15/25 16:01 11/15/25 16:01 11/15/25 16:01 11/14/25 04:00 11/14/25 10:19 FiO2 45 11/14/25 07:20 Narrative Exam GENERAL APPEARANCE: Patient seems to be comfortable, adequately hydrated and nourished. HEENT: EOMI, PERRLA NECK: Neck supple, no JVD or bruit CARDIOVASCULAR: Heart regular, no murmurs LUNGS/CHEST: Chest clear to auscultation. No rales, rhonchi, wheezing ABDOMEN: Soft, nontender, nondistended. No masses. Normal bowel sounds. EXTREMITIES: No edema, clubbing or cyanosis. SKIN: Skin exam normal without any rashes MUSCULOSKELETAL: Musculoskeletal exam normal PSYCHIATRIC: Normal mood, affect LYMPHATICS: No lymphadenopathy noted NEUROLOGICAL : No neurological deficits Objective Labs 11/15/25 05:13 11/15/25 05:13 Labs: Laboratory Results - last 24 hr 11/15/25 05:13 WBC 3.0 L RBC 2.79 L Hgb 9.3 L Hct 26.1 L MCV 94 MCH 33.3 MCHC 35.6 RDW Std Deviation 51.0 H Plt Count 77 L Neut % (Auto) 65 Lymph % (Auto) 17 [place] % (Auto) 9 Eos % (Auto) 3 Baso % (Auto) 1 Neut # (Auto) 1.9 Lymph # (Auto) 0.5 L [place] # (Auto) 0.3 Eos # (Auto) 0.1 Baso # (Auto) 0.0 Immature Gran # (Auto) 0.15 H Absolute Nucleated RBC 0.00 Immature Gran % 5 H Nucleated RBC % 0 Sodium 139 Potassium 3.9 D Chloride 106 Carbon Dioxide 22.6 Anion Gap 10 BUN 55 H Creatinine 3.1 H D Estim Creat Clear Calc 22.6 L eGFR 20 L BUN/Creatinine Ratio 18 Glucose 113 H Calculated Osmolality 293 Calcium 8.5 Corrected Calcium 9.0 Phosphorus 4.0 Magnesium 2.0 Total Bilirubin 0.5 AST 70 H ALT 83 H Alkaline Phosphatase 57 Total Protein 5.2 L Albumin 3.4 Globulin 1.8 L Albumin/Globulin Ratio 1.9 Misc Test Result Platelets confirmed ABG Interpretation ABG results: 11/13/25 11/13/25 11/14/25 10:10 16:04 04:22 ABG pH 7.41 7.40 7.40 ABG pCO2 25 L 32 36 ABG pO2 53 L* 87 D 148 H D ABG HCO3 16 L 20 22 ABG O2 Saturation 88 L 95 100 H ABG Base Excess -7 L -4 L -2 Assessment & Plan Assessment and plan (1) GRADY (acute kidney injury): Status: Acute Assessment and plan: GRADY on CKD stage III. Most likely related to prerenal azotemia from decreased p.o. intake versus med related. Patient also noted to have hypotension and complete heart block on admission. Question related to viral illness. Clinically patient looks rather hypovolemic. Will give gentle IV fluids today. Heart rate in 59. Hold off on all nephrotoxic medications. Underlying CKD-probably related to the chemotherapy which she received and also IVIG which she has been getting q. monthly. Did talk to [facility] leukemia specialist-Dr. Lal-will hold off on current medications for now. She will follow him as an outpatient. Renal ultrasound showed no hydronephrosis (2) Sepsis: Status: Acute Assessment and plan: Low blood pressure, low heart rate rule out sepsis. Pending cultures. On antibiotics. Noted elevated LFTs-probably related to underlying hypotension. Hopefully improved (3) Complete heart block: Status: Acute Assessment and plan: Probably related to a viral illness. Recovered with a dopamine drip (4) B-cell lymphoma: Status: Acute Assessment and plan: High-grade B-cell lymphoma-underwent [facility] clinical trial. Multiple medications. Mets to brain. Patient currently on Brukinsa, IVIG, Revlimid (5) Diabetes mellitus: Status: Acute Assessment and plan: 1. Check blood sugars twice daily, log them and bring them back with the next visit. 2. is blood sugars above 400 or less than 80, call M.D. 3. Stay active and physically fit 4. Comply with diet and medications 5. Low carbohydrate diet Additional Assessment & Plan Additional Plan: Care discussed with ICU team Thank you Dr. Pinon for allowing me to participate in the care of Mr. Melendrez PROCEDURES: Arterial Line Size (Gauge): 18
[2025-11-15 10:15] LABS: Slide Review Platelets confirmed
--- NOTE | 2025-11-15 11:03 | ESPR_ITS ---
<Statement entered by Jeff Shah MD - 11/15/25 17:02> I saw and examined patient personally and supervised PGY 1 resident, Dr. Barajas with formulating a management plan. I agree with the documentation with the exceptions as listed below. Patient's GRADY continues to improve, creatinine 3.1 today from 4.5 on admission. Continuing gentle IV hydration as per nephrology recommendations. On doxycycline for community-acquired pneumonia. Pending repeat blood cultures from 11/15 and sputum culture from 11/14. Once patient's condition continues to improve, anticipate discharge within next 24 to 48 hours. Plan of care discussed with Attending Dr. Melba Shah MD PGY 2 Disclaimer: This note was dictated by speech recognition. Minor errors in panel coverer may be present due to voice recognition software. Documentation for date of: 11/15/25 Subjective Subjective Interval history: Patient seen at bedside. No acute overnight events. Patient denies any chest pain, shortness of breath, abdominal pain, nausea, vomiting, dizziness. Patient's vitals and labs were reviewed. Patient making good urine and is drinking. Patient's heart rate in the low 50s. Continue to give more IV fluids per nephrology recommendation. Unable to sleep at night so we will give melatonin at night. Exam Vital Signs Temp Pulse Resp BP Pulse Ox O2 Del Method O2 Flow Rate 97.5 F 57 L 18 120/59 L 97 BiPAP 4 11/15/25 04:00 11/15/25 06:43 11/15/25 06:43 11/15/25 04:00 11/15/25 06:43 11/14/25 04:00 11/14/25 10:19 FiO2 45 11/14/25 07:20 Narrative Exam GENERAL: no acute distress, AAO x3, comfortably laying in bed HEENT: Head AT/ NC. Mucous membranes moist. PERRL. NECK: Supple, no lymphadenopathy, no carotid bruits. CARDIOVASCULAR: RRR. Normal S1/S2, No m/r/g. trace edema bilaterally . RESPIRATORY: decreased breath sounds on the R mid lung aceves and, right mid to low lung aceves with coarse ronchi, intermittent coughing. satting well on NC. GASTROINTESTINAL: Abdomen soft, non tender no palpable masses. Bowel sounds present MUSCULOSKELETAL: No cyanosis or edema, no visible joint swelling. NEUROLOGICAL: CN II-XII grossly intact. No focal deficits. Sensation intact, symmetric. PSYCHIATRIC: Awake and alert, not agitated, normal mood and affect. SKIN: No obvious rashes, no jaundice, normal turgor. Objective Labs 11/16/25 04:53 11/16/25 04:53 Labs: Laboratory Results - last 24 hr 11/14/25 11/15/25 16:14 05:13 WBC 3.0 L RBC 2.79 L Hgb 9.3 L Hct 26.1 L MCV 94 MCH 33.3 MCHC 35.6 RDW Std Deviation 51.0 H Plt Count 77 L Neut % (Auto) 65 Lymph % (Auto) 17 [place] % (Auto) 9 Eos % (Auto) 3 Baso % (Auto) 1 Neut # (Auto) 1.9 Lymph # (Auto) 0.5 L [place] # (Auto) 0.3 Eos # (Auto) 0.1 Baso # (Auto) 0.0 Immature Gran # (Auto) 0.15 H Absolute Nucleated RBC 0.00 Immature Gran % 5 H Nucleated RBC % 0 Sodium 139 139 Potassium 4.4 3.9 D Chloride 105 106 Carbon Dioxide 23.0 22.6 Anion Gap 11 10 BUN 54 H 55 H Creatinine 3.6 H 3.1 H D Estim Creat Clear Calc 19.5 L 22.6 L eGFR 17 L 20 L BUN/Creatinine Ratio 15 18 Glucose 106 D 113 H Calculated Osmolality 292 293 Calcium 8.5 8.5 Corrected Calcium 8.7 9.0 Phosphorus 3.9 4.0 Magnesium 1.9 2.0 Total Bilirubin 0.5 AST 70 H ALT 83 H Alkaline Phosphatase 57 Total Protein 5.2 L Albumin 3.7 3.4 Globulin 1.8 L Albumin/Globulin Ratio 1.9 Misc Test Result Platelets confirmed ABG Interpretation ABG results: 11/13/25 11/13/25 11/14/25 10:10 16:04 04:22 ABG pH 7.41 7.40 7.40 ABG pCO2 25 L 32 36 ABG pO2 53 L* 87 D 148 H D ABG HCO3 16 L 20 22 ABG O2 Saturation 88 L 95 100 H ABG Base Excess -7 L -4 L -2 Quality Measures Quality Measures none Advance care planning discussed with:: patient Assessment & Plan Assessment Current Active Medications: Generic Name Dose Route Start Last Admin Trade Name Freq PRN Reason Stop Dose Admin Acetaminophen 650 mg 11/13/25 12:19 Acetaminophen 325 Mg Tablet PO 12/13/25 12:18 Q6HR PRN pain 1-3 or temp>100.2 Albuterol/Ipratropium 3 ml 11/13/25 18:45 Albuterol/Ipratropium (Duoneb) Rt Mariela 3 Ml Nebu INH 12/13/25 18:59 Q6HRRT PRN wheezing or SOB Atorvastatin Calcium 40 mg 11/13/25 21:00 11/14/25 21:59 Atorvastatin Calcium 20 Mg Tablet PO 12/13/25 20:59 40 mg HS ANG Administration Dextrose 25 ml 11/13/25 15:05 Dextrose 50%-Water Inj 50 Ml Syringe IV 12/13/25 15:04 Q15MIN PRN BG 50-70 responsive npo pt Dextrose 50 ml 11/13/25 15:05 Dextrose 50%-Water Inj 50 Ml Syringe IV 12/13/25 15:04 Q15MIN PRN BG <50 OR BG <70 & pt unresponsive Famotidine 20 mg 11/13/25 21:00 11/15/25 09:17 Famotidine Inj 10 Mg/Ml Vial 2 Ml IVP 12/13/25 20:59 20 mg BID ANG Administration Glucagon 1 mg 11/13/25 15:05 Glucagon Inj 1 Mg Vial IM Q15MIN PRN BG <70, and no IV access Doxycycline Hyclate 100 mg/ 100 mls @ 100 mls/hr 11/14/25 21:00 11/15/25 09:16 Sodium Chloride IV 11/21/25 20:59 100 mls/hr BID ANG Administration Sodium Chloride 1,000 mls @ 80 mls/hr 11/15/25 10:06 Ns IV 12/15/25 10:05 .[id number] ANG Insulin Degludec 25 unit 11/14/25 21:00 11/14/25 22:00 Insulin Degludec 5 Unit/0.05 Ml (Per 5 Units) SC 12/14/25 20:59 25 unit HS ANG Administration Insulin Human Lispro 0 unit 11/13/25 18:45 11/15/25 07:36 Insulin Lispro (Admelog) 1 Unit/0.01 Ml Unit SC 12/13/25 18:44 Not Given ACHS [facility] Protocol Insulin Human Lispro 5 unit 11/15/25 12:00 Insulin Lispro (Admelog) 1 Unit/0.01 Ml Unit SC 12/15/25 11:59 TIDWM [facility] Melatonin 3 mg 11/15/25 21:00 Melatonin 3 Mg Tablet PO 12/15/25 20:59 HS [facility] Ondansetron HCl 4 mg 11/13/25 12:04 Ondansetron Inj 2 Mg/Ml Inj 2 Ml IVP 12/13/25 12:03 Q6H PRN NAUSEA OR VOMITING Protocol Sennosides 1 tab 11/15/25 09:00 11/15/25 09:17 Senna/Docusate Sod 1 Tab Tablet PO 12/15/25 08:59 1 tab QDAY [facility] Administration Protocol Plan 75 year old gentleman with a history of diffuse large B-cell lymphoma status postchemotherapy 2017 in remission, status postcraniotomy 2021, hypertension, hyperlipidemia, type 2 diabetes insulin-dependent who presented with hypotension, who was admitted to the ICU for cardiogenic shock, on dopamine drip. dopamine drip d/c on 11/14. GRADY on CKD stage IV- improving Oliguria Ddx: prerenal (more likely) vs intrarenal Dx: Cr 4.4-->3.8 --> 3.6 (today), baseline Cr: 2.4. suspect in setting of cardiogenic shock and poor perfusion likely prerenal, Consider nephrotoxicity of IVIG, however last infusion of ivig was about 2 weeks ago. Rx: encourage PO intake, give 1 L LR at 80cc/hr. CTM renal fuction BID. Avoid nephrotoxic agents, strict ins and outs, fuller cath placed. Rxx: if renal fxn worsens and decreased urine function consider HD. GPC bacteremia Preliminary blood cultures grew GPC resembling staph in 1 out of 2 bottles. Patient afebrile and vital signs remarkable for RR 27 and HR 55. started doxycycline IV 100mg BID Azithro 500 for 3 day course IV (11/13- ) Cefriaxone 1 gm 5 day course ( 11/13- 11/14) Repeat B ctx - result pending Acute Hypoxic Respiratory Failure - improved 2/2 Pneumonia Ddx CAP Dx patient may not be able to mount a big immune response given his hx of lymphoma his wbc 10 (he takes filgastrim injections every week), patient remains afebrile, able to expectorate yellow sputum, MRSA Nares pending, Rx Azithro 500 for 3 day course IV (11/13- ) Cefriaxone 1 gm 5 day course ( 11/13- 11/14) Rxx Insulin dependent Type 2 DM- well controlled Hyperglycemia Glucosuria Dx A1c 5.7, glucosuria 2/2 ckd, Rx Insulin SSI step 3, ACHS finger checks, Degludec 25 qhs, and Lispro scheduled with meals 8 units, Q6hr blood sugar checks, restart degludec 1/2 his home dose of 36 at 18 units q hs . gave 10 units regular insulin for hyperglycemia 400s, and sliding scale on top. Rxx Consider insulin drip if refractory to short acting vs regular insulin. Diffuse B cell Lymphoma in remission ?concern for tumor lysis Home meds: allopurinol 300mg qd (to prevent tumor lysis), acyclovir 400 (to prevent for CMV), lenalidomide 10 mg, Zanubrutinib 320mg qd Rx: monitor renal panel for signs of tumor lysis syndrome, thus far, no signs of tumor lysis thus far on electrolytes which were being checked q4, will transition to BID renal panels with mag. Sinus Braydcardia Ddx Cardiogenic shock Dx lactic resolved, and cap refill <3 sec, dopamine was discontinued, and able to self sustain his pressures Shock - resolved Metabolic Acidosis - resolved Lactic Acidosis - resolved Mildly elevated Betahydroxybutrate- resolved Ddx lactic acidosis in setting of cardiogenic shock Nausea and vomiting - resolved - Zofran PRN Dispo: Downgraded to Telemetry Diet: cardiac diet, with fluid restriction 1000 Lines: R a line, fuller catheter VTE ppx: heparin 5000 q12 GI ppx: famotidine 20 bid, Bowel Reg: docusate+ senna for constipation. Code status: FULL Case discussed with my attending Dr. Reilly, and senior resident, Dr. Pablo Barajas MD PGY-1 Attending Provider Attestation/Addendum I have seen and examined the patient. I was physically present for the fox portions of the services provided including history, physical exam, diagnosis, treatment plans and orders. I agree with assessment and plan of care as documented by residents. Even though this this note was carefully revised there may still be minor errors in panel coverer due to voice recognition software. Subash Bishwakarma, MD
[2025-11-15] MEDS: SODIUM CHLORIDE 0.9% 1000 ML 1,000 ML 80 ML IV ×2 (11:21→23:14)
[2025-11-15] MEDS: INSULIN LISPRO (AdmeLOG) 1 UNIT/0.01 ML UNIT 5 UNIT SC (11:50)
[2025-11-15] MEDS: INSULIN LISPRO (AdmeLOG) 1 UNIT/0.01 ML UNIT SC ×2 (11:50→20:25)
--- NOTE | 2025-11-15 11:57 | ESPR_ITS ---
Documentation for date of: 11/15/25 Subjective Subjective Interval history: History of Present Illness: Mr Geremias Melendrez is 75yM with PMH of diffuse large B-cell lymphoma status postchemotherapy 2017 in remission, status postcraniotomy 2021, hypertension, hyperlipidemia, type 2 diabetes insulin-dependent, presented to the ED on 11/13/2025 due to progressive malaise and generalized weakness. According to the patient, he developed flu like symptoms on friday (11/11), including myalgias and low grade fever. He took tylenol at home with minimal relief. His symptoms subsequently progressed to include nausea, muntiple episodes of vomiting, and several episodes of diarrhea. He also reports an episode of hypoxia at home during which is O2sat dropped to 79% and HR 70s. Patient received IVIG at [facility] last week friday. 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 In the ED, patient's WY dropped to 27, RR 29, and BP dropped to 77/45 and Oxymask of 15L to maintain 90%O2 sat. Patient was admitted to ICU for possibility of cardiogenic shock and Cardiology consulted complete AV block. In ED: Vitals: Temp: 98.7F, WY:27, RR:14, BP:122/41, O2sat 90% on Oxymask 15L Labs: WBC: 4.1, Hgb:10.6, Hct:30.8, Plt: 82, D-Dimer: 2020, ABG pH: 7.41, ABG pCO2: 25, A, BUN: 32, Cr: 4.1, eGFR:15, Glucose 281, Lactic acid: 8.2, Troponin 0.319, CRP: 6.8, BNP: 738, Procal: 4.62 CXR: Significant right lung pneumonia, Mild associated heart failure In ED, patient received Duoneb 3ml INH x1, Dopamine drip, IV Methylprednisolone 125 mg x1, Medical history: As stated above Surgical history: Craniotomy in 2021 at [facility] Allergies: NKDA Medications: apap 325, amlodipine 5 mg, asa 81, allopurinol 300mg qd, acyclovir, atorvastatin 40, folic acid 1mg , glipizide 10 mg , degludec 36 units qam, lenalidomide 10 mg, multivitamin , pantoprazole 40 mg, bactrim 800-160 three times a week, Zanubrutinib 320mg qd Family history: Noncontributory Social history: Denies smoking cigarettes, drinking alcohol or using other illicit drugs, 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 Patient has symptomatic bradycardia with EKG showing complete heart block. In the ED, patient's WY dropped to 27, RR 29, and BP dropped to 77/45 and Oxymask of 15L to maintain 90%O2 sat. Received dopamin drip in ED. Current BP is 110/52, WY:88. Pt has underlying metabolite imbalance, including hypomagnesemia. Correct electrolyte abnormalities. Ordered repeat EKG, and keep pads on patient, continue to monitor rhythm. ECHO is taken pending read. 11/14/2025: Patient' underlying conduction disturbances likely secondary to GRADY. Patient was on multiple nephrotoxic agents (Bactrim, acyclovir, allopurinol and IVIG). Recommend avoiding beta-blockers, Diltiazem, ACEi/ARBs for BP managment for now. If needs BP managment, recommend using amlodipine and hydralazine. 11/15/2025: Cr dropped from 3.6 to 3.1. Patient's GRADY is improving. Currently on IVF NS 80ml/hr. Replenish eletrolytes and avoid nephrotoxic agents. Still bradycardic. Avoid BP management for now. Patient denies any chest pain, SOB, or palpitations. He has no other complaints as of this moment. Exam Vital Signs Temp Pulse Resp BP Pulse Ox O2 Del Method O2 Flow Rate 97.5 F 57 L 18 120/59 L 97 BiPAP 4 11/15/25 04:00 11/15/25 06:43 11/15/25 06:43 11/15/25 04:00 11/15/25 06:43 11/14/25 04:00 11/14/25 10:19 FiO2 45 11/14/25 07:20 Narrative Exam General: No acute distress, well nourished, AAO x3 Eye: PERRL, EOMI, normal conjunctiva, no scleral icterus HENT: Normocephalic, atraumatic, hearing intact to conversation at normal volume, moist oral mucosa Neck: Supple, non-tender, no JVD, no lymphadenopathy Lungs: Non-labored respirations, symmetric chest rise, Clear to auscultate bilaterally, No wheezing, rhonchi, crackles Heart: Peripheral pulses intact bilaterally, Regular Rate and Rhythm. Abdomen: Soft, non-tender, non-distended, no palpable masses Musculoskeletal: No cyanosis or edema, No visible joint swelling Skin: Skin is warm, dry, no rashes or lesions. Psychiatric: Cooperative, appropriate mood and affect, Awake and alert, not agitated Neuro: Cranial nerves II-XII grossly intact. Sensations intact to light touch. Objective Labs 11/15/25 05:13 11/15/25 05:13 Labs: Laboratory Results - last 24 hr 11/14/25 11/15/25 16:14 05:13 WBC 3.0 L RBC 2.79 L Hgb 9.3 L Hct 26.1 L MCV 94 MCH 33.3 MCHC 35.6 RDW Std Deviation 51.0 H Plt Count 77 L Neut % (Auto) 65 Lymph % (Auto) 17 [place] % (Auto) 9 Eos % (Auto) 3 Baso % (Auto) 1 Neut # (Auto) 1.9 Lymph # (Auto) 0.5 L [place] # (Auto) 0.3 Eos # (Auto) 0.1 Baso # (Auto) 0.0 Immature Gran # (Auto) 0.15 H Absolute Nucleated RBC 0.00 Immature Gran % 5 H Nucleated RBC % 0 Sodium 139 139 Potassium 4.4 3.9 D Chloride 105 106 Carbon Dioxide 23.0 22.6 Anion Gap 11 10 BUN 54 H 55 H Creatinine 3.6 H 3.1 H D Estim Creat Clear Calc 19.5 L 22.6 L eGFR 17 L 20 L BUN/Creatinine Ratio 15 18 Glucose 106 D 113 H Calculated Osmolality 292 293 Calcium 8.5 8.5 Corrected Calcium 8.7 9.0 Phosphorus 3.9 4.0 Magnesium 1.9 2.0 Total Bilirubin 0.5 AST 70 H ALT 83 H Alkaline Phosphatase 57 Total Protein 5.2 L Albumin 3.7 3.4 Globulin 1.8 L Albumin/Globulin Ratio 1.9 Misc Test Result Platelets confirmed ABG Interpretation ABG results: 11/13/25 11/13/25 11/14/25 10:10 16:04 04:22 ABG pH 7.41 7.40 7.40 ABG pCO2 25 L 32 36 ABG pO2 53 L* 87 D 148 H D ABG HCO3 16 L 20 22 ABG O2 Saturation 88 L 95 100 H ABG Base Excess -7 L -4 L -2 Quality Measures Quality Measures none Advance care planning discussed with:: patient and other Assessment & Plan Assessment Current Active Medications: Generic Name Dose Route Start Last Admin Trade Name Freq PRN Reason Stop Dose Admin Acetaminophen 650 mg 11/13/25 12:19 Acetaminophen 325 Mg Tablet PO 12/13/25 12:18 Q6HR PRN pain 1-3 or temp>100.2 Albuterol/Ipratropium 3 ml 11/13/25 18:45 Albuterol/Ipratropium (Duoneb) Rt Mariela 3 Ml Nebu INH 12/13/25 18:59 Q6HRRT PRN wheezing or SOB Atorvastatin Calcium 40 mg 11/13/25 21:00 11/14/25 21:59 Atorvastatin Calcium 20 Mg Tablet PO 12/13/25 20:59 40 mg HS ANG Administration Dextrose 25 ml 11/13/25 15:05 Dextrose 50%-Water Inj 50 Ml Syringe IV 12/13/25 15:04 Q15MIN PRN BG 50-70 responsive npo pt Dextrose 50 ml 11/13/25 15:05 Dextrose 50%-Water Inj 50 Ml Syringe IV 12/13/25 15:04 Q15MIN PRN BG <50 OR BG <70 & pt unresponsive Famotidine 20 mg 11/13/25 21:00 11/15/25 09:17 Famotidine Inj 10 Mg/Ml Vial 2 Ml IVP 12/13/25 20:59 20 mg BID ANG Administration Glucagon 1 mg 11/13/25 15:05 Glucagon Inj 1 Mg Vial IM Q15MIN PRN BG <70, and no IV access Doxycycline Hyclate 100 mg/ 100 mls @ 100 mls/hr 11/14/25 21:00 11/15/25 09:16 Sodium Chloride IV 11/21/25 20:59 100 mls/hr BID ANG Administration Sodium Chloride 1,000 mls @ 80 mls/hr 11/15/25 10:06 11/15/25 11:21 Ns IV 12/15/25 10:05 80 mls/hr .[id number] ANG Administration Insulin Degludec 25 unit 11/14/25 21:00 11/14/25 22:00 Insulin Degludec 5 Unit/0.05 Ml (Per 5 Units) SC 12/14/25 20:59 25 unit HS ANG Administration Insulin Human Lispro 0 unit 11/13/25 18:45 11/15/25 11:50 Insulin Lispro (Admelog) 1 Unit/0.01 Ml Unit SC 12/13/25 18:44 3 unit ACHS ANG Administration Protocol Insulin Human Lispro 5 unit 11/15/25 12:00 11/15/25 11:50 Insulin Lispro (Admelog) 1 Unit/0.01 Ml Unit SC 12/15/25 11:59 5 unit TIDWM ANG Administration Melatonin 3 mg 11/15/25 21:00 Melatonin 3 Mg Tablet PO 12/15/25 20:59 HS ANG Ondansetron HCl 4 mg 11/13/25 12:04 Ondansetron Inj 2 Mg/Ml Inj 2 Ml IVP 12/13/25 12:03 Q6H PRN NAUSEA OR VOMITING Protocol Sennosides 1 tab 11/15/25 09:00 11/15/25 09:17 Senna/Docusate Sod 1 Tab Tablet PO 12/15/25 08:59 1 tab QDAY ANG Administration Protocol Plan Mr Geremias Melendrez is 75yM with PMH of diffuse large B-cell lymphoma status postchemotherapy 2017 in remission, status postcraniotomy 2021, hypertension, hyperlipidemia, type 2 diabetes insulin-dependent, presented to the ED on 11/13/2025 due to progressive malaise and generalized weakness. Patient was admitted to ICU for possibility of cardiogenic shock and Cardiology consulted for EKG showing complete AV block. #Symptomatic Bradycardia #Third Degree AV block- -Ddx: GRADY 2/2 CKD 2/2 Bactrim VS Extensive Pnuemonia -Patient has active infection -CXR showing active pneumonia. -Procal: 4.62, Lactic acid: 8.2 -Possible shock secondary to bradycardia. In the ED, patient's WY dropped to 27, RR 29, and BP dropped to 77/45 and Oxymask of 15L to maintain 90%O2 sat. -Metabolic workup showed pt has acute on CKD with Cr elevated to 4.1 -Patient was on dopamin drip in ED. Current BP is 110/52, WY:88 -Pt has underlying metabolite imbalance, including hypomagnesemia. -On EKG, HR was 26. Severe bradycardia AV dissociation on EKG. Pt has complete 3rd degree heart block on EKG with Atrial rate faster than ventricle rate. -Past ECHO (09/28/2023) showed: Normal LV size and function. Mild LVH. Estimated EF 55-60%, Normal RV size and function. Mild MAC. Trace MR. Mild AV sclerosis without stenosis. Moderate AI Trace TR. Negative bubble study. No evidence of PFO or ASD. -ECHO (11/13/2025) showed: 1. Left ventricle size is normal and systolic function is normal. Estimated ejection fraction is 55-60%. There is grade I diastolic dysfunction. There is mild concentric hypertrophy noted. 2. Right ventricle chamber size is normal and systolic function is normal. Estimated RVSP is 19 mmHg. 3. There is mild aortic valve sclerosis with no stenosis and mild regurgitation. 4. There is trace mitral and tricuspid valve regurgitation. Mild MAC. 5. There is trivial pericardial effusion with no tamponade. 6. Pleural effusion visualized. Plan: -Patient presented with severe bradycardia with heart rate of 26 bpm with A-V dissociation on the EKG concerning for complete heart block with a narrow complex junctional escape rhythm. Possible etiology mostly secondary to the acute kidney injury with BUN in the 80s and creatinine of greater than 4 in the setting of lactic acidosis, infection as well as Bactrim. Patient was on multiple nephrotoxic agents (Bactrim, acyclovir, allopurinol and IVIG). -Started the patient on dopamine drip as patient was also hypotensive and patient heart rate did improve to 88 and expect the patient to improve secondary to the reversible causes mentioned above. -No need of any urgent pacemaker unless patient is hemodynamically unstable and would continue to treat the primary cause - Dopamine drip titrated off and heart rate is stable between 45 and 60 bpm and no evidence of any heart blocks or any other arrhythmias.. -Recommend avoiding beta-blockers, Diltiazem, ACEi/ARBs for BP managment for now. -If needs BP managment, recommend using amlodipine and hydralazine. -Correct electrolyte abnormalities, Mg>2, K>4 #Mild Vascular congestion-component of diastolic congestive heart failure -CXR showed mild vascular congestion -On examination, No Lower extremity edema noted -Troponin 0.319, CRP: 6.8, BNP: 738 -Past ECHO (09/28/2023) showed: Normal LV size and function. Mild LVH. Estimated EF 55-60%, Normal RV size and function. Mild MAC. Trace MR. Mild AV sclerosis without stenosis. Moderate AI Trace TR. Negative bubble study. No evidence of PFO or ASD. -patient does not have chest pain or palpation Plan: -Continue to monitor and will diuresis fluid overloaded #CAP #Tachypnea 2/2 respiratory alkalosis #Hyperbilirubinemia #Acute renal failure #Hx of CKD #? 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 Geremias Melendrez. Cardiology will continue to follow Assessment and plan discussed with my attending physician Dr. Karina Brannon (PGY-1) - Internal medicine resident Attending Provider Attestation/Addendum I have personally seen and examined the patient separately on the above date of service and discussed the plan of care with the resident. I reviewed the resident Dr. Jesus Brannon consultation progress note and agree with the resident findings and plan in the note above and have also edited the documentation to reflect my findings and plan. Lino Collins M.D. Interventional Cardiology
--- NOTE | 2025-11-15 14:50 | PC.SS ---
GRADER [employer]AT conducted bedside contact with the patient conduct initial assessment and to discuss discharge planning.? Patient confirmed demographic information.? Patient resides at home with spouse, Payton Melendrez.? Patient does not utilize any form of DME to assist with ambulation.? Patient does not utilize home oxygen.? Patient describes the ability to complete ADL?s independently.? Patient identified spouse, Payton Melendrez; as medical surrogate decision maker.? Patient?s PCP is Dr. Julio.? Patient?s power and recovery supervisor is Dr. Rico.? Patient does not participate with dialysis.? Plan is for the patient to return home at the time of discharge.? Family will provide transportation on behalf of the patient.? No further discharge needs identified by the patient.? No further intervention required at this time, clinical social work therapist will be available to address any further concerns.? Next of Kin: Payton Edwardllo D/C Plan: Home
--- NOTE | 2025-11-15 16:47 | PC.PT ---
Patient is safe to ambulate to the bathroom and in the halls with 1 staff and a FWW. RN made aware.
[2025-11-15] MEDS: MELATONIN 3 MG TABLET PO (20:17)
[2025-11-15] MEDS: ATORVASTATIN CALCIUM 20 MG TABLET 40 MG PO (20:17)
[2025-11-15] MEDS: INSULIN DEGLUDEC 5 UNIT/0.05 ML (PER 5 UNITS) 25 UNIT SC (20:24)
[2025-11-16] VITALS (14 sets, daily range): BP systolic 111–151; BP diastolic 45–61; PULSE 51–57; RESP 12–98; TEMP 36.2; O2SAT 96–99; BMI 25.6
[2025-11-16 05:41] LABS: Basophils # (Auto) 0.0 Thou/mm3 (0.0-0.2); Basophils % (Auto) 1 % (0-2.5); Eosinophils # (Auto) 0.1 Thou/mm3 (0.0-0.5); Eosinophils % (Auto) 4 % (0-10); Hematocrit 25.7 % (41.0-53.0); Hemoglobin 9.1 g/dL (13.5-16.0); Immature Granulocytes Auto 0.32 Thou/mm3 (0.00-0.00); Lymphocytes # (Auto) 0.4 Thou/mm3 (1.0-4.8); Lymphocytes % (Auto) 17 % (10-50); Mean Corpuscular HGB Conc 35.4 g/dl (31.0-37.0); Mean Corpuscular Hemoglobin 33.3 pg (25.0-35.0); Mean Corpuscular Volume 94 fL (80-100); Monocytes # (Auto) 0.2 Thou/mm3 (0.0-0.8); Monocytes % (Auto) 9 % (0-12); Neutrophils # (Auto) 1.4 Thou/mm3 (1.8-7.7); Neutrophils % (Auto) 56 % (37-80); Nucleated Red Blood Cell # 0.00 Thou/mm3 (0.00-0.00); Nucleated Red Blood Cell % 0 /100 WBC (0); Platelet Count 93 Thou/mm3 (140-440); RDW Standard Deviation 50.4 fL (35.1-43.9); Red Blood Count 2.73 Miln/mm3 (4.50-5.90); White Blood Count 2.6 Thou/mm3 (3.8-10.6)
[2025-11-16 06:18] LABS: Alanine Aminotransferase 75 U/L (10-49); Albumin, Serum 3.5 gm/dL (3.4-4.8); Albumin/Globulin Ratio 2.2 (1.2-2.2); Alkaline Phosphatase 55 U/L (46-116); Anion Gap 11 (7-16); Aspartate Amino Transferase 39 U/L (0-34); BUN/Creatinine Ratio 17 Ratio (12-20); Bilirubin,Total 0.6 mg/dL (0.3-1.2); Blood Urea Nitrogen 40 mg/dL (9-23); Calcium 8.4 mg/dL (8.3-10.6); Calcium (Corrected) 8.8 mg/dL (8.5-10.1); Carbon Dioxide 21.9 mMol/L (20.0-31.0); Chloride 110 mMol/L (98-107); Creatinine (Component) 2.4 mg/dL (0.6-1.3); Estimated Creatinine Clearance 29.2 mL/min (>60); Globulin 1.6 gm/dL (2.3-3.5); Glucose 107 mg/dL (74-106); Magnesium 1.7 mg/dL (1.6-2.6); Osmolality,Calculated 294 (275-295); Phosphorous 3.7 mg/dL (2.4-5.1); Potassium 4.0 mMol/L (3.4-5.1); Sodium 143 mMol/L (136-145); Total Protein 5.1 gm/dL (5.7-8.2); eGFR 28 See Note
--- NOTE | 2025-11-16 08:00 | ESPR_ITS ---
Documentation for date of: 11/16/25 Subjective Subjective Interval history: History of Present Illness: Mr Geremias Melendrez is 75yM with PMH of diffuse large B-cell lymphoma status postchemotherapy 2017 in remission, status postcraniotomy 2021, hypertension, hyperlipidemia, type 2 diabetes insulin-dependent, presented to the ED on 11/13/2025 due to progressive malaise and generalized weakness. According to the patient, he developed flu like symptoms on friday (11/11), including myalgias and low grade fever. He took tylenol at home with minimal relief. His symptoms subsequently progressed to include nausea, muntiple episodes of vomiting, and several episodes of diarrhea. He also reports an episode of hypoxia at home during which is O2sat dropped to 79% and HR 70s. Patient received IVIG at [facility] last week friday. 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 In the ED, patient's WA dropped to 27, RR 29, and BP dropped to 77/45 and Oxymask of 15L to maintain 90%O2 sat. Patient was admitted to ICU for possibility of cardiogenic shock and Cardiology consulted complete AV block. In ED: Vitals: Temp: 98.7F, WA:27, RR:14, BP:122/41, O2sat 90% on Oxymask 15L Labs: WBC: 4.1, Hgb:10.6, Hct:30.8, Plt: 82, D-Dimer: 2020, ABG pH: 7.41, ABG pCO2: 25, A, BUN: 32, Cr: 4.1, eGFR:15, Glucose 281, Lactic acid: 8.2, Troponin 0.319, CRP: 6.8, BNP: 738, Procal: 4.62 CXR: Significant right lung pneumonia, Mild associated heart failure In ED, patient received Duoneb 3ml INH x1, Dopamine drip, IV Methylprednisolone 125 mg x1, Medical history: As stated above Surgical history: Craniotomy in 2021 at [facility] Allergies: NKDA Medications: apap 325, amlodipine 5 mg, asa 81, allopurinol 300mg qd, acyclovir, atorvastatin 40, folic acid 1mg , glipizide 10 mg , degludec 36 units qam, lenalidomide 10 mg, multivitamin , pantoprazole 40 mg, bactrim 800-160 three times a week, Zanubrutinib 320mg qd Family history: Noncontributory Social history: Denies smoking cigarettes, drinking alcohol or using other illicit drugs, 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 Patient has symptomatic bradycardia with EKG showing complete heart block. In the ED, patient's WA dropped to 27, RR 29, and BP dropped to 77/45 and Oxymask of 15L to maintain 90%O2 sat. Received dopamin drip in ED. Current BP is 110/52, WA:88. Pt has underlying metabolite imbalance, including hypomagnesemia. Correct electrolyte abnormalities. Ordered repeat EKG, and keep pads on patient, continue to monitor rhythm. ECHO is taken pending read. 11/14/2025: Patient' underlying conduction disturbances likely secondary to GRADY. Patient was on multiple nephrotoxic agents (Bactrim, acyclovir, allopurinol and IVIG). Recommend avoiding beta-blockers, Diltiazem, ACEi/ARBs for BP managment for now. If needs BP managment, recommend using amlodipine and hydralazine. 11/15/2025: Cr dropped from 3.6 to 3.1. Patient's GRADY is improving. Currently on IVF NS 80ml/hr. Replenish eletrolytes and avoid nephrotoxic agents. Still bradycardic. Avoid BP management for now. Patient denies any chest pain, SOB, or palpitations. He has no other complaints as of this moment. 11/16/2025: Patient Cr dropped from 3.1 to 2.4. His renal function has almost returned to his baseline. Patient is okay to be discharged on cardiology stand point. Make sure to avoid aggressive BP managment and avoid any nephrotoxic agents. Avoid beta blockers and Diltiazem since patient had symptomatic bradycarida and ACEi/ARBs because patient had GRADY. Recommend discharging patient with low dose amlodipine and hydralazine prn. Educated patient to hydrate well and follow up outpatient Cardiology within 1 week. Exam Vital Signs Temp Pulse Resp BP Pulse Ox O2 Del Method O2 Flow Rate 97.2 F 57 L 15 132/61 H 98 BiPAP 4 11/16/25 00:00 11/16/25 12:35 11/16/25 12:35 11/16/25 09:22 11/16/25 12:35 11/14/25 04:00 11/14/25 10:19 FiO2 45 11/14/25 07:20 Narrative Exam General: No acute distress, well nourished, AAO x3 Eye: PERRL, EOMI, normal conjunctiva, no scleral icterus HENT: Normocephalic, atraumatic, hearing intact to conversation at normal volume, moist oral mucosa Neck: Supple, non-tender, no JVD, no lymphadenopathy Lungs: Non-labored respirations, symmetric chest rise, Clear to auscultate bilaterally, No wheezing, rhonchi, crackles Heart: Peripheral pulses intact bilaterally, Regular Rate and Rhythm. Abdomen: Soft, non-tender, non-distended, no palpable masses Musculoskeletal: No cyanosis or edema, No visible joint swelling Skin: Skin is warm, dry, no rashes or lesions. Psychiatric: Cooperative, appropriate mood and affect, Awake and alert, not agitated Neuro: Cranial nerves II-XII grossly intact. Sensations intact to light touch. Objective Labs 11/16/25 04:53 11/16/25 04:53 Labs: Laboratory Results - last 24 hr 11/16/25 04:53 WBC 2.6 L RBC 2.73 L Hgb 9.1 L Hct 25.7 L MCV 94 MCH 33.3 MCHC 35.4 RDW Std Deviation 50.4 H Plt Count 93 L D Neut % (Auto) 56 Lymph % (Auto) 17 [place] % (Auto) 9 Eos % (Auto) 4 Baso % (Auto) 1 Neut # (Auto) 1.4 L Lymph # (Auto) 0.4 L [place] # (Auto) 0.2 Eos # (Auto) 0.1 Baso # (Auto) 0.0 Immature Gran # (Auto) 0.32 H Absolute Nucleated RBC 0.00 Immature Gran % 13 H Nucleated RBC % 0 Sodium 143 Potassium 4.0 Chloride 110 H Carbon Dioxide 21.9 Anion Gap 11 BUN 40 H Creatinine 2.4 H D Estim Creat Clear Calc 29.2 L eGFR 28 L BUN/Creatinine Ratio 17 Glucose 107 H Calculated Osmolality 294 Calcium 8.4 Corrected Calcium 8.8 Phosphorus 3.7 Magnesium 1.7 Total Bilirubin 0.6 AST 39 H ALT 75 H Alkaline Phosphatase 55 Total Protein 5.1 L Albumin 3.5 Globulin 1.6 L Albumin/Globulin Ratio 2.2 ABG Interpretation ABG results: 11/13/25 11/13/25 11/14/25 10:10 16:04 04:22 ABG pH 7.41 7.40 7.40 ABG pCO2 25 L 32 36 ABG pO2 53 L* 87 D 148 H D ABG HCO3 16 L 20 22 ABG O2 Saturation 88 L 95 100 H ABG Base Excess -7 L -4 L -2 Quality Measures Quality Measures none Advance care planning discussed with:: patient and other Assessment & Plan Assessment Current Active Medications: Generic Name Dose Route Start Last Admin Trade Name Freq PRN Reason Stop Dose Admin Acetaminophen 650 mg 11/13/25 12:19 Acetaminophen 325 Mg Tablet PO 12/13/25 12:18 Q6HR PRN pain 1-3 or temp>100.2 Albuterol/Ipratropium 3 ml 11/13/25 18:45 Albuterol/Ipratropium (Duoneb) Rt Mariela 3 Ml Nebu INH 12/13/25 18:59 Q6HRRT PRN wheezing or SOB Amlodipine Besylate 5 mg 11/16/25 09:00 11/16/25 09:22 Amlodipine Besylate 5 Mg Tablet PO 12/16/25 08:59 5 mg QDAY ANG Administration Atorvastatin Calcium 40 mg 11/13/25 21:00 11/15/25 20:17 Atorvastatin Calcium 20 Mg Tablet PO 12/13/25 20:59 40 mg HS ANG Administration Dextrose 25 ml 11/13/25 15:05 Dextrose 50%-Water Inj 50 Ml Syringe IV 12/13/25 15:04 Q15MIN PRN BG 50-70 responsive npo pt Dextrose 50 ml 11/13/25 15:05 Dextrose 50%-Water Inj 50 Ml Syringe IV 12/13/25 15:04 Q15MIN PRN BG <50 OR BG <70 & pt unresponsive Famotidine 20 mg 11/13/25 21:00 11/16/25 09:22 Famotidine Inj 10 Mg/Ml Vial 2 Ml IVP 12/13/25 20:59 20 mg BID ANG Administration Glucagon 1 mg 11/13/25 15:05 Glucagon Inj 1 Mg Vial IM Q15MIN PRN BG <70, and no IV access Doxycycline Hyclate 100 mg/ 100 mls @ 100 mls/hr 11/14/25 21:00 11/16/25 09:22 Sodium Chloride IV 11/21/25 20:59 100 mls/hr BID ANG Administration Insulin Degludec 25 unit 11/14/25 21:00 11/15/25 20:24 Insulin Degludec 5 Unit/0.05 Ml (Per 5 Units) SC 12/14/25 20:59 25 unit HS ANG Administration Insulin Human Lispro 0 unit 11/13/25 18:45 11/16/25 12:10 Insulin Lispro (Admelog) 1 Unit/0.01 Ml Unit SC 12/13/25 18:44 Not Given ACHS ANG Protocol Insulin Human Lispro 5 unit 11/15/25 12:00 11/16/25 12:10 Insulin Lispro (Admelog) 1 Unit/0.01 Ml Unit SC 12/15/25 11:59 Not Given TIDWM ANG Melatonin 3 mg 11/15/25 21:00 11/15/25 20:17 Melatonin 3 Mg Tablet PO 12/15/25 20:59 3 mg HS ANG Administration Ondansetron HCl 4 mg 11/13/25 12:04 Ondansetron Inj 2 Mg/Ml Inj 2 Ml IVP 12/13/25 12:03 Q6H PRN NAUSEA OR VOMITING Protocol Sennosides 1 tab 11/15/25 09:00 11/16/25 09:23 Senna/Docusate Sod 1 Tab Tablet PO 12/15/25 08:59 Not Given QDAY ANG Protocol Plan Mr Geremias Melendrez is 75yM with PMH of diffuse large B-cell lymphoma status postchemotherapy 2017 in remission, status postcraniotomy 2021, hypertension, hyperlipidemia, type 2 diabetes insulin-dependent, presented to the ED on 11/13/2025 due to progressive malaise and generalized weakness. Patient was admitted to ICU for possibility of cardiogenic shock and Cardiology consulted for EKG showing complete AV block. #Symptomatic Bradycardia #Third Degree AV block- -Ddx: GRADY 2/2 CKD 2/2 Bactrim VS Extensive Pnuemonia -Patient has active infection -CXR showing active pneumonia. -Procal: 4.62, Lactic acid: 8.2 -Possible shock secondary to bradycardia. In the ED, patient's WA dropped to 27, RR 29, and BP dropped to 77/45 and Oxymask of 15L to maintain 90%O2 sat. -Metabolic workup showed pt has acute on CKD with Cr elevated to 4.1 -Patient was on dopamin drip in ED. Current BP is 110/52, WA:88 -Pt has underlying metabolite imbalance, including hypomagnesemia. -On EKG, HR was 26. Severe bradycardia AV dissociation on EKG. Pt has complete 3rd degree heart block on EKG with Atrial rate faster than ventricle rate. -Past ECHO (09/28/2023) showed: Normal LV size and function. Mild LVH. Estimated EF 55-60%, Normal RV size and function. Mild MAC. Trace MR. Mild AV sclerosis without stenosis. Moderate AI Trace TR. Negative bubble study. No evidence of PFO or ASD. -ECHO (11/13/2025) showed: 1. Left ventricle size is normal and systolic function is normal. Estimated ejection fraction is 55-60%. There is grade I diastolic dysfunction. There is mild concentric hypertrophy noted. 2. Right ventricle chamber size is normal and systolic function is normal. Estimated RVSP is 19 mmHg. 3. There is mild aortic valve sclerosis with no stenosis and mild regurgitation. 4. There is trace mitral and tricuspid valve regurgitation. Mild MAC. 5. There is trivial pericardial effusion with no tamponade. 6. Pleural effusion visualized. Plan: -Patient presented with severe bradycardia with heart rate of 26 bpm with A-V dissociation on the EKG concerning for complete heart block with a narrow complex junctional escape rhythm. Possible etiology mostly secondary to the acute kidney injury with BUN in the 80s and creatinine of greater than 4 in the setting of lactic acidosis, infection as well as Bactrim. Patient was on multiple nephrotoxic agents (Bactrim, acyclovir, allopurinol and IVIG). -No need of any urgent pacemaker unless patient is hemodynamically unstable and would continue to treat the primary cause -Dopamine drip titrated off and heart rate is stable between 45 and 60 bpm and no evidence of any heart blocks or any other arrhythmias.. -Recommend avoiding beta-blockers, Diltiazem, ACEi/ARBs for BP managment for now. -If needs BP managment, recommend using amlodipine and hydralazine. -Correct electrolyte abnormalities, Mg>2, K>4 #Mild Vascular congestion-component of diastolic congestive heart failure -CXR showed mild vascular congestion -On examination, No Lower extremity edema noted -Troponin 0.319, CRP: 6.8, BNP: 738 -Past ECHO (09/28/2023) showed: Normal LV size and function. Mild LVH. Estimated EF 55-60%, Normal RV size and function. Mild MAC. Trace MR. Mild AV sclerosis without stenosis. Moderate AI Trace TR. Negative bubble study. No evidence of PFO or ASD. -patient does not have chest pain or palpation Plan: -Continue to monitor and will diuresis fluid overloaded #CAP #Tachypnea 2/2 respiratory alkalosis #Hyperbilirubinemia #Acute renal failure #Hx of CKD #? 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 Geremias Melendrez. Cardiology will continue to follow Assessment and plan discussed with my attending physician Dr. Karina Brannon (PGY-1) - Internal medicine resident Attending Provider Attestation/Addendum I have personally seen and examined the patient separately on the above date of service and discussed the plan of care with the resident. I reviewed the resident Dr. Jesus Brannon consultation progress note and agree with the resident findings and plan in the note above and have also edited the documentation to reflect my findings and plan. Lino Collins M.D. Interventional Cardiology
--- NOTE | 2025-11-16 09:09 | PD.NEPHPROG ---
Documentation for date of: 11/16/25 Subjective Subjective Interval history: Mr Melendrez is a 75 year old gentleman with a history of diffuse large B-cell lymphoma status postchemotherapy 2017( at [facility]-currently on acyclovir, allopurinol,zarxio, folic acid, Revlimid, Bactrim, Brukinsa, IV IG qm) status postcraniotomy 2021, hypertension, hyperlipidemia, type 2 diabetes insulin-dependent, presented to the emergency department with nausea, vomiting, malaise and weakness. Has decreased p.o. intake for the last couple of days along with diarrhea. Patient was brought by his . In the ED he was noted to be very hypotensive, heart rate in less than 30. Patient was started on dopamine drip and transferred to ICU. HOME MEDS: apap 325, amlodipine 5 mg, asa 81, allopurinol 300mg qd, acyclovir, atorvastatin 40, folic acid 1mg , glipizide 10 mg , degludec 36 units qam, lenalidomide 10 mg, multivitamin , pantoprazole 40 mg, bactrim 800-160 three times a week, Zanubrutinib 320mg qd ED Course: patient was hypotensive, started on dopamine drip, cards was consulted, shaunumandltopher, labs notable for trop 0.3, hgb 12.4, wbc 10.4 (patient takes filgastram), d dimer 2019, hco3 17, Cr 4.4 with baseline 2.4, Lactic acid 8 downtrended to 2.4, uric acid 4.6, Phos wnl, mag 1.4, T miri 1.4, D miri 0.6, uncongugated miri 0.8, BNP 738,, UA with proteinuria, and glucosuria, otherwise bland, utox negative, Betahydroxybuyrate 0.9. Tx given solumedrol 125, nitroglycerine was started, 5 gm magnesium, 40 IV lasix, 2 iv morphine, ceftriaxone and azythromycin. 11/14/2025 renal consultation requested for GRADY. Patient is one of my CKD patients. PCP-Dr. Julio Currently seen in ICU. On dopamine drip. Denies any chest pain, shortness of breath. Did receive 1 dose of IV Lasix. ICU team at bedside 11/15/2025 patient currently seen in ICU. On telemetry status. Labs and medications have been reviewed. Creatinine tad better. I spoke to Dr. Lal at [facility]-recommended to hold off on IVIG, Brukinsa, Revlimid. Will see him in the outpatient setting. Agree with continuing gentle IV fluids. Blood pressure 130/67, heart rate 56, blood sugar 122. WBC 3, hemoglobin 9.3, platelets 77. Creatinine 3.1, GFR 20, AST 70, ALT 83, albumin 3.4 echocardiogram showed normal ejection fraction. MRI abdomen showed no hydronephrosis 11/16/2025 patient currently seen in [facility] telemetry. Resting comfortably. Denies any chest pain, shortness of breath. Denies any nausea, vomiting. Labs and medications have been reviewed. Creatinine markedly improved with IV fluids. Renal ascencio stable for discharge. Exam Vital Signs Temp Pulse Resp BP Pulse Ox O2 Del Method O2 Flow Rate 36.2 C 57 L 15 132/61 H 98 BiPAP 4 11/16/25 00:00 11/16/25 12:35 11/16/25 12:35 11/16/25 09:22 11/16/25 12:35 11/14/25 04:00 11/14/25 10:19 FiO2 45 11/14/25 07:20 Narrative Exam GENERAL APPEARANCE: Patient seems to be comfortable, adequately hydrated and nourished. HEENT: EOMI, PERRLA NECK: Neck supple, no JVD or bruit CARDIOVASCULAR: Heart regular, no murmurs LUNGS/CHEST: Chest clear to auscultation. No rales, rhonchi, wheezing ABDOMEN: Soft, nontender, nondistended. No masses. Normal bowel sounds. EXTREMITIES: No edema, clubbing or cyanosis. SKIN: Skin exam normal without any rashes MUSCULOSKELETAL: Musculoskeletal exam normal PSYCHIATRIC: Normal mood, affect LYMPHATICS: No lymphadenopathy noted NEUROLOGICAL : No neurological deficits Objective Labs 11/16/25 04:53 11/16/25 04:53 Labs: Laboratory Results - last 24 hr 11/16/25 04:53 WBC 2.6 L RBC 2.73 L Hgb 9.1 L Hct 25.7 L MCV 94 MCH 33.3 MCHC 35.4 RDW Std Deviation 50.4 H Plt Count 93 L D Neut % (Auto) 56 Lymph % (Auto) 17 [place] % (Auto) 9 Eos % (Auto) 4 Baso % (Auto) 1 Neut # (Auto) 1.4 L Lymph # (Auto) 0.4 L [place] # (Auto) 0.2 Eos # (Auto) 0.1 Baso # (Auto) 0.0 Immature Gran # (Auto) 0.32 H Absolute Nucleated RBC 0.00 Immature Gran % 13 H Nucleated RBC % 0 Sodium 143 Potassium 4.0 Chloride 110 H Carbon Dioxide 21.9 Anion Gap 11 BUN 40 H Creatinine 2.4 H D Estim Creat Clear Calc 29.2 L eGFR 28 L BUN/Creatinine Ratio 17 Glucose 107 H Calculated Osmolality 294 Calcium 8.4 Corrected Calcium 8.8 Phosphorus 3.7 Magnesium 1.7 Total Bilirubin 0.6 AST 39 H ALT 75 H Alkaline Phosphatase 55 Total Protein 5.1 L Albumin 3.5 Globulin 1.6 L Albumin/Globulin Ratio 2.2 ABG Interpretation ABG results: 11/13/25 11/13/25 11/14/25 10:10 16:04 04:22 ABG pH 7.41 7.40 7.40 ABG pCO2 25 L 32 36 ABG pO2 53 L* 87 D 148 H D ABG HCO3 16 L 20 22 ABG O2 Saturation 88 L 95 100 H ABG Base Excess -7 L -4 L -2 Assessment & Plan Assessment and plan (1) GRADY (acute kidney injury): Status: Acute Assessment and plan: GRADY on CKD stage III. Most likely related to prerenal azotemia from decreased p.o. intake versus med related. Patient also noted to have hypotension and complete heart block on admission. Question related to viral illness. Clinically patient looks rather hypovolemic. Will give gentle IV fluids today. Heart rate in 59. Hold off on all nephrotoxic medications. Underlying CKD-probably related to the chemotherapy which she received and also IVIG which she has been getting q. monthly. Did talk to [facility] leukemia specialist-Dr. Lal-will hold off on current medications for now. She will follow him as an outpatient. Renal ultrasound showed no hydronephrosis (2) Sepsis: Status: Acute Assessment and plan: Low blood pressure, low heart rate rule out sepsis. Pending cultures. On antibiotics. Noted elevated LFTs-probably related to underlying hypotension. Hopefully improved (3) Complete heart block: Status: Acute Assessment and plan: Probably related to a viral illness. Recovered with a dopamine drip (4) B-cell lymphoma: Status: Acute Assessment and plan: High-grade B-cell lymphoma-underwent [facility] clinical trial. Multiple medications. Mets to brain. Patient currently on Brukinsa, IVIG, Revlimid (5) Diabetes mellitus: Status: Acute Assessment and plan: 1. Check blood sugars twice daily, log them and bring them back with the next visit. 2. is blood sugars above 400 or less than 80, call M.D. 3. Stay active and physically fit 4. Comply with diet and medications 5. Low carbohydrate diet Additional Assessment & Plan Additional Plan: Care discussed with primary team PROCEDURES: Arterial Line Size (Gauge): 18
--- NOTE | 2025-11-16 09:11 | PC.SS ---
SS follow up note; [facility] rec's pending at the time. Patient will discharge home when medically cleared.
[2025-11-16] MEDS: DOXYCYCLINE INJ 100 MG in SODIUM CHLORIDE 0.9% (POP) 100 ML IV (09:22)
[2025-11-16] MEDS: FAMOTIDINE INJ 10 MG/ML VIAL 2 ML 20 MG IVP (09:22)
--- NOTE | 2025-11-16 15:12 | ESDS_ITS ---
Planned Discharge Date 11/16/25 DS: Providers Provider Date of admission: 11/13/25 12:04 Primary care physician: Chivo Julio MD Admitting Provider: Jack Pinon MD Attending Provider on Admission: Crystal Reilly MD Consults: 11/13/25 09:50 Referral Physical Therapy Stat Comment: Physician Instructions: Instructions: BiPAP 11/13/25 10:41 Consult to Cardiology Stat Comment: Complete heart block! Consulting Provider: Lino Collins 11/13/25 12:09 Consult to Nephrology Routine Comment: acute renal failure Consulting Provider: Gato Rico Attending Provider on DC: Crystal Reilly MD Discharging Provider: Joaquin Solano DO DS: Diagnosis Problem List Completed Was Problem List Reviewed/Reconciled?: Yes Hospital Course Hospital Course Hospital course: Mr Melendrez is a 75 year old gentleman with a history of diffuse large B-cell lymphoma status postchemotherapy 2017 in remission, status postcraniotomy 2021, hypertension, hyperlipidemia, type 2 diabetes insulin-dependent, who came to the emergency department with a chief complaint of malaise and weakness on 11/14/2025. He reported that on 11/11 he felt fluish for which he took apap, endorsed diarrhea, night sweats, and weakness which prompted him to come to the ED. Admitted to the ICU for cardiogenic shock, initiated on dopamine drip, with goal of SBP>90, Art line was placed. Nephrology was consulted given GRADY on CKD, presntation Cr 4.5, follows closely with Dr Rico outpatient. In the AM dopamine drip was discontinued given his good perfusion and maintained sbp. 1 bag LR given concern for prerenal etiology of grady, he continued to make urine 25-50cc, Cr downtrending to 3.8. CXR showed decreased vascular congestion (patient recieved x1 lasix in the ED), and R sided PNA, on exam he had ronchi more notable in the R lung aceves. Patient was treated with azithromycin 500 mg TID (11/13--11/15) and ceftriaxone IV 1 g (11/13--11/14). On 11/15 Cr downtren ding, 3.6, and patient stateed that his weakness and SOB have improved. Dr. Lal at [facility]-recommended to hold off on IVIG, Brukinsa, Revlimid. On 11/16, Cr 2.4 on gentle maintenance fluids. Blood cultures grew Staphylococcus epidermidis in 1 out of 2 bottles, doxycycline 100 mg twice daily (11/14 -11/16) and patient will take Augmentin as outpatient. Patient remained afebrile without leukocytosis. At the time of discharge, patient is medically stable and deemed safe to return to his/her previous state of living. Imaging: -ECHO (11/13/2025) showed: 1. Left ventricle size is normal and systolic function is normal. Estimated ejection fraction is 55-60%. There is grade I diastolic dysfunction. There is mild concentric hypertrophy noted. 2. Right ventricle chamber size is normal and systolic function is normal. Estimated RVSP is 19 mmHg. 3. There is mild aortic valve sclerosis with no stenosis and mild regurgitation. 4. There is trace mitral and tricuspid valve regurgitation. Mild MAC. 5. There is trivial pericardial effusion with no tamponade. 6. Pleural effusion visualized. Admission Diagnoses: GRADY on CKD stage IV- improving Oliguria GPC bacteremia Acute Hypoxic Respiratory Failure - improved 2/2 Pneumonia Insulin dependent Type 2 DM- well controlled Hyperglycemia Glucosuria Diffuse B cell Lymphoma in remission ?concern for tumor lysis Sinus Braydcardia Shock - resolved Metabolic Acidosis - resolved Lactic Acidosis - resolved Mildly elevated Betahydroxybutrate- resolved Nausea and vomiting - resolved Discharge Instructions: ? We have put a hold on new Brukinsa, Revlimid, Bactrim,allpopurinol and benazepril until you follow-up with Dr. Lal. ? We have stopped your home medication of amlodipine and enalapril. - Recommend avoiding beta-blockers, Diltiazem, ACEi/ARBs for BP managment for now. ? You have been started on amlodipine 5 mg p.o. daily for your blood pressure. - You have been started on an antibiotic, augmentin for your lung infection.Take for 2 more days ? Continue the rest of your home medication as before. ? Follow-up with Dr. Lal within 1 week of discharge. ? Recommend to follow-up with a hydraulic rockbreaker operator within 1 week of discharge. ? Follow-up with Dr. Rico within 1 week of discharge. - Follow up with your primary care physician within 1 week of discharge. Do a renal panel before you see them. If you do not have a primary care physician, please follow up with the [facility] Residents clinic ([phone]) ? If you experience any new, worsening or persistent symptoms either call your primary doctor, or dial 911 or present to the emergency department. This case was discussed with my attending physician, Dr. Reilly, and senior resident, Dr Peres. Even though this this note was carefully revised there may still be minor errors in advanced manufacturing vice president due to voice recognition software. Joaquin Solano, DO PGY I Senior Resident Attestation: I discussed with and supervised the architect internship physician involved in the care of this patient. I personally saw and examined the patient and discussed the assessment and plan with the entire medicine team, including my attending. I agree with the discharge plan as documented above. Hipolito Peres MD PGY3 Internal Medicine Status at Discharge Functional status at discharge: independent ambulation Time Spent with Patient Time attestation: Total time spent providing and/or coordinating discharge services: 36 minutes Time spent: Greater than 30 minutes Exam Vital Signs Temp Pulse Resp BP Pulse Ox O2 Del Method O2 Flow Rate 97.2 F 57 L 15 132/61 H 98 BiPAP 4 11/16/25 00:00 11/16/25 12:35 11/16/25 12:35 11/16/25 09:22 11/16/25 12:35 11/14/25 04:00 11/14/25 10:19 FiO2 45 11/14/25 07:20 Narrative Exam GENERAL: no acute distress, AAO x3, comfortably laying in bed HEENT: Head AT/ NC. Mucous membranes moist. PERRL. NECK: Supple, no lymphadenopathy, no carotid bruits. CARDIOVASCULAR: RRR. Normal S1/S2, No m/r/g. trace edema bilaterally . RESPIRATORY: decreased breath sounds on the R mid lung aceves and, right mid to low lung aceves with coarse ronchi, intermittent coughing. satting well on NC. GASTROINTESTINAL: Abdomen soft, non tender no palpable masses. Bowel sounds present MUSCULOSKELETAL: No cyanosis or edema, no visible joint swelling. NEUROLOGICAL: CN II-XII grossly intact. No focal deficits. Sensation intact, symmetric. PSYCHIATRIC: Awake and alert, not agitated, normal mood and affect. SKIN: No obvious rashes, no jaundice, normal turgor. Discharge Plan Plan Patient Disposition: HOME (Self Care) Patient condition on transfer: Stable and Benefits outweigh risks Care Plan Goals: ? We have put a hold on new Brukinsa, Revlimid, Bactrim,allpopurinol and benazepril until you follow-up with Dr. Lal. ? We have stopped your home medication of amlodipine and enalapril. ? You have been started on amlodipine 5 mg p.o. daily for your blood pressure. - You have been started on an antibiotic, augmentin for your lung infection.Take for 2 more days ? Continue the rest of your home medication as before. ? Follow-up with Dr. Lal within 1 week of discharge. ? Recommend to follow-up with a hydraulic rockbreaker operator within 1 week of discharge. ? Follow-up with Dr. Rico within 1 week of discharge. - Follow up with your primary care physician within 1 week of discharge. Do a renal panel before you see them. If you do not have a primary care physician, please follow up with the [facility] Residents clinic ([phone]) ? If you experience any new, worsening or persistent symptoms either call your primary doctor, or dial 911 or present to the emergency department. Prescriptions/Referrals Prescriptions/Med Rec: New amlodipine 5 mg Tablet 5 mg PO QDAY 30 Days Qty: 30 0RF amoxicillin-pot clavulanate 500-125 mg tablet 1 tab PO BID 2 Days Qty: 4 0RF Rx Instructions: Got 3 days in hospital. Needs 2 more days Continued atorvastatin [Lipitor] 40 mg tablet 40 mg PO .QHS glipizide 10 mg tablet 10 mg PO BIDAC Patient Comments: TAKE 1 TABLET BY MOUTH TWICE A DAY BEFORE MEALS acyclovir 400 mg tablet 400 mg PO BID folic acid 1 mg tablet 1 mg PO QDAY Patient Comments: TAKE 1 TABLET BY MOUTH EVERY DAY (DME) pen needle, diabetic [BD Ultra-Fine Jenny Pen Needle] 32 gauge x 5/32 n eedle pantoprazole [Protonix] 40 mg Tablet,Delayed Release (Dr/Ec) 40 mg PO QDAY senna 8.6 mg Capsule 8.6 mg PO PRN PRN (Reason: Constipation) aspirin 81 mg capsule 81 mg PO QDAY Qty: 30 0RF Zarxio 300 mcg/0.5 mL syringe 300 mcg .ROUTE .COMPLEX Rx Instructions: 300 mcg Inject 0.5mLs (300 mcg total) under the skin two (2) times a week. for ANC <1000 or as directed by your physician; cholecalciferol (vitamin D3) [Vitamin D3] 10 mcg (400 unit) tablet 10 mcg PO QDAY Patient Comments: TAKE 1 TABLET (10 MCG TOTAL) BY MOUTH DAILY. multivitamin [Daily Multi-Vitamin] Tablet 1 tab PO QDAY insulin degludec [Tresiba FlexTouch U-100] 100 unit/mL (3 mL) insulin pen 24 unit SUBCUT QAM Patient Comments: INJECT 24 UNITS SUBCUTANEOUSLY EVERY DAY calcitriol 0.25 mcg capsule 0.25 mcg PO QDAY Patient Comments: TAKE 1 CAPSULE BY MOUTH 3 TIMES WEEKLY Held allopurinol 300 mg tablet 300 mg PO QDAY Hold Instructions: Resume on 11/30/25. Hold until you see Dr. Lal lenalidomide [Revlimid] 10 mg capsule 10 mg PO .COMPLEX Hold Instructions: Resume on 11/30/25. Hold until You follow with Dr. Lal Rx Instructions: 10 mg orally once Daily for 4days on, 3 days off every 7 days of each 28 days cycle; sulfamethoxazole-trimethoprim 800-160 mg tablet 1 tab PO .3x a week Hold Instructions: Resume on 11/30/25. Hold until You follow with Dr. Lal Patient Comments: TAKE 1 TABLET BY MOUTH THREE TIMES A WEEK Brukinsa 160 mg tablet 320 mg PO QDAY Hold Instructions: Resume on 11/30/25. Hold until You follow with Dr. Lal benazepril 5 mg tablet 5 mg PO QDAY Hold Instructions: Resume on 11/30/25. Hold until you see PCP. You were in ICU with Cardiogenic shock Discontinued acetaminophen-codeine 300-30 mg tablet 1 tab PO BID PRN (Reason: pain) Qty: 10 0RF enalapril maleate [Vasotec] 10 mg tablet 10 mg PO BID amlodipine 10 mg tablet 10 mg PO QDAY Patient Comments: TAKE 1 TABLET BY MOUTH EVERY DAY Referrals: Lino Collins MD [Physician, Cardiology] Chivo Julio MD [Primary Care Provider, Family Practice] Gato Rico MD [Physician, Nephrology] Outpatient Orders (i.e. Home Health, Labs, Imaging): Renal Function Panel (Routine) Timeframe: 1 Week Location: Determined by Patient Ordered By: Jeff Shah Patient/Caregiver Discharge Instructions Education Materials: Acute Kidney Failure Dc Print Language: Portuguese Stand Alone Forms: Cyndy Award Info., Patient Portal Info Letter Discharge Order Discharge Orders: Discharge (Routine); Ordered 11/16/25 Ordered By: Jeff Shah Quality Discharge Quality Measures VTE prophylaxis MD Attestestation MD Attestation I have seen and examined the patient. I was physically present for the fox portions of the services provided including history, physical exam, diagnosis, treatment plans and orders. I agree with assessment and plan of care as documented by residents. Even though this this note was carefully revised there may still be minor errors in advanced manufacturing vice president due to voice recognition software. Crystal Reilly MD
== END 2025-11-16 12:25 | disposition home or self-care (01) | DRG 682 ==
LOC: SERX 11:46 → SERHOLD 12:34 → S2SX 15:25
PROVIDERS: Internal Medicine; Admitting Provider Internal Medicine Critical Care Medicine; Emergency Provider Emergency Medicine; PCP Family Medicine; Visit Provider Student in an Organized Health Care Education/Training Program
DX: N17.9 Acute kidney failure, unspecified (principal); I21.A1 Myocardial infarction type 2; J18.9 Pneumonia, unspecified organism; R57.0 Cardiogenic shock; J96.01 Acute respiratory failure with hypoxia; C85.1A Unspecified B-cell lymphoma, in remission; E87.20 Acidosis, unspecified; C79.31 Secondary malignant neoplasm of brain; I13.0 Hypertensive heart and chronic kidney disease with heart failure and stage 1 through stage 4 chronic kidney disease, or unspecified chronic kidney disease; E87.4 Mixed disorder of acid-base balance; I50.30 Unspecified diastolic (congestive) heart failure; I44.2 Atrioventricular block, complete; I45.89 Other specified conduction disorders; N18.4 Chronic kidney disease, stage 4 (severe); E87.5 Hyperkalemia; D63.8 Anemia in other chronic diseases classified elsewhere; Z92.21 Personal history of antineoplastic chemotherapy; E78.5 Hyperlipidemia, unspecified; E11.22 Type 2 diabetes mellitus with diabetic chronic kidney disease; E11.65 Type 2 diabetes mellitus with hyperglycemia; E88.3 Tumor lysis syndrome; Z79.4 Long term (current) use of insulin; E83.42 Hypomagnesemia; I35.8 Other nonrheumatic aortic valve disorders; I08.1 Rheumatic disorders of both mitral and tricuspid valves; Z79.84 Long term (current) use of oral hypoglycemic drugs
CPT/HCPCS: 36415; 36600; 51702; 71045; 80053; 80069; 80307; 80320; 81001; 82010; 82140; 82150; 82248; 82550; 82570; 82803; 83036; 83605; 83690; 83735; 83880; 84100; 84145; 84300; 84443; 84484; 84540; 84550; 85014; 85018; 85025; 85379; 85652; 86140; 87040; 87077; 87081; 87186; 87205; 87502; 87635; 93005; 93306; 94640; 94660; 96365; 96366; 96375; 97162; 99291; 99292; A4314; A9270; J0456; J0613; J0696; J1265; J1815; J2919; J3475; J3490; J7030; J7050; J7120; G0480